=== PATIENT | female | born 1995 | race Caucasian/White ===

== ENCOUNTER 2024-07-09 09:20 | Outpatient (CLI) | payer OTHER, SELFPAY ==
[2024-07-09 09:52] LABS: Basophils Absolute Auto 0.04 K/mm3 (0.00-0.10); Basophils Percent Auto 0.5 % (0.0-1.0); Eosinophils Absolute Auto 0.23 K/mm3 (0.02-0.50); Eosinophils Percent Auto 3.1 % (1.0-6.0); Hemoglobin 12.8 g/dL (12.0-15.0); Immature Granulocyte Absolute 0.01 K/mm3 (0.00-0.00); Immature Granulocyte Percent A 0.1 % (0.0-0.0); Lymphocytes Absolute Auto 1.73 K/mm3 (1.10-4.50); Lymphocytes Percent Auto 23.7 % (18.0-42.0); Mean Corpuscular HGB Conc 31.2 g/dL (32-36); Mean Corpuscular Hemoglobin 25.1 pg (27.0-31.0); Mean Corpuscular Volume 80.4 fL (78.0-102.0); Mean Platelet Volume 9.6 fl (9.2-11.8); Monocytes Absolute Auto 0.38 K/mm3 (0.10-0.90); Monocytes Percent Auto 5.2 % (2.0-11.0); Neutrophils Absolute Auto 4.92 K/mm3 (1.70-7.20); Neutrophils Percent Auto 67.4 % (50.0-70.0); Platelet Count Result 322 K/mm3 (150-420); Red Cell Distribution Width 15.4 % (11.6-14.4); White Blood Count 7.3 K/mm3 (4.8-10.8)
[2024-07-09] MEDS: ONDANSETRON INJ 4 MG/2 ML VIAL IV PUSH (10:11)
[2024-07-09] MEDS: SODIUM CHLORIDE 0.9% IV 1,000 ML 999 ML IVPB (10:12)
[2024-07-09 10:40] LABS: Alanine Aminotransferase 25 U/L (14-59); Albumin Level 3.6 g/dL (3.4-5.0); Alkaline Phosphatase 52 U/L (46-116); Anion Gap 6 mmol/L (4-12); Aspartate Amino Transferase 13 U/L (15-37); Bilirubin,Total 0.2 mg/dL (0.00-1.00); Blood Urea Nitrogen 8 mg/dL (7-18); Calcium 8.6 mg/dL (8.5-10.1); Carbon Dioxide 28 mmol/L (21-32); Chloride 106 mmol/L (98-108); Estimated Glomerular Filt Rate > 60; Glucose 87 mg/dL (70-99); Lipase 56 U/L (16-77); Osmolality Calculated 287 mOsm/kg (285-295); Potassium 4.2 mmol/L (3.5-5.1); Sodium 140 mmol/L (136-145); Total Protein 7.4 g/dL (6.4-8.2)
[2024-07-09 10:41] VITALS: BP 120/76; PULSE 61; RESP 18; TEMP 36.4; O2SAT 100
[2024-07-09 10:49] VITALS: BMI 33.6
[2024-07-09 10:55] LABS: CRP < 0.5 mg/dL (0.0-0.9)
== END 2024-07-09 10:57 | disposition home or self-care (01) ==
PROVIDERS: PCP Family Medicine; Visit Provider Family Medicine
DX: E86.0 Dehydration (principal)
CPT/HCPCS: 36415; 80053; 83690; 85025; 86140; 96360; 96365; 96374; J2405; J7030

== ENCOUNTER 2024-07-31 08:59 | Emergency (ER) | payer OTHER, SELFPAY ==
--- NOTE | ~2024-07-31 | CT_ITS ---
EXAMINATION: CT abdomen pelvis w con DATE: 07/31/2024 10:40 INDICATION: Right abdominal pain. Right flank pain. Nausea and vomiting. TECHNIQUE: Computed tomography (CT) of the abdomen and pelvis was performed with 100 mL Omnipaque 350 intravenous contrast. Automated exposure control and iterative reconstruction technique were employe d. The dose-length product was 1109.44 mGy-cm. COMPARISON: None. FINDINGS: The visualized portions of the lung bases demonstrate mild atelectasis. No pleural effusion . The heart size is normal. No pericardial effusion. The liver, gallbladder, spleen, pancreas, adrena l glands, and kidneys are normal. There are no dilated loops of bowel. The appendix is normal. There are no pathologically enlarged lymph nodes. There is no free intraperitoneal fluid. There is mild tho racic spondylosis. IMPRESSION: 1. No etiology for the patient's symptoms. Reviewed, dictated and finalized at location A.
--- NOTE | ~2024-07-31 | US_ITS ---
EXAMINATION: US abdomen limited DATE: 07/31/2024 11:17 INDICATION: Right upper quadrant abdominal pain. TECHNIQUE: Multiple grayscale and Doppler ultrasound images of the abdomen were obtained. COMPARISON: CT abdomen and pelvis 07/31/2024 FINDINGS: The visualized portions of the head, body, and tail of the pancreas are normal. The liver i s normal without focal lesion. There is normal flow in main portal vein. The gallbladder is normal in size. No gallstones or gallbladder wall thickening. There was no sonographic Ladd's sign. The comm on duct is normal and measures 3 mm. IMPRESSION: 1. Normal right upper quadrant ultrasound. Reviewed, dictated and finalized at location A.
--- NOTE | ~2024-07-31 | XR_ITS ---
EXAMINATION: XR chest 1V portable 07/31/2024 10:38 INDICATION: Right upper abdomen pain with inspiration PROCEDURE: AP portable chest COMPARISON: No prior studies for comparison. FINDINGS: The lungs are clear. The cardiomediastinal silhouette is within normal limits. There are no pleural effusions. There is no pneumothorax suspected. IMPRESSION: 1: NO ACUTE CARDIOPULMONARY DISEASE. Reviewed, dictated and finalized at location B.
[2024-07-31 09:01] VITALS: BP 139/92; PULSE 89; RESP 18; TEMP 36.9; O2SAT 100
[2024-07-31] MEDS: ONDANSETRON INJ 4 MG/2 ML VIAL IV PUSH (09:21)
[2024-07-31] MEDS: SODIUM CHLORIDE 0.9% IV 1,000 ML 999 ML IV CONT (09:21)
[2024-07-31 09:23] LABS: Bilirubin Urine Negative (Negative); Blood Urine Negative (Negative); Color Urine Light Yellow (Yellow); Glucose Urine UA Negative (Negative); Ketones Urine Negative (Negative); Leukocyte Esterase Ur Negative LEU/UL (Negative); Nitrate Urine Negative (Negative); Protein Urine Negative (Negative); Specific Grav Ur 1.025 (1.010-1.020); Urobilinogen Urine 0.2 mg/dL (0.2-1.0)
[2024-07-31 09:26] LABS: Add Urine Microscopic? NO; Appearance Urine Clear (Clear); Pregnancy On Board Control Positive; Urine Pregnancy Test Negative
[2024-07-31] MEDS: diphenhydrAMINE HCl INJ 50 MG/ML VIAL 25 MG IV PUSH (09:33)
[2024-07-31 09:41] LABS: Basophils Absolute Auto 0.04 K/mm3 (0.00-0.10); Basophils Percent Auto 0.6 % (0.0-1.0); Eosinophils Absolute Auto 0.24 K/mm3 (0.02-0.50); Eosinophils Percent Auto 3.4 % (1.0-6.0); Hematocrit 38.1 % (35.0-49.0); Hemoglobin 12.1 g/dL (12.0-15.0); Immature Granulocyte Absolute 0.04 K/mm3 (0.00-0.00); Immature Granulocyte Percent A 0.6 % (0.0-0.0); Lymphocytes Absolute Auto 1.82 K/mm3 (1.10-4.50); Lymphocytes Percent Auto 26.1 % (18.0-42.0); Mean Corpuscular HGB Conc 31.8 g/dL (32-36); Mean Corpuscular Hemoglobin 25.4 pg (27.0-31.0); Mean Corpuscular Volume 79.9 fL (78.0-102.0); Monocytes Absolute Auto 0.43 K/mm3 (0.10-0.90); Monocytes Percent Auto 6.2 % (2.0-11.0); Neutrophils Absolute Auto 4.39 K/mm3 (1.70-7.20); Neutrophils Percent Auto 63.1 % (50.0-70.0); Platelet Count Result 323 K/mm3 (150-420); Red Blood Count 4.77 M/mm3 (4.20-5.40)
[2024-07-31 10:01] LABS: Lactic Acid Reflex 0.7 mmol/L (0.4-2.0)
[2024-07-31 10:08] LABS: Alanine Aminotransferase 27 U/L (14-59); Albumin Level 3.2 g/dL (3.4-5.0); Alkaline Phosphatase 64 U/L (46-116); Anion Gap 10 mmol/L (4-12); Aspartate Amino Transferase 18 U/L (15-37); Bilirubin,Total 0.2 mg/dL (0.00-1.00); Blood Urea Nitrogen 10 mg/dL (7-18); Calcium 8.3 mg/dL (8.5-10.1); Carbon Dioxide 26 mmol/L (21-32); Chloride 106 mmol/L (98-108); Estimated CRCL calculation 123 ml/min; Estimated Glomerular Filt Rate > 60; Glucose 82 mg/dL (70-99); Lipase 59 U/L (16-77); Osmolality Calculated 292 mOsm/kg (285-295); Potassium 4.1 mmol/L (3.5-5.1); Sodium 142 mmol/L (136-145)
[2024-07-31] MEDS: MORPHINE SULFATE (*CRX) 4 MG/ML INJ IV PUSH (10:46)
--- NOTE | 2024-07-31 11:29 | ED.ABDPAIN ---
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 Patient does have a history of IBS. MD elicited complaint: abdominal pain and flank pain Onset (ago): hour(s) Pain Consistency: constant Location: RUQ Severity: moderate Pain scale (0-10): 6 Quality: aching Radiation: RUQ, LLQ and R flank Exacerbating factors: nothing Relieving factors: nothing Related Data Home Medications Medication Instructions Recorded Confirmed citalopram 40 mg tablet 40 mg PO DAILY 05/28/24 07/31/24 ondansetron HCl 4 mg tablet 4 mg PO Q8H 05/28/24 07/31/24 Allergies Allergy/AdvReac Type Severity Reaction Status Date / Time NSAIDS (Non-Steroidal Allergy Mild hives Verified 07/31/24 09:03 Anti-Inflamma Review of Systems Review of Systems: All systems reviewed & are unremarkable except as noted in HPI and below PMFSH Past Medical History Medical History IBS (irritable bowel syndrome) Family History Family History Grandparent Diabetes mellitus Other Cerebrovascular accident Coronary artery disease Social History Social History Smoking status: Never smoker Tobacco type: e-cigarettes/vaping Alcohol intake: current Substance use: never Living arrangements: with family Exam Const: General: healthy appearing and no acute distress Nutritional Appearance: well nourished Orientation/consciousness: patient oriented x3 Limitations: no limitations Chest: Chest palpation & inspection: normal inspection of the chest Resp: Effort & Inspection: normal respiratory effort Auscultation: clear to auscultation bilaterally Cardio: Rate: regular rate Rhythm: regular rhythm GI: GI Palp: Yes Soft to palpation and Yes Tenderness to palpation present (GI) Auscultation: normal bowel sounds : General: Yes bladder normal to palpation Urinary Catheter: Urinary Catheter: patent and draining Back/Spine/Pelvis: Back: CVA tenderness Skin: General skin exam: normal color Rashes: no rashes Wounds: no wounds Neuro: General: patient oriented x3, moves all extremities and no meningeal signs Extrem: General: normal to inspection, no clubbing, cyanosis or edema and no pedal edema Course Course Emergency Course: patient had a blood work that were within normal limits had a UA which shows no evidence of urinary tract infection, CT scan of the abdomen and pelvis with no acute abnormalities, ultrasound performed shows no evidence of gallbladder disease. Patient did receive a dose of morphine 4mg IV was given IV fluids and a dose of 4mg Zofran pain level and nausea have improved. Vital Signs Vital signs: Vital Signs Temperature 36.9 C 07/31/24 09:01 Pulse Rate 89 07/31/24 09:01 Respiratory Rate 18 07/31/24 09:01 Blood Pressure 139/92 H 07/31/24 09:01 Pulse Oximetry 100 07/31/24 09:01 Oxygen Delivery Room Air 07/31/24 09:01 Temperature 36.9 C 07/31/24 09:01 Pulse Rate 89 07/31/24 09:01 Respiratory Rate 18 07/31/24 09:01 Blood Pressure 139/92 H 07/31/24 09:01 Pulse Oximetry 100 07/31/24 09:01 Oxygen Delivery Room Air 07/31/24 09:01 MDM - Abdominal Pain Lab Data 07/31/24 09:32 07/31/24 09:32 Labs: Lab Results 07/31/2407/31
[2024-07-31 11:52] VITALS: BP 123/79; PULSE 73; RESP 16; TEMP 36.4; O2SAT 99
--- NOTE | 2024-08-02 13:19 | PC.NURSE ---
PRELIMINARY BLOOD CULTURE REPORT: NO GROWTH TO DATE.
== END 2024-07-31 11:52 | disposition home or self-care (01) ==
PROVIDERS: Emergency Provider Emergency Medicine; PCP Family Medicine
DX: K52.9 Noninfective gastroenteritis and colitis, unspecified (principal); Z79.899 Other long term (current) drug therapy
CPT/HCPCS: 36415; 71045; 74177; 76705; 80053; 81003; 81025; 83605; 83690; 85025; 87040; 96361; 96374; 96375; 99284; J1200; J2270; J2405; J7030; Q9967

== ENCOUNTER 2024-08-15 13:13 | Outpatient (CLI) | payer OTHER, SELFPAY ==
--- NOTE | ~2024-08-15 | US_ITS ---
EXAMINATION: US pelvic complete w TV DATE: 08/15/2024 14:08 INDICATION: Excessive and frequent menstruation with irregular cycle. TECHNIQUE: Multiple transabdominal and transvaginal sonographic images of the pelvis were obtained. COMPARISON: CT abdomen and pelvis 07/31/2024 FINDINGS: TRANSABDOMINAL ULTRASOUND: The uterus measures 8.0 x 3.2 x 4.3 cm. There is no free fluid in the pelvis. TRANSVAGINAL ULTRASOUND: The endometrial complex measures 8 mm in thickness. The right ovary measures 3.7 x 3.3 x 1.4 cm. The left ovary measures 3.1 x 2.3 x 1.6 cm. There is normal vascular flow in the ovaries. IMPRESSION: 1. Normal pelvis. Reviewed, dictated and finalized at location A. NG MACHINE OPERATOR HELPER IMPRESSION: 1. Normal pelvis.
== END 2024-08-15 13:14 | disposition home or self-care (01) ==
LOC: ANHIMG 13:13
PROVIDERS: PCP Family Medicine; Visit Provider Family Medicine
DX: N92.1 Excessive and frequent menstruation with irregular cycle (principal)
CPT/HCPCS: 76830; 76856

== ENCOUNTER 2024-09-01 08:39 | Outpatient (CLI) | payer OTHER, SELFPAY ==
--- NOTE | ~2024-09-01 | XR_ITS ---
EXAMINATION: XR chest 2V DATE: 09/01/2024 08:58 INDICATION: Influenza due to other identified influenza virus. TECHNIQUE: Frontal and lateral views of the chest were obtained. COMPARISON: Chest single view 07/31/2024 FINDINGS: There is no pneumonia, pleural effusion, or pneumothorax. The heart size is normal. IMPRESSION: 1. No acute cardiopulmonary disease. Reviewed, dictated and finalized at location A. TRICIAN FRONT
[2024-09-01 08:55] LABS: Basophils Absolute Auto 0.04 K/mm3 (0.00-0.10); Basophils Percent Auto 0.6 % (0.0-1.0); Eosinophils Absolute Auto 0.29 K/mm3 (0.02-0.50); Eosinophils Percent Auto 4.4 % (1.0-6.0); Hemoglobin 12.5 g/dL (12.0-15.0); Immature Granulocyte Absolute 0.02 K/mm3 (0.00-0.00); Immature Granulocyte Percent A 0.3 % (0.0-0.0); Lymphocytes Absolute Auto 1.69 K/mm3 (1.10-4.50); Lymphocytes Percent Auto 25.6 % (18.0-42.0); Mean Corpuscular HGB Conc 32.1 g/dL (32-36); Mean Corpuscular Hemoglobin 25.5 pg (27.0-31.0); Mean Corpuscular Volume 79.4 fL (78.0-102.0); Mean Platelet Volume 9.1 fl (9.2-11.8); Monocytes Absolute Auto 0.45 K/mm3 (0.10-0.90); Monocytes Percent Auto 6.8 % (2.0-11.0); Neutrophils Absolute Auto 4.12 K/mm3 (1.70-7.20); Neutrophils Percent Auto 62.3 % (50.0-70.0); Platelet Count Result 313 K/mm3 (150-420); Red Blood Count 4.91 M/mm3 (4.20-5.40); Red Cell Distribution Width 14.4 % (11.6-14.4); White Blood Count 6.6 K/mm3 (4.8-10.8)
[2024-09-01 10:07] LABS: Alanine Aminotransferase 28 U/L (14-59); Albumin Level 3.5 g/dL (3.4-5.0); Alkaline Phosphatase 60 U/L (46-116); Anion Gap 7 mmol/L (4-12); Aspartate Amino Transferase 16 U/L (15-37); Bilirubin,Total 0.3 mg/dL (0.00-1.00); Blood Urea Nitrogen 11 mg/dL (7-18); Calcium 8.7 mg/dL (8.5-10.1); Carbon Dioxide 26 mmol/L (21-32); Chloride 105 mmol/L (98-108); Estimated Glomerular Filt Rate > 60; Glucose 88 mg/dL (70-99); Osmolality Calculated 284 mOsm/kg (285-295); Potassium 4.2 mmol/L (3.5-5.1); Sodium 138 mmol/L (136-145); Total Protein 6.8 g/dL (6.4-8.2)
== END 2024-09-01 08:40 | disposition home or self-care (01) ==
LOC: CHSLAB 08:41
PROVIDERS: PCP Family Medicine; Visit Provider Family Medicine
DX: J10.1 Influenza due to other identified influenza virus with other respiratory manifestations (principal)
CPT/HCPCS: 36415; 71046; 80053; 85025

== ENCOUNTER 2024-10-02 12:00 | Outpatient (CLI) | payer OTHER, SELFPAY ==
[2024-10-04 20:43] LABS: Almond (F20) IgE <0.10 kU/L; Brazil Nut (f18) <0.10 kU/L; Brazil Nut (f18) Class 0; Cashew Nut (F202) IgE <0.10 kU/L; Cashew Nut (F202) IgE Class 0; Codfish (F3) IgE <0.10 kU/L; Codfish (F3) IgE Class 0; Cow's Milk (F2) IgE 0.14 kU/L; Cow's Milk (F2) IgE Class 0/1; Egg White (F1) IgE <0.10 kU/L; Egg White (F1) IgE Class 0; Hazelnut (F17) IgE <0.10 kU/L; Hazelnut (F17) IgE Class 0; Macadamia Nut (rf345) <0.10 kU/L; Macadamia Nut (rf345) Class 0; Peanut (F13) IgE <0.10 kU/L; Peanut (F13) IgE Class 0; Salmon (F41) IgE <0.10 kU/L; Salmon (F41) IgE Class 0; Scallop (F338) IgE <0.10 kU/L; Scallop (F338) IgE Class 0; Sesame Seed 0.19 kU/L; Soybean (F14) IgE <0.10 kU/L; Soybean (F14) IgE Class 0; Tuna (F40) <0.10 kU/L; Tuna (F40) Class 0; Walnut (F256) IgE <0.10 kU/L; Walnut (F256) IgE Class 0; Wheat (F4) IgE <0.10 kU/L; Wheat (F4) IgE Class 0
[2024-10-06 15:58] LABS: Immunoglobulin A 313 mg/dL (47-310); TTG IGA AB <1.0 U/mL
== END 2024-10-02 12:01 | disposition home or self-care (01) ==
LOC: CHSLAB 12:02
PROVIDERS: PCP Family Medicine; Visit Provider Family Medicine
DX: R11.10 Vomiting, unspecified (principal)
CPT/HCPCS: 36415; 82784; 83516; 86003

== ENCOUNTER 2024-11-07 09:04 | Emergency (ER) | payer OTHER, SELFPAY ==
--- NOTE | ~2024-11-07 | CT_ITS ---
EXAMINATION: CT BRAIN W/O DATE: 11/07/2024 10:20 INDICATION: Syncope. Headache. History of positive. TECHNIQUE: Computed tomography (CT) of the head was performed without intravenous contrast. The dose- length product was 605.33 mGy-cm. Automated exposure control and iterative reconstruction technique w ere employed. COMPARISON: No prior studies for comparison. FINDINGS: Normal brain parenchymal volume for age. Normal curtis-white differentiation. No acute intrac ranial hemorrhage, infarction, mass or mass effect. No ventriculomegaly or midline shift. Midline sagittal images demonstrate a normal corpus callosum, c raniovertebral junction and sella turcica. Basilar cisterns are patent. Paranasal sinuses and mastoids are pneumatized. No depressed skull fractures. IMPRESSION: 1. No acute intracranial abnormality. Reviewed, dictated and finalized at location A. ERN FELT HAT BLOCKER
--- NOTE | 2024-11-07 09:05 | ED_ITS ---
HPI - Syncope General Chief Complaint: Syncope Stated Complaint: URI Time Seen by Provider: 11/07/24 09:04 Source: patient Mode of arrival: ambulatory Limitations: no limitations History of Present Illness HPI narrative: Patient is a 29-year-old female with a syncopal episode this morning. She took a warm shower and then came out got slightly dizzy sat in a chair and stood up and proceeded to have syncope for a few seconds. No seizure activity. This was unwitnessed however. MD complaint: loss of consciousness and collapsed Onset (ago): hour(s) (2) Duration of episode: 30 -: second(s) Description of event: other ( Patient collapse with syncope) Prodromal symptoms: other ( dizziness) Witnessed: No Context: standing up Injuries sustained associated with event: none Current symptoms: none History: other ( none) Treatments prior to arrival: none Related Data Home Medications ?Medication ?Instructions ?Recorded ?Confirmed ?Last Taken ?Type ondansetron HCl 4 mg tablet 4 mg PO Q8H 05/28/24 09/18/24 Unknown History Allergies Allergy/AdvReac Type Severity Reaction Status Date / Time NSAIDS (Non-Steroidal Allergy Mild hives Verified 09/18/24 14:12 Anti-Inflamma Review of Systems 2 Review of Systems: All systems reviewed & are unremarkable except as noted in HPI and below Constitutional: Constitutional: Reports no additional constitutional complaints Eyes: Eyes: Reports no additional eye complaints ENT: Reports system reviewed and no additional complaints, except as documented Cardiovascular: Cardiovascular: Reports no additional cardiovascular complaints Respiratory: Respiratory: Reports no additional respiratory complaints Gastrointestinal: Gastrointestinal: Reports no additional gastrointestinal complaints Genitourinary: Genitourinary: Reports no additional female genitourinary complaints Musculoskeletal: Musculoskeletal: Reports no additional musculoskeletal complaints Integumentary/Breasts: Skin/Breast: Reports system reviewed and no additional complaints, except as docu Neurologic: Reports system reviewed and no additional complaints, except as documented Psychiatric: Psychiatric: Reports no additional psychiatric complaints Endocrine: Endocrine: Reports no additional endocrine complaints Hematologic/Lymphatic: Hematologic/Lymphatic: Reports no additional hematologic/lymphatic complaints Allergic/Immunologic: Allergic/Immunologic: Reports no additional allergic/immunologic complaints PMFSH Past Medical History Medical History BRBPR (bright red blood per rectum) Rectal pain Nausea & vomiting Alternating constipation and diarrhea IBS (irritable bowel syndrome) Family History Family History Grandparent Diabetes mellitus Other Cerebrovascular accident Coronary artery disease Social History Social History Smoking status: Never smoker Tobacco type: e-cigarettes/vaping Alcohol intake: current Substance use: never Living arrangements: with family Exam 2 Const: General: healthy appearing Nutritional Appearance: well nourished Orientation/consciousness: patient oriented x3 HENMT: Head: normal to inspection Ears: external ears normal F bree/Nose/Sinus: Normal external nose present Eyes: Conjunctivae: conjunctivae normal Pupils: Equal, round and reactive pupils present EOM: EOMs intact bilaterally Neck: Neck: normal visual inspection Chest: Chest palpation & inspection: normal inspection of the chest Resp: Effort & Inspection: normal respiratory effort and not labored A uscultation: clear to auscultation bilaterally and no crackles Cardio: Rate: regular rate Rhythm: regular rhythm Heart sounds: no murmurs GI: Inspection: non-distended GI Palp: Yes Soft to palpation and No Tenderness to palpation present (GI) Auscultation: normal bowel sounds : General: Yes bladder normal to palpation Back/Spine/Pelvis: Back: no CVA tenderness Skin: General skin exam: normal color Rashes: no rashes Wounds: no wounds Neuro: General: patient oriented x3, moves all extremities, no meningeal signs, no focal motor deficits and CN's II-XI intact bilaterally Cranial nerves: Yes Nystagmus not present Speech: normal speech Gait exam (Neuro): Normal gait present Extrem: General: normal to inspection Psych: Mental Status: mental status grossly normal Affect: normal affect Attitude: cooperative Course Vital Signs Vital signs: Vital Signs Temperature 36.7 C 11/07/24 09:08 Pulse Rate 80 11/07/24 09:08 Respiratory Rate 18 11/07/24 09:08 Blood Pressure 117/71 11/07/24 09:08 Pulse Oximetry 100 11/07/24 09:08 Oxygen Delivery Room Air 11/07/24 09:08 Temperature 36.4 C L 11/07/24 10:11 Pulse Rate 73 11/07/24 10:11 Respiratory Rate 18 11/07/24 10:11 Blood Pressure 117/75 11/07/24 10:11 Pulse Oximetry 100 11/07/24 10:11 Oxygen Delivery Room Air 11/07/24 10:11 MDM - Syncope MDM Narrative Medical decision making narrative: patient is a 29-year-old female with a syncopal episode this morning. No prior syncope. We will do workup at this time. Lab Data Attestation: I reviewed the patient's lab results. 11/07/24 09:59 11/07/24 09:59 Labs: Lab Results 11/07/24 11/07/24 Range/Units 09:12 09:59 WBC 9.7 (4.8-10.8) K/mm3 RBC 4.79 (4.20-5.40) M/mm3 Hgb 12.1 (12.0-15.0) g/dL Hct 39.4 (35.0-49.0) % MCV 82.3 (78.0-102.0) fL MCH 25.3 L (27.0-31.0) pg MCHC 30.7 L (32-36) g/dL RDW 13.2 (11.6-14.4) % Plt Count 325 (150-420) K/mm3 MPV 9.3 (9.2-11.8) fl Immature Gran % (Auto) 0.4 H (0.0-0.0) % Neut % (Auto) 76.1 H (50.0-70.0) % Lymph % (Auto) 15.8 L (18.0-42.0) % [place] % (Auto) 5.3 (2.0-11.0) % Eos % (Auto) 1.9 (1.0-6.0) % Baso % (Auto) 0.5 (0.0-1.0) % Lymph # (Auto) 1.52 (1.10-4.50) K/mm3 [place] # (Auto) 0.51 (0.10-0.90) K/mm3 Eos # (Auto) 0.18 (0.02-0.50) K/mm3 Baso # (Auto) 0.05 (0.00-0.10) K/mm3 Abs Immat Gran (auto) 0.04 H (0.00-0.00) K/mm3 Absolute Neuts (auto) 7.35 H (1.70-7.20) K/mm3 Absolute Nucleated RBC 0.00 (0.00-0.00) K/mm3 Nucleated RBC % 0.0 (0-0.0) % Sodium 137 (136-145) mmol/L Potassium 4.3 (3.5-5.1) mmol/L Chloride 104 (98-108) mmol/L Carbon Dioxide 27 (21-32) mmol/L Anion Gap 6 (4-12) mmol/L BUN 11 (7-18) mg/dL Creatinine 0.68 (0.55-1.02) mg/dL Estim Creat Clear Calc 118 ml/min Estimated GFR > 60 (59 - ) Glucose 85 (70-99) mg/dL Calculated Osmolality 282 L (285-295) mOsm/kg Calcium 8.4 L (8.5-10.1) mg/dL Total Bilirubin 0.4 (0.00-1.00) mg/dL AST 11 L (15-37) U/L ALT 19 (14-59) U/L Alkaline Phosphatase 57 (46-116) U/L Total Protein 7.2 (6.4-8.2) g/dL Albumin 3.6 (3.4-5.0) g/dL Urine Color Light yellow (Yellow) Urine Appearance Clear (Clear) Urine pH 8.0 (5.0-8.0) Ur Specific [place] 1.020 (1.010-1.020) Urine Protein Negative (Negative) Urine Glucose (UA) Negative (Negative) Urine Ketones Negative (Negative) Ur Blood (Man) Negative (Negative) Urine Nitrate Negative (Negative) Urine Bilirubin Negative (Negative) Urine Urobilinogen 0.2 (0.2-1.0) mg/dL Leukocyte Esterase Rfl Negative (Negative) BRYAN/UL Urine Test Negative Influenza A (RT-PCR) Negative (Negative) Influenza B (RT-PCR) Negative (Negative) RSV (RT-PCR) Negative (Negative) SARS-CoV-2 RNA (RT-PCR) Negative (Negative) Group A Strep (PCR) Detected A (Negative) Imaging Data Attestation: I personally reviewed and interpreted this imaging study as follows: Radiologist's impression: CT scan of the head was negative for acute process ECG Data EKG #1: Attestation: I personally reviewed and interpreted this ECG as follows: ECG completion date: 11/07/24 ECG completion time: 10:06 EKG Interpretation: normal rate, sinus rhythm, no ectopy, non-specific ST changes, normal QRS, normal QT, NL axis and no acute changes Discharge Plan Discharge Clinical Impression: Strep pharyngitis Syncope Qualifiers: Syncope type: vasovagal syncope Qualified Code(s): R55 - Syncope and collapse Patient Disposition: Home, Self-Care Condition: Stable Instructions: Antibiotic Form, Strep Throat (ED), Syncope (DC) Additional Instructions: Please follow-up with the primary doctor in the next week. I suggest further syncope workup with her primary doctor. You may also want to see a neurologist. Patient Language: Wolof Prescriptions: New amoxicillin 500 mg capsule 500 mg PO BID 10 Days Qty: 20 0RF No Action dicyclomine 10 mg capsule 10 mg PO TID PRN (Reason: abdominal pain) Qty: 90 5RF ondansetron HCl 4 mg tablet 4 mg PO Q8H etonogestrel-ethinyl estradiol [NuvaRing] 0.12-0.015 mg/24 hr ring 1 vag ring vaginal ONCE Qty: 3 3RF ipratropium bromide 42 mcg (0.06 %) spray,non-aerosol 2 spray intranasal TID Qty: 15 5RF Rx Instructions: administer into each nostril tirzepatide 5 mg/0.5 mL pen injector 5 mg subcut WEEKLY Qty: 2 0RF fluconazole 150 mg tablet 150 mg PO DAILY Qty: 1 0RF alprazolam 0.5 mg tablet 0.5 mg PO BID PRN (Reason: anxiety) Qty: 20 0RF amoxicillin 500 mg tablet 500 mg PO Q12H Qty: 20 0RF pantoprazole 40 mg tablet,delayed release (DR/EC) See Rx Instructions .ROUTE .COMPLEX Qty: 42 0RF Dose Instruction: TAKE 1 TABLET BY MOUTH EVERY MORNING Rx Instructions: TAKE 1 TABLET BY MOUTH EVERY MORNING citalopram 40 mg tablet 40 mg PO DAILY Qty: 30 2RF Follow-up/Referrals: Lavelle Chávez DO [Primary Care Provider] - Time of Disposition: 10:31
[2024-11-07 09:08] VITALS: BP 117/71; PULSE 80; RESP 18; TEMP 36.7; O2SAT 100
--- NOTE | 2024-11-07 09:15 | ECG_ITS ---
Test Date: 2024-11-07 09:22:07 Measurements Intervals [place] Rate: 68 P: 49 NC: 148 QRS: 76 QRSD: 96 T: 59 QT: 403 QTc: 429 Interpretive Statements SINUS RHYTHM No previous ECG available for comparison Electronically Signed On 11-07-2024 14:12:35 ORCHESTRATOR by Ramya Spence M.D.
--- NOTE | 2024-11-07 09:16 | PC.NURSE ---
covid culture sent to lab
[2024-11-07 09:20] LABS: Add Urine Microscopic? NO; Appearance Urine Clear (Clear); Bilirubin Urine Negative (Negative); Blood Urine Negative (Negative); Color Urine Light Yellow (Yellow); Glucose Urine UA Negative (Negative); Ketones Urine Negative (Negative); Leukocyte Esterase Ur Negative LEU/UL (Negative); Nitrate Urine Negative (Negative); Protein Urine Negative (Negative); Urobilinogen Urine 0.2 mg/dL (0.2-1.0)
[2024-11-07 09:21] LABS: Pregnancy On Board Control Positive; Urine Pregnancy Test Negative
--- OUTSIDE RECORDS SUMMARY | 2024-11-07 09:24 | XMS_ITS | Clinical Summary ---
Author Organization [facility] Address [address] [place] [address] Phone Care Team Providers Care Bacteriology Research Assistant Name Role Phone Syed Santos Primary Care Provider [phone] Meredith Meng APRN, PILE DRIVER OPERATOR [employer] Unavailable Allergies Active Allergy Reactions Criticality Noted Date Comments Nsaids Anaphylaxis,Runny Nose,Other (see Comments) High 11/07/2016 Other reaction(s): Cough Prochlorperazine Unknown 02/03/2021 Sulfa Antibiotics Hallucinations Medium 09/24/2020 Medications Cyanocobalamin (VITAMIN B-12) 100 MCG Tablet Take 50 mcg by mouth. Active ferrous sulfate 325 (65 Fe) MG Tablet Take 325 mg by mouth. Active Ascorbic Acid (Vitamin C) 100 MG Chewable Tablet Take 1 Tablet by mouth daily. Active citalopram (CeleXA) 40 MG TabletIndication s:Anxiety Take 1 Tablet by mouth daily. 90 Tablet 3 11/15/2023 Active hydrOXYzine (ATARAX) 25 MG TabletIndication s:Anxiety,Panic disorder Take 1 Tablet by mouth every 6 hours as needed for Anxiety or Sleep. 90 Tablet 01/24/2024 Active Acetaminophen (TYLENOL PO) Take by mouth. Active dicyclomine (BENTYL) 10 MG CapsuleIndicatio ns:Irritable bowel syndrome, unspecified type Take 1 Capsule by mouth 3 times daily (before meals). 90 Capsule 3 02/04/2024 Active ondansetron (ZOFRAN) 4 MG Tablet Take 1 Tablet by mouth every 8 hours as needed for Nausea - 1st line. 30 Tablet 04/03/2024 Active Active Problems Problem Noted Date Diagnosed Date Palpitations 11/15/2023 11/15/2023 Adrenal insufficiency 01/22/2023 11/15/2023 Persistent mood disorder 08/08/2019 024 Overview (11/15/2023): Last Assessment & Plan: She was having trouble with anxiety and depression. Her fiance is deployed to the [employer]. We increase the dose of Celexa from 20 mg daily to 40 mg daily and her mood has definitely improved, but she still experiences quite a bit of irritability. Friends and her fiance have mentioned it during their interactions. She wonders about a mood stabilizer. She has seen friends who are on Seroquel which seems to help. She is not in counseling and does not seem interested in pursuing this. We discussed that proper sleep and regular activity could help stabilize her mood. Weight loss would also probably help. She does sleep well. She denies excess use of caffeine, or any significant use of alcohol. She denies street drug use. We will lower the dose of Celexa slightly to 30 mg daily and add a low-dose of Seroquel. Follow-up early as needed for this problem. Alternating constipation and diarrhea 04/07/2015 11/15/2023 Overview (11/15/2023): Tends to be constipated for a week (moves her bowels every 2-3 days), than has a day or two of frequent watery stools and perianal irritation with wipe type hematochezia. This is them again followed by a week or more of constipation. Last Assessment & Plan: She has a fairly long history of constipation alternating with diarrhea or loose stools. The exact duration is unclear but it is a pattern she is familiar with. She will have two or three days without a bowel movement, then have a very difficult and hard stool. This goes on for a week or so, followed by one or two days of watery stools and perianal irritation with wipe type hematochezia. There is never any blood mixed in with the stool. The pattern then repeats itself. Her diet sounds pretty average. She does not eat a lot of fast food. She tends to barbecue. She tries to eat plenty of fruit and vegetables. I recommended that she gradually increase the amount of fiber in her diet to about 35 g per day. She might want to take a supplement. If symptoms persist, we can pursue additional evaluation. Encounters Date Type Department Care Team Description 09/18/2024 Telephone [facility] - Primary Care - [address] [place] [address] Syed Santos, OLINDA Cancer Screening from Last 3 Months Immunizations Immunization Administration Dates Next Due DTP Vaccine 1997 DTP-Hib 1997,1997 Hepatitis B Vaccine, Pediatric/adolescent 1997,1997,1997 Hib Vaccine,unspecified Formulation 1997 Human Papillomavirus Vaccine (HPV), quadrivalent 09/11/2014,05/15/2014 Inactivated Polio Vaccine 1997,1997, 1997 Influenza Vaccine, Quadrivalent, PF 08/07/2023,1 Influenza, Seasonal, Injectable, Undefined 10/17,07/06/2014 Meningococcal MCV4O 05/15/2014 TDAP Vaccine 05/06/2021 Family History Medical History Relation Name Comments Heart Attack Maternal Aunt Congestive Heart Failure Maternal Grandmother Diabetes Maternal Grandmother Relation Name Status Comments Maternal Aunt Maternal Grandmother Social History Tobacco Use Types Packs/Day Years Used Date Smoking Tobacco: Never Smokeless Tobacco: Never Tobacco Cessation:Counseling Given: Not Answered Alcohol Use Standard Drinks/Week Comments Yes 0 (1 standard drink = 0.6 oz pur e alcohol) social PHQ-2 Answer Date Recorded Total Score - Questions 1-9 0 05/2024 Sexually Active Control Partners Comments Yes Oral Contraceptive Comments Unknown Sex and Gender Information Value Date Recorded Sex Assigned at Not on file Legal Sex Female 8:17 PM CDT Gender Identity Not on file Sexual Orientation Not on file Last Filed Vital Signs Vital Sign Reading Time Taken Comments Blood Pressure 106/62 02/04/2024 8:12 AM CDT Pulse 94 02/04/2024 8:12 AM CDT Temperature 36.9 ??C (98.4 ??F) 02/04/2024 8:12 AM CD T Respiratory Rate 14 02/04/2024 8:12 AM CDT Oxygen Saturation 99% 02/04/2024 8:12 AM CDT Inhaled Oxygen Concentration - - Weight 86 kg (189 lb 11.2 oz) 02/04/2024 8:12 AM CDT Height 160 cm (5' 3 ) 02/04/2024 8:12 AM CDT Body Mass Index 33.6 02/04/2024 8:12 AM CDT Plan of Treatment Upcoming Encounters Date Type Department Care Team (Late st Contact Info) Description 11/17/2024 9:15 AM CHILDREN LIBRARIAN Office Visit [facility] - Primary Care - [address] [place] [address] Syed Santos PAC [address] [place] [address] Health Maintenance Due Date Last Done Comments Hepatitis C Virus (HCV) Screening 1997 Pap Smear 2018 Influenza Immunization (#1) 2024 08/07/2023, 1 SARS-COV-2 Immunization ( season) 2024 03/24/2021, 02/24/2021 DTaP/Tdap/Td Immunization (5 - Td or Tdap) 05/06/2031 05/06/2021, 1997, 1997, Additional history exists Respiratory Syncytial Virus (RSV) Immunization (Adult) (1 - 1-dose 75+ series) 02/20/2072 Hepatitis B Immunization Completed 998, 1997, 1997 Meningococcal Immunization (ACWY) Completed 05/15/2014 Human Papillomavirus (HPV) Immunization Discontinued 09/11/2014, 05/15/2014 Pneumococcal Immunization Combined Aged Out No longer eligible based on patient's age to complete this topic Rotavirus Immunization Aged Out No lo nger eligible based on patient's age to complete this topic Care Teams Bacteriology Research Assistant Relationship Specialty Start Date End Date Syed Santos, OLINDA [address] [place] [address] PCP - General Physician Floor Inspector 11/20/23 Meredith Meng, GLOBAL PROGRAM DIRECTOR, PILE DRIVER OPERATOR [employer] [address] [place] [address] Nurse Practitioner Advanced Practice Nurse 02/04/24
[2024-11-07 09:44] LABS: Strep Group A RT-PCR DETECTED (Negative)
--- OUTSIDE RECORDS SUMMARY | 2024-11-07 09:50 | XMS_ITS | Clinical Summary ---
Author Organization [facility] [place] [address] [facility] Address [address] [place] [address] Care Team Providers Care Lime Plant Operator Name Role Phone Miscellaneous, Not In File Primary Care Provider Unavailable Allergies Active Allergy Reactions Criticality Noted Date Comments Nsaids (Non-Steroidal Anti-Inflammatory Drug) Cough,Rhinitis,Anaphylaxi s,Other (See comments) High 11/07/2016 Prochlorperazine Unknown 02/03/2021 Sulfa (Sulfonamide Antibiotics) Hallucinations Medium 09/24/2020 Medications acetaminophen (TYLENOL) 500 mg tablet Take 500 mg by mouth every 6 (six) hours as needed for pain Active citalopram (CeleXA) 20 mg tabletIndicatio ns:Anxiety with Depression Take 1.5 tablets (30 mg total) by mouth daily 45 tablet 5 1 Active QUEtiapine (SEROquel) 25 mg tabletIndicatio ns:Depression Treatment Adjunct Take 1 tablet (25 mg total) by mouth nightly 30 tablet 1 Active Additional Information Patient not taking.Reported on 10/27/2021 omeprazole OTC (PriLOSEC OTC) 20 mg EC tabletIndicatio ns:Heartburn Take 1 tablet (20 mg total) by mouth daily 30 tablet 1 Active Additional Information Patient taking differently:20 mg oralAs needed, Indications: Heartburn, Reported on 10/27/2021 cyanocobalamin (Vitamin B-12) 100 mcg tablet Take 0.5 tablets (50 mcg total) by mouth Active ferrous sulfate 325 mg (65 mg of elemental iron) tablet Take 1 tablet (325 mg total) by mouth Active midodrine (PROAMATINE) 5 mg tablet Take 1 tablet (5 mg total) by mouth 3 Active ondansetron (ZOFRAN) 4 mg tabletIndicatio ns:Menstrual nausea. Take 1 tablet (4 mg total) by mouth every 8 (eight) hours as needed for nausea or vomiting 20 tablet 2 3 Active etonogestreL-et hinyl estradioL (NUVARING, ELURYNG) 0.12-0.015 mg/24 hr vaginal ring Insert vaginally and leave in place for 3 consecutive weeks, then remove for 1 week. 3 each 1 4 01/31/20 25 Active fluconazole (DIFLUCAN) 150 mg tablet Take one tablet and repeat in 3 days. 2 tablet 4 Active Active Problems Problem Noted Date Diagnosed Date Nausea 05/06/2021 Overview (05/06/2021): Associated with menses. Assessment & Plan (05/06/2021 4:36 PM CDT): She gets nauseated around her menses. Zofran helps. We sent in a refill. Metrorrhagia 01/12/2021 Overview (02/03/2021): Had a normal period October 09, bled for 9 days, missed November, started again in middle of December and very heavy middle of January (had clots). Went to ER. Assessment & Plan (02/20/2021 2:21 PM CDT): Normally her menstrual cycle is regular. She had a normal cycle an October, bled for nine days, then missed November altogether. She had a cycle towards the middle of December. She then had a very heavy menstrual cycle this month. She was passing clots the size of golf balls. She bled for longer than usual. She went to the ER and they told her she had a ? swollen cervix? . Hemoglobin was normal as were platelets. WBC was mildly elevated. test was negative. She is not bleeding now. She does have some mild pelvic discomfort. She is not due for a follow-up with end user support specialist until May. We will check pelvic and transvaginal ultrasound for fibroids, ovarian cysts, other abnormalities. Obesity (BMI 35.0-39.9 without comorbidity) 10/2019 Assessment & Plan (05/06/2021 4:34 PM CDT): We discussed her weight she has put on a few lb. We recommended attention to her diet and significant weight loss. Assessment & Plan (02/03/2021 4:17 PM CDT): She is moderately obese. She says it started about six months ago. She is trying to get it under control and get her weight down. I encouraged her efforts. Persistent mood disorder 08/08/2019 Assessment & Plan (05/06/2021 4:34 PM CDT): She was having trouble with anxiety and depression. Her fiance is deployed to [place]. We increase the dose of Celexa [...] Follow-up early as needed for this problem. Assessment & Plan (02/03/2021 4:17 PM CDT): She has had a fair amount of anxiety and dysphoria since her fiance was deployed to [facility] for a year. He is in the [employer]. She got started on Celexa and during a recent emergency room visit, the dose was increased to 40 mg a day. She says her mood is doing a little better. She denies feeling suicidal. She is not seeing a psychiatrist. We will continue current therapy and have her follow-up in three months. Heartburn 04/07/2019 Overview (05/06/2021): Intermittent symptoms, certain foods make it worse. Assessment & Plan (05/06/2021 4:38 PM CDT): She has been having some intermittent but fairly frequent heartburn. Certain foods predictably make it worse such as red sauce, garlic, and chocolate. She does not drink a lot of coffee but occasionally has an iced coffee. She denies alcohol use or exposure to tobacco. She denies trouble swallowing. She has tried OTC meds like Pepcid without any benefit. We recommended avoidance of foods that bring on the heartburn. We recommended significant weight loss. We will put her on some omeprazole/Prilosec to help her deal with the symptoms. Alternating constipation and diarrhea 04/07/2015 Overview (02/03/2021): Tends to be constipated for a week (moves her bowels every 2-3 days), than has a day or two of frequent watery stools and perianal irritation with wipe type hematochezia. This is them again followed by a week or more of constipation. Assessment & Plan (02/20/2021 2:23 PM CDT): She has a fairly long history of [...] symptoms persist, we can pursue additional evaluation. Resolved Problems Problem Noted Date Diagnosed Date Resolved Date Rash 10/01/2020 11/10/2021 Overview (11/10/2021): Lateral armpits and left side of neck. Resolved with topical steroids, probably a mild eczema. Assessment & Plan (05/06/2021 4:31 PM CDT): Her rash in the anterior axillae has resolved with use of low potency hydrocortisone cream. It was probably a mild eczema. We will monitor clinically. Assessment & Plan (02/03/2021 4:21 PM CDT): She has noticed a itchy rash on the lateral wall of each axilla and on the left side of her neck for the past several months. She applies hydrocortisone cream and it seems to subside. Exam shows some mildly hyper pigmented skin in these areas. The borders are ill-defined but each area measures approximately 4 x 5 cm. There is a slight suggestion of urticaria. It could be a mild eczema. Since the OTC hydrocortisone is helping, she can continue applying it. Immunizations Name Administration Dates Next Due DTP 1997 DTP / HiB 1997,1997 HPV, Quadrivalent 09/11/2014,05/15/2014 Hep B, Adolescent or Pediatric 1997,1996,1997 HiB 1997 IPV 1997,1997,1997 Influenza, Quadrivalent, Spl it, Preservative Free, Intramuscular 07/14/2019 Influenza, Trivalent, IM (MDV) 10/17/2015,2013 Meningococcal Conjugate (Menveo) 05/15/2014 Moderna SARS-CoV-2 Monovalen t Vaccination (12+ YRS) 03/24/2021,02/24/2021 Tdap 05/06/2021 Surgical History Surgery Date Site/Laterality Comments HM PAP SMEAR WITH HPV 07/28/2021 Normal, Amanda Hamlin, BR[facility]. Medical History Medical History Date Comments Covid-19 01/03/2021 Lost taste and s azael, had fatigue, got better. Rash 10/01/2020 Lateral armpits and left side of neck. Resolved with topical steroids, probably a mild eczema. Family History Medical History Relation Name Comments Diabetes type II Maternal Grandfather Diabetes type II Maternal Grandmother Hyperlipidemia Maternal Grandmother Hypertension Maternal Grandmother Hypertension Mother Relation Name Status Comments Maternal Grandfather Maternal Grandmother Mother Social History Tobacco Use Types Packs/Day Years Used Date Smoking Tobacco: Never Smokeless Tobacco: Never Tobacco Cessation:Counseling Given: Not Answered AUDIT-C Answer Date Recorded Q1: How often do you have a drink containing alc ohol? 2-4 times a month 02/03/2021 Average Number of Drinks Not on file 021 Frequency of Binge Drinking Not on file 01/07 PHQ-2 Answer Date Recorded PHQ-2 Total Score (If total score is 3 or more points, staff should administer the PHQ-9) 1 07/28/2021 Personal Safety Answer Date Recorded Getting School Help Needed Not on file 07/05 Comments No Sex and Gender Information Value Date Recorded Sex Assigned at Not on file Legal Sex Female 11:14 PM SLAG WORKER Gender Identity Not on file Sexual Orientation Not on file Occupation Industry Job Start Date Job End Date [employer] Not on file Not on file Not on file Obstetrics History Para Term AB IAB SAB Ectopic Multiple Livin g Live Births 1 0 0 0 0 0 0 0 0 0 0 Date Outcome GA Total Labor Labor/2nd/3rd Weight Sex Type Anes PTL Neyda A1 A5 Name Clin Last Filed Vital Signs Vital Sign Reading Time Taken Comments Blood Pressure 124/78 08/15/2023 10:20 AM SLAG WORKER Pulse 71 06/25/2023 12:48 PM CDT Temperature 36.6 ??C (97.9 ??F) 06/25/2023 12:48 PM C DT Respiratory Rate 16 06/25/2023 12:48 PM CDT Oxygen Saturation 100% 06/25/2023 12:48 PM CDT Inhaled Oxygen Concentration - - Weight 89.4 kg (197 lb) 08/15/2023 10:20 AM SLAG WORKER Height 162.6 cm (5' 4 ) 08/15/2023 10:20 AM SLAG WORKER Body Mass Index 33.81 08/15/2023 10:20 AM SLAG WORKER Plan of Treatment Health Maintenance Due Date Last Done Comments Hepatitis C Screening 1997 Varicella Vaccines (1 of 2 - 13+ 2-dose series) 2010 HPV Vaccines (3 - 3-dose series) 12/04/2014 09/11/2014, 05/15/2014 Cervical Cancer Screening 07/28/2022 07/28/2021 Depression Screening 07/28/2022 07/28/2021, 02/04/20 Regular Well Visit/Exam 18-64 07/28/2022 07/28/2021, 02/03/2021 Covid-19 Vaccine ( season) 2024 03/24/2021, 02/24/2021 Influenza Vaccine (#1) 2024 9, 10/17/2015, 07/06/2014 DTaP/Tdap/Td Vaccine (5 - Td or Tdap) 05/06/2031 05/06/2021, 1997, 1997, Additional history exists Pneumococcal vaccine <65 Aged Out No longer eligible based on patient's age to complete this topic Procedures Procedure Name Priority Date/Time Associated Diagnosis Comments PAP WITH REFLEX TO HIGH RISK HPV Routine 07/28/2021 10:41 AM CDT from Last 3 Months or Most Recently Relevant to Health Maintenance Results * Pap with reflex to High Risk HPV (07/28/2021 10:41 AM CDT) CLINICAL INFORMATION: Naomi Mccabe Comment:CERVICAL CANCER SCRE ENING LMP Naomi Mccabe Comment:07/15/2021 Previous Pap Naomi Mccabe Comment:INFORMATION NOT PROV IDED Prev. Bx Naomi Mccabe Comment:INFORMATION NOT PROV IDED SOURCE: Naomi Mccabe Comment:Cervix, Endocervix Pap, specimen adequacy Naomi Mccabe Comment: Satisfactory for evaluation. Endocervical/transformation zone component present. HPV interp Naomi Mccabe Comment:Negative for intraep ithelial lesion or malignancy. COMMENTS Naomi Mccabe Comment: This Pap test has been evaluated with computer assisted technology. Hand Icer [facility] st Nikos Mccabe Comment: ABC, CT(ASCP) [facility] [place] [address] [place] [address] Comment Naomi Mccabe Comment: EXPLANATORY NOTE: The Pap is a screening test for cervical cancer. It is not a diagnostic test and is subject to false negative and false positive results. It is most reliable when a satisfactory sample, regularly obtained, is submitted with relevant clinical findings and history, and when the Pap result is evaluated along with historic and current clinical information. 07/28/2021 10:4 1 AM CDT 07/29/2021 4:27 AM CDT us Amanda Hamlin NP LAB CYTOLOGY ORDERABLES [facility] [address] [address] [phone] from Last 3 Months or Most Recently Relevant to Health Maintenance Insurance [employer] ACCESS [employer] OPEN ACCESS [facility] Care Teams Lime Plant Operator Relationship Specialty Start Date End Date Miscellaneous, Not In File PCP - General 06/25/23
--- OUTSIDE RECORDS SUMMARY | 2024-11-07 09:50 | XMS_ITS | Referral Summary ---
Author Organization [facility] [place] [address] [facility] Address [address] [place] [address] Care Team Providers Care Ambulette Driver Name Role Phone Miscellaneous, Not In File [...] is not due for a follow-up with director hospice operations until May. We will check pelvic and [...] dysphoria since her fiance was deployed to [facility] for a year. He is in the [...] t Vaccination (12+ YRS) 03/24/2021,02/24/2021 Tdap 05/06/2021 Social History Tobacco Use Types Packs/Day Years [...] on file Legal Sex Female 11:14 PM MANAGER EQUITY Gender Identity Not on file Sexual Orientation Not on file Occupation Industry Job Start Date Job End Date [employer] Not on file Not on file Not on file Last Filed Vital Signs Vital Sign Reading Time Taken Comments Blood Pressure 124/78 08/15/2023 10:20 AM MANAGER EQUITY Pulse 71 06/25/2023 12:48 PM CDT Temperature 36.6 ??C (97.9 ??F) 06/25/2023 12:48 PM C DT Respiratory Rate 16 06/25/2023 12:48 PM CDT Oxygen Saturation 100% 06/25/2023 12:48 PM CDT Inhaled Oxygen Concentration - - Weight 89.4 kg (197 lb) 08/15/2023 10:20 AM MANAGER EQUITY Height 162.6 cm (5' 4 ) 08/15/2023 10:20 AM MANAGER EQUITY Body Mass Index 33.81 08/15/2023 10:20 AM MANAGER EQUITY Plan of Treatment Not on file Procedures Procedure Name Priority Date/Time Associated Diagnosis Comments PAP WITH REFLEX TO HIGH RISK HPV Routine 07/28/2021 10:41 AM CDT from Last 3 Months or Most Recently Relevant to Health Maintenance Results * Pap with reflex to High Risk HPV (07/28/2021 10:41 AM CDT) CLINICAL INFORMATION: Naomi Mccabe Comment:CERVICAL CANCER SCRE ENING LMP Naomi Mccabe Comment:07/15/2021 Previous Pap Naomi DiagnosticsJai Mccabe Comment:INFORMATION NOT PROV IDED Prev. Bx Naomi Mccabe Comment:INFORMATION NOT PROV IDED SOURCE: Naomi Mccabe Comment:Cervix, Endocervix Pap, specimen adequacy Naomi Mccabe Comment: Satisfactory for evaluation. Endocervical/transformation zone component present. HPV interp Naomi Mccabe Comment:Negative for intraep ithelial lesion or malignancy. COMMENTS Naomi Mccabe Comment: This Pap test has been evaluated with computer assisted technology. Development Technical Lead Juan Miguel Mcneill Comment: ABC, CT(ASCP) CT screening location: [place] [address] [address] [address] Comment Naomi Mccabe Comment: EXPLANATORY NOTE: The [...] 07/29/2021 4:27 AM CDT us Amanda Hamlin SUPERINTENDENT OPERATIONS DIVISION LAB CYTOLOGY ORDERABLES Final Re sult [place] [address] [address] [place] [phone] from Last 3 Months or Most Recently Relevant to Health Maintenance Insurance [employer] OPEN ACCESS [employer] OPEN ACCESS [facility] Care Teams Ambulette Driver Relationship Specialty Start Date End Date Miscellaneous, Not In File PCP - General 06/25/23
--- OUTSIDE RECORDS SUMMARY | 2024-11-07 09:50 | XMS_ITS | Clinical Summary ---
Author Organization [facility] Address [address] [place] [address] Phone Care Team Providers Care Virtualization Engineer Name Role Phone Syed Santos Primary Care Provider Meredith Meng APRN, EDITOR DICTIONARY Unavailable Allergies Active Allergy Reactions Criticality Noted [...] depression. Her fiance is deployed to the [place]. We increase the dose of Celexa [...] Department Care Team Description 09/18/2024 [address] [facility] - Primary Care - [address] [place] [address] Syed Santos, OLINDA Cancer Screening from [...] st Contact Info) Description 11/17/2024 9:15 AM CLEANING MACHINE OPERATOR Office Visit [facility] - Primary Care - [address] [place] [address] Syed Santos PAC [address] [place] [address] Health Maintenance Due Date Last [...] age to complete this topic Care Teams Virtualization Engineer Relationship Specialty Start Date End Date Syed Santos, OLINDA [address] [place] [address] PCP - General Physician Design Technician 11/20/23 Meredith Meng, FRONT END DEVELOPER DESIGNER, EDITOR DICTIONARY [address] [place] [address] Nurse Practitioner Advanced Practice Nurse 02/04/24
[2024-11-07 09:54] LABS: SARS-CoV-2 RNA PCR Negative (Negative)
[2024-11-07 09:57] LABS: Influenza A QL RT-PCR Negative (Negative); Influenza B QL RT-PCR Negative (Negative); RSV RNA, RT-PCR Negative (Negative)
[2024-11-07 10:05] LABS: Basophils Absolute Auto 0.05 K/mm3 (0.00-0.10); Basophils Percent Auto 0.5 % (0.0-1.0); Eosinophils Absolute Auto 0.18 K/mm3 (0.02-0.50); Eosinophils Percent Auto 1.9 % (1.0-6.0); Hematocrit 39.4 % (35.0-49.0); Hemoglobin 12.1 g/dL (12.0-15.0); Immature Granulocyte Absolute 0.04 K/mm3 (0.00-0.00); Immature Granulocyte Percent A 0.4 % (0.0-0.0); Lymphocytes Absolute Auto 1.52 K/mm3 (1.10-4.50); Lymphocytes Percent Auto 15.8 % (18.0-42.0); Mean Corpuscular HGB Conc 30.7 g/dL (32-36); Mean Corpuscular Hemoglobin 25.3 pg (27.0-31.0); Mean Corpuscular Volume 82.3 fL (78.0-102.0); Mean Platelet Volume 9.3 fl (9.2-11.8); Monocytes Absolute Auto 0.51 K/mm3 (0.10-0.90); Monocytes Percent Auto 5.3 % (2.0-11.0); Neutrophils Absolute Auto 7.35 K/mm3 (1.70-7.20); Neutrophils Percent Auto 76.1 % (50.0-70.0); Platelet Count Result 325 K/mm3 (150-420); Red Blood Count 4.79 M/mm3 (4.20-5.40); Red Cell Distribution Width 13.2 % (11.6-14.4); White Blood Count 9.7 K/mm3 (4.8-10.8)
[2024-11-07 10:11] VITALS: BP 117/75; PULSE 73; RESP 18; TEMP 36.4; O2SAT 100
[2024-11-07 10:20] LABS: Alanine Aminotransferase 19 U/L (14-59); Albumin Level 3.6 g/dL (3.4-5.0); Alkaline Phosphatase 57 U/L (46-116); Anion Gap 6 mmol/L (4-12); Aspartate Amino Transferase 11 U/L (15-37); Bilirubin,Total 0.4 mg/dL (0.00-1.00); Blood Urea Nitrogen 11 mg/dL (7-18); Calcium 8.4 mg/dL (8.5-10.1); Carbon Dioxide 27 mmol/L (21-32); Chloride 104 mmol/L (98-108); Estimated CRCL calculation 118 ml/min; Estimated Glomerular Filt Rate > 60; Glucose 85 mg/dL (70-99); Osmolality Calculated 282 mOsm/kg (285-295); Potassium 4.3 mmol/L (3.5-5.1); Sodium 137 mmol/L (136-145); Total Protein 7.2 g/dL (6.4-8.2)
== END 2024-11-07 10:40 | disposition home or self-care (01) ==
PROVIDERS: Emergency Provider Emergency Medicine; PCP Family Medicine
DX: J02.0 Streptococcal pharyngitis (principal); R55 Syncope and collapse; Z20.822 Contact with and (suspected) exposure to COVID-19
CPT/HCPCS: 36415; 70450; 80053; 81003; 81025; 85025; 87637; 87651; 93005; 99284

== ENCOUNTER 2024-12-19 15:15 | Outpatient (NON) | payer OTHER, SELFPAY ==
--- OUTSIDE RECORDS SUMMARY | 2024-12-19 15:19 | XMS_ITS | Clinical Summary ---
Author Organization [facility] [place] [address] [facility] Address [address] [place] [address] Care Team Providers Care Microwave Remote Sensing Scientist Name Role Phone Miscellaneous, Not In File [...] and they told her she had a s wollen cervix . Hemoglobin was normal as were platelets. WBC was mildly elevated. test was negative. She is not bleeding now. She does have some mild pelvic discomfort. She is not due for a follow-up with sped teacher until May. We will check pelvic and [...] dysphoria since her fiance was deployed to [facility] for a year. He is [...] helping, she can continue applying it. Immunizations Immunization Administration Dates Next Due DTP 1997 DTP [...] on file Legal Sex Female 11:14 PM SAP SD ANALYST Gender Identity Not on file Sexual Orientation Not on file Occupation Industry Job Start Date Job End Date [employer] Not on file Not on file [...] Comments Blood Pressure 124/78 08/15/2023 10:20 AM SAP SD ANALYST Pulse 71 06/25/2023 12:48 PM CDT Temperature 36.6 C (97.9 F) 06/25/2023 12:48 PM CDT Respiratory Rate 16 06/25/2023 12:48 PM CDT Oxygen Saturation 100% 06/25/2023 12:48 PM CDT Inhaled Oxygen Concentration - - Weight 89.4 kg (197 lb) 08/15/2023 10:20 AM SAP SD ANALYST Height 162.6 cm (5' 4 ) 08/15/2023 10:20 AM SAP SD ANALYST Body Mass Index 33.81 08/15/2023 10:20 AM SAP SD ANALYST Plan of Treatment Health Maintenance Due Date [...] 05/06/2031 05/06/2021, 1997, 1997, Additional history exists Hepatitis B Screening Completed 1997 , 1997, 1997 Pneumococcal vaccine <65 Aged Out No longer [...] has been evaluated with computer assisted technology. Shipping Manager [facility] st Nikos Mccabe Comment: ABC, CT(ASCP) CT screening location: [place] [address] [address] [id number] Comment Applied CavitationOlga Lidia Mccabe Comment: EXPLANATORY NOTE: The Pap is [...] NP LAB CYTOLOGY ORDERABLES Final Re sult [facility] [address] [address] [phone] from Last 3 Months or Most Recently Relevant to Health Maintenance Insurance [employer] OPEN ACCESS [facility] Care Teams Microwave Remote Sensing Scientist Relationship Specialty Start Date End Date Miscellaneous, Not In File PCP - General 06/25/23
--- OUTSIDE RECORDS SUMMARY | 2024-12-19 15:19 | XMS_ITS | Referral Summary ---
Author Organization [facility] [place] 163 [facility] Address [address] [address] Care Team Providers Care Tool Procurement Coordinator Name Role Phone Miscellaneous, Not In File [...] is not due for a follow-up with batch unit treater until May. We will check pelvic and [...] dysphoria since her fiance was deployed to [facility] for a year. He is in [...] on file Legal Sex Female 11:14 PM DATA SECURITY ANALYST Gender Identity Not on file Sexual Orientation Not on file Occupation Industry Job Start Date Job End Date [employer] Not on file Not on file Not on file Last Filed Vital Signs Vital Sign Reading Time Taken Comments Blood Pressure 124/78 08/15/2023 10:20 AM DATA SECURITY ANALYST Pulse 71 06/25/2023 12:48 PM CDT Temperature 36.6 C (97.9 F) 06/25/2023 12:48 PM CDT Respiratory Rate 16 06/25/2023 12:48 PM CDT Oxygen Saturation 100% 06/25/2023 12:48 PM CDT Inhaled Oxygen Concentration - - Weight 89.4 kg (197 lb) 08/15/2023 10:20 AM DATA SECURITY ANALYST Height 162.6 cm (5' 4 ) 08/15/2023 10:20 AM DATA SECURITY ANALYST Body Mass Index 33.81 08/15/2023 10:20 AM DATA SECURITY ANALYST Plan of Treatment Not on file Procedures [...] has been evaluated with computer assisted technology. Creative Specialist Juan Miguel Mcneill Comment: ABC, CT(ASCP) CT screening location: [place] [address] [address] [id number] Comment Naomi Mccabe Comment: EXPLANATORY NOTE: The [...] NP LAB CYTOLOGY ORDERABLES Final Re sult [facility] [address] [address] [place] [phone] from Last 3 Months or Most Recently Relevant to Health Maintenance Insurance [employer] OPEN ACCESS [employer] OPEN ACCESS [facility] Care Teams Tool Procurement Coordinator Relationship Specialty Start Date End Date Miscellaneous, Not In File PCP - General 06/25/23
--- OUTSIDE RECORDS SUMMARY | 2024-12-19 15:19 | XMS_ITS | Clinical Summary ---
Author Organization [facility] Address [address] [place] [address] Phone Care Team Providers Care Desktop Specialist Name Role Phone Syed Santos Primary Care Provider Meredith Meng APRN, PATTERN SETTER Unavailable Allergies Active Allergy Reactions Criticality Noted [...] depression. Her fiance is deployed to the [place]. We increase the dose of Celexa [...] symptoms persist, we can pursue additional evaluation. Immunizations Immunization Administration Dates Next Due DTP [...] 94 02/04/2024 8:12 AM CDT Temperature 36.9 C (98.4 F) 02/04/2024 8:12 AM CDT Respiratory Rate 14 02/04/2024 8:12 AM CDT Oxygen Saturation 99% 02/04/2024 8:12 AM CDT Inhaled Oxygen Concentration - - Weight 86 kg (189 lb 11.2 oz) 02/04/2024 8:12 AM CDT Height 160 cm (5' 3 ) 02/04/2024 8:12 AM CDT Body Mass Index 33.6 02/04/2024 8:12 AM CDT Plan of Treatment Health Maintenance Due Date Last Done Comments Hepatitis C Virus (HCV) Screening 1997 Pap Smear 2018 Influenza Immunization (#1) 06/08/202407/10, 07/14/2019, 10/17/2015, Additional history exists SARS-COV-2 Immunization ( season) 2024 03/24/2021, 02/24/2021 [...] age to complete this topic Care Teams Desktop Specialist Relationship Specialty Start Date End Date Syed Santos, PAC [address] [place] [address] PCP - General Physician Engine Oiler 11/20/23 Meredith Meng APRN, PATTERN SETTER [address] [place] [address] Nurse Practitioner Advanced Practice Nurse 02/04/24
== END 2024-12-19 15:16 | disposition home or self-care (01) ==
PROVIDERS: Visit Provider Nurse Practitioner Family
DX: R19.8 Other specified symptoms and signs involving the digestive system and abdomen (principal); R11.2 Nausea with vomiting, unspecified; R11.10 Vomiting, unspecified
CPT/HCPCS: 83993

== ENCOUNTER 2025-02-03 12:45 | Outpatient (CLI) | payer OTHER, SELFPAY ==
[2025-02-03 13:06] LABS: Basophils Absolute Auto 0.07 K/mm3 (0.00-0.10); Basophils Percent Auto 0.8 % (0.0-1.0); Eosinophils Absolute Auto 0.24 K/mm3 (0.02-0.50); Eosinophils Percent Auto 2.7 % (1.0-6.0); Hematocrit 36.1 % (35.0-49.0); Hemoglobin 11.3 g/dL (12.0-15.0); Immature Granulocyte Absolute 0.04 K/mm3 (0.00-0.00); Immature Granulocyte Percent A 0.4 % (0.0-0.0); Lymphocytes Absolute Auto 1.94 K/mm3 (1.10-4.50); Lymphocytes Percent Auto 21.5 % (18.0-42.0); Mean Corpuscular HGB Conc 31.3 g/dL (32-36); Mean Corpuscular Hemoglobin 25.2 pg (27.0-31.0); Mean Corpuscular Volume 80.6 fL (78.0-102.0); Mean Platelet Volume 9.4 fl (9.2-11.8); Monocytes Absolute Auto 0.44 K/mm3 (0.10-0.90); Monocytes Percent Auto 4.9 % (2.0-11.0); Neutrophils Absolute Auto 6.28 K/mm3 (1.70-7.20); Neutrophils Percent Auto 69.7 % (50.0-70.0); Platelet Count Result 333 K/mm3 (150-420); Red Blood Count 4.48 M/mm3 (4.20-5.40); Red Cell Distribution Width 13.7 % (11.6-14.4)
[2025-02-03 13:22] LABS: INR 0.9; Prothrombin Time 10.2 Seconds (9.50-12.1)
--- OUTSIDE RECORDS SUMMARY | 2025-02-03 13:48 | XMS_ITS | Clinical Summary ---
Author Organization [facility] Address [address] [place] [address] Phone Care Team Providers Care Community Health Agent Name Role Phone Syed Santos Primary Care Provider Meredith Meng APRN, RESOURCE MANAGEMENT SPECIALIST Unavailable Allergies Active Allergy Reactions Criticality Noted [...] depression. Her fiance is deployed to the [place]. We increase the dose of Celexa [...] Comments Hepatitis C Virus (HCV) Screening 1997 SARS-COV-2 Immunization ( season) 2024 03/24/2021, 02/24/2021 Pap Smear 07/28/2024 07/28/2021 Influenza Immunization (Season Ended) 2025 08/07/2023, 07/14/2019, 10/17/2015, Additional history exists DTaP/Tdap/Td Immunization (5 - Td or Tdap) [...] Procedure Name Priority Date/Time Associated Diagnosis Comments PATHOLOGY CYTOLOGY ARC CUTTER 07/28/2021 12:00 AM CDT from Last 3 Months or Most Recently Relevant to Health Maintenance Results * PATHOLOGY CYTOLOGY ARC CUTTER (07/28/2021 12:00 AM CDT) 07/28/2021 us Provider Scan PATHOLOGY/CYTOLOGY ORDERABLES Fi nal Result SCAN from Last 3 Months or Most Recently Relevant to Health Maintenance Care Teams Community Health Agent Relationship Specialty Start Date End Date Syed Santos, PAC [address] [place] [id number] PCP - General Physician Resource Management Specialist 11/20/23 Meredith Meng, EDUCATION MANAGERS, RESOURCE MANAGEMENT SPECIALIST [address] [place] [address] Nurse Practitioner Advanced Practice Nurse 02/04/24
--- OUTSIDE RECORDS SUMMARY | 2025-02-03 13:48 | XMS_ITS | Referral Summary ---
Author Organization [facility] 163 [facility] Address [address] [place] [address] Care Team Providers Care Rim Turning Finisher Name Role Phone Miscellaneous, Not In File [...] for 1 week. 3 each 1 4 Active fluconazole (DIFLUCAN) 150 mg tablet Take [...] is not due for a follow-up with pier worker until May. We will check pelvic and [...] depression. Her fiance is deployed to the [facility]. We increase the dose of Celexa from [...] on file Legal Sex Female 11:14 PM PORT PURSER Gender Identity Not on file Sexual Orientation Not on file Occupation Industry Job Start Date Job End Date [employer] Not on file Not on file Not on file Last Filed Vital Signs Vital Sign Reading Time Taken Comments Blood Pressure 124/78 08/15/2023 10:20 AM PORT PURSER Pulse 71 06/25/2023 12:48 PM CDT Temperature 36.6 C (97.9 F) 06/25/2023 12:48 PM CDT Respiratory Rate 16 06/25/2023 12:48 PM CDT Oxygen Saturation 100% 06/25/2023 12:48 PM CDT Inhaled Oxygen Concentration - - Weight 89.4 kg (197 lb) 08/15/2023 10:20 AM PORT PURSER Height 162.6 cm (5' 4 ) 08/15/2023 10:20 AM PORT PURSER Body Mass Index 33.81 08/15/2023 10:20 AM PORT PURSER Plan of Treatment Not on file Procedures Procedure Name Priority Date/Time Associated Diagnosis Comments PAP WITH REFLEX TO HIGH RISK HPV Routine 07/28/2021 10:41 AM CDT from Last 3 Months or Most Recently Relevant to Health Maintenance Results * Pap with reflex to High Risk HPV (07/28/2021 10:41 AM CDT) CLINICAL INFORMATION: Naomi Mccabe Comment:CERVICAL CANCER SCRE ENING LMP Naomi DiagnosticsJai Mccabe Comment:07/15/2021 Previous Pap Naomi DiagnosticsJai Mccabe Comment:INFORMATION NOT PROV IDED Prev. Bx Naomi Mccabe Comment:INFORMATION NOT PROV IDED SOURCE: Naomi Mccabe Comment:Cervix, Endocervix Pap, specimen adequacy Naomi Mccabe Comment: Satisfactory for evaluation. Endocervical/transformation zone component present. HPV interp Naomi Mccabe Comment:Negative for intraep ithelial lesion or malignancy. COMMENTS Naomi Nikos Mccabe Comment: This Pap test has been evaluated with computer assisted technology. Box Spring Maker Juan Miguel Nikos Mccabe Comment: ABC, CT(ASCP) CT screening location: [place] [address] [address] [id number] Comment Rust Nikos Mccabe Comment: EXPLANATORY NOTE: The Pap is [...] NP LAB CYTOLOGY ORDERABLES Final Re sult [facility] [address] [place] [address] from Last 3 Months or Most Recently Relevant to Health Maintenance Insurance [employer] OPEN ACCESS [employer] OPEN ACCESS [facility] [address] [place] [address] Care Teams Rim Turning Finisher Relationship Specialty Start Date End Date Miscellaneous, Not In File PCP - General 06/25/23
--- OUTSIDE RECORDS SUMMARY | 2025-02-03 13:48 | XMS_ITS | Clinical Summary ---
Author Organization [facility] 163 [facility] Address [address] [place] [address] Care Team Providers Care Sinker Winder Name Role Phone Miscellaneous, Not In File [...] is not due for a follow-up with allergist/immunologist until May. We will check pelvic and [...] depression. Her fiance is deployed to the [facility]. We increase the dose of Celexa from [...] fiance was deployed to [facility] for a year. He is in the [...] on file Legal Sex Female 11:14 PM FEATHER CURLING MACHINE OPERATOR Gender Identity Not on file Sexual Orientation Not on file Occupation Industry Job Start Date Job End Date [employer] Not on file Not on file [...] Comments Blood Pressure 124/78 08/15/2023 10:20 AM FEATHER CURLING MACHINE OPERATOR Pulse 71 06/25/2023 12:48 PM CDT Temperature 36.6 C (97.9 F) 06/25/2023 12:48 PM CDT Respiratory Rate 16 06/25/2023 12:48 PM CDT Oxygen Saturation 100% 06/25/2023 12:48 PM CDT Inhaled Oxygen Concentration - - Weight 89.4 kg (197 lb) 08/15/2023 10:20 AM FEATHER CURLING MACHINE OPERATOR Height 162.6 cm (5' 4 ) 08/15/2023 10:20 AM FEATHER CURLING MACHINE OPERATOR Body Mass Index 33.81 08/15/2023 10:20 AM FEATHER CURLING MACHINE OPERATOR Plan of Treatment Health Maintenance Due Date Last Done Comments Hepatitis C Screening 1997 Varicella Vaccines (1 of 2 - 13+ 2-dose series) 2010 HPV Vaccines (3 - 3-dose series) 12/04/2014 09/11/2014, 05/15/2014 Cervical Cancer Screening 07/28/2022 07/28/2021 Depression Screening 07/28/2022 07/28/2021, 02/04/20 Regular Well Visit/Exam 18-64 07/28/2022 07/28/2021, 02/03/2021 Covid-19 Vaccine ( season) 2024 03/24/2021, 02/24/2021 Influenza Vaccine (Season Ended) 2025 07/14/2019, 10/17/2015, 07/06/2014 DTaP/Tdap/Td Vaccine (5 - Td [...] has been evaluated with computer assisted technology. Labor Conciliator Juan Miguel Mcneill Comment: ABC, CT(ASCP) CT screening location: Naomi Carreon [facility] [address] [id number] Comment [employer]ath[employer]ga Lidia Mccabe Comment: EXPLANATORY NOTE: The Pap [...] NP LAB CYTOLOGY ORDERABLES Final Re sult [facility] Mccabe [address] [phone] from Last 3 Months or Most Recently Relevant to Health Maintenance Insurance [employer] OPEN ACCESS HEALTHLINK OPEN ACCESS [facility] Care Teams Sinker Winder Relationship Specialty Start Date End Date Miscellaneous, Not In File PCP - General 06/25/23
[2025-02-03 14:00] LABS: Alanine Aminotransferase 19 U/L (14-59); Albumin Level 3.6 g/dL (3.4-5.0); Alkaline Phosphatase 66 U/L (46-116); Anion Gap 4 mmol/L (4-12); Aspartate Amino Transferase 12 U/L (15-37); Bilirubin,Total 0.5 mg/dL (0.00-1.00); Blood Urea Nitrogen 9 mg/dL (7-18); Calcium 8.7 mg/dL (8.5-10.1); Carbon Dioxide 27 mmol/L (21-32); Chloride 102 mmol/L (98-108); Estimated Glomerular Filt Rate > 60; Folic Acid 9.9 ng/mL (8.6->20); Glucose 82 mg/dL (70-99); Osmolality Calculated 273 mOsm/kg (285-295); Potassium 3.9 mmol/L (3.5-5.1); Sodium 133 mmol/L (136-145); Total Protein 7.1 g/dL (6.4-8.2); Vitamin B12 428 pg/mL (193-986)
[2025-02-03 14:01] LABS: Thyroid Stimulating Hormone Reflex 2.03 u/IU/mL (0.36-3.74)
== END 2025-02-03 12:46 | disposition home or self-care (01) ==
PROVIDERS: PCP Family Medicine; Visit Provider Family Medicine
DX: N92.1 Excessive and frequent menstruation with irregular cycle (principal); E03.9 Hypothyroidism, unspecified; R10.9 Unspecified abdominal pain; E53.8 Deficiency of other specified B group vitamins
CPT/HCPCS: 36415; 80053; 82607; 82746; 84443; 85025; 85610

== ENCOUNTER 2025-02-18 09:45 | Outpatient (CLI) | payer OTHER, SELFPAY ==
--- NOTE | ~2025-02-18 | US_ITS ---
US abdomen limited INDICATION: Common duct stone. PROCEDURE: Realtime right upper abdominal ultrasound. COMPARISON: No prior studies for comparison. FINDINGS: The pancreas is normal without focal mass or pancreatic ductal dilation. Liver echotexture is normal without focal mass or intrahepatic biliary dilatation. There is normal directional flow i n the portal vein. The gallbladder is normal without stones, gallbladder wall thickening or pericholecystic fluid. Comm on bile duct measures 3 mm. No sonographic Ladd's sign. IMPRESSION: 1: Normal limited abdominal ultrasound. Reviewed, dictated and finalized at location A.
--- OUTSIDE RECORDS SUMMARY | 2025-02-18 10:03 | XMS_ITS | Clinical Summary ---
Author Organization [facility] Address [address] [place] [address] Phone Care Team Providers Care Blow Machine Tender Starch Spraying Name Role Phone Syed Santos Primary Care Provider Meredith Meng APRN, PLANT TENDER Unavailable Allergies Active Allergy Reactions Criticality Noted [...] depression. Her fiance is deployed to the [place]. We increase the dose of Celexa [...] Comments Hepatitis C Virus (HCV) Screening 1997 Human Papillomavirus (HPV) Immunization (3 - 3-dose series) 12/04/2014 09/11/2014, 05/15/2014 SARS-COV-2 Immunization ( season) 2024 03/24/2021, 02/24/2021 Pap Smear 07/28/2024 07/28/2021 Influenza Immunization (Season Ended) 2025 08/07/2023, 07/14/2019, 10/17/2015, Additional history exists DTaP/Tdap/Td Immunization (5 - Td or Tdap) 05/06/2031 05/06/2021, 1997, 1997, Additional history exists Respiratory Syncytial Virus (RSV) Immunization (Adult) (1 - 1-dose 75+ series) 02/20/2072 Hepatitis B Immunization Completed 998, 1997, 1997 Meningococcal Immunization (ACWY) Completed 05/15/2014 Pneumococcal Immunization Combined Aged Out No longer eligible based on patient's age to complete this topic Rotavirus Immunization Aged Out No lo nger eligible based on patient's age to complete this topic Procedures Procedure Name Priority Date/Time Associated Diagnosis Comments PATHOLOGY CYTOLOGY STATISTICAL METHODS PROFESSOR 07/28/2021 12:00 AM CDT from Last 3 Months or Most Recently Relevant to Health Maintenance Results * PATHOLOGY CYTOLOGY STATISTICAL METHODS PROFESSOR (07/28/2021 12:00 AM CDT) 07/28/2021 us Provider Scan PATHOLOGY/CYTOLOGY ORDERABLES Fi nal Result SCAN from Last 3 Months or Most Recently Relevant to Health Maintenance Care Teams Blow Machine Tender Starch Spraying Relationship Specialty Start Date End Date Syed Santos, PAC [address] [place] [address] PCP - General Physician Internet And E Business Project Manager 11/20/23 Meredith Meng, CASTING HOUSE WORKER, PLANT TENDER [address] [place] [address] Nurse Practitioner Advanced Practice Nurse 02/04/24
--- OUTSIDE RECORDS SUMMARY | 2025-02-18 10:03 | XMS_ITS | Clinical Summary ---
Author Organization [facility] 163 [facility] Address [address] [address] Care Team Providers Care Air Traffic Supervisor Name Role Phone Miscellaneous, Not In File [...] is not due for a follow-up with motor grader rough grade until May. We will check pelvic and [...] depression. Her fiance is deployed to the [facility]. We increase the dose of Celexa from [...] dysphoria since her fiance was deployed to [facility] for a year. He is [...] on file Legal Sex Female 11:14 PM DATABASE SUPPORT Gender Identity Not on file Sexual Orientation Not on file Occupation Industry Job Start Date Job End Date [employer] Not on file Not on file Not [...] Comments Blood Pressure 124/78 08/15/2023 10:20 AM DATABASE SUPPORT Pulse 71 06/25/2023 12:48 PM CDT Temperature 36.6 C (97.9 F) 06/25/2023 12:48 PM CDT Respiratory Rate 16 06/25/2023 12:48 PM CDT Oxygen Saturation 100% 06/25/2023 12:48 PM CDT Inhaled Oxygen Concentration - - Weight 89.4 kg (197 lb) 08/15/2023 10:20 AM DATABASE SUPPORT Height 162.6 cm (5' 4 ) 08/15/2023 10:20 AM DATABASE SUPPORT Body Mass Index 33.81 08/15/2023 10:20 AM DATABASE SUPPORT Plan of Treatment Health Maintenance Due Date [...] has been evaluated with computer assisted technology. Dietary Supervisor Juan Mgiuel Mcneill Comment: ABC, CT(ASCP) CT screening location: [place] [facility] [address] [phone] Comment Robosoft TechnologiesKathOlga Lidia Mccabe Comment: EXPLANATORY NOTE: The Pap [...] LAB CYTOLOGY ORDERABLES Final Re sult [facility]osoft TechnologiesSt Mccabe [address] [phone] from Last 3 Months or Most Recently Relevant to Health Maintenance Insurance [employer] OPEN ACCESS HEALTHLINK OPEN ACCESS [facility] Care Teams Air Traffic Supervisor Relationship Specialty Start Date End Date Miscellaneous, Not In File PCP - General 06/25/23
--- OUTSIDE RECORDS SUMMARY | 2025-02-18 10:04 | XMS_ITS | Referral Summary ---
Author Organization [facility] 163 [facility] Address [address] [place] [address] Care Team Providers Care Nailing Machine Operator Name Role Phone Miscellaneous, Not In [...] is not due for a follow-up with filter press supervisor until May. We will check pelvic and [...] depression. Her fiance is deployed to the [facility]. We increase the dose of Celexa [...] dysphoria since her fiance was deployed to [facility] for a year. He is [...] on file Legal Sex Female 11:14 PM FRONT OFFICE ADMINISTRATOR Gender Identity Not on file Sexual Orientation Not on file Occupation Industry Job Start Date Job End Date [employer] Not on file Not on file Not on file Last Filed Vital Signs Vital Sign Reading Time Taken Comments Blood Pressure 124/78 08/15/2023 10:20 AM FRONT OFFICE ADMINISTRATOR Pulse 71 06/25/2023 12:48 PM CDT Temperature 36.6 C (97.9 F) 06/25/2023 12:48 PM CDT Respiratory Rate 16 06/25/2023 12:48 PM CDT Oxygen Saturation 100% 06/25/2023 12:48 PM CDT Inhaled Oxygen Concentration - - Weight 89.4 kg (197 lb) 08/15/2023 10:20 AM FRONT OFFICE ADMINISTRATOR Height 162.6 cm (5' 4 ) 08/15/2023 10:20 AM FRONT OFFICE ADMINISTRATOR Body Mass Index 33.81 08/15/2023 10:20 AM FRONT OFFICE ADMINISTRATOR Plan of Treatment Not on file Procedures [...] has been evaluated with computer assisted technology. Electrical And Electronic Assembler Juan Miguel Nikos Mccabe Comment: ABC, CT(ASCP) CT screening location: [place] [address] [address] [phone] Comment [facility] Nikos Mccabe Comment: EXPLANATORY NOTE: The Pap [...] NP LAB CYTOLOGY ORDERABLES Final Re sult [facility] [address] [place] [address] from Last 3 Months or Most Recently Relevant to Health Maintenance Insurance [employer] OPEN ACCESS HEALTHLINK OPEN ACCESS [facility] Care Teams Nailing Machine Operator Relationship Specialty Start Date End Date Miscellaneous, Not In File PCP - General 06/25/23
[2025-02-18 10:43] LABS: Basophils Absolute Auto 0.06 K/mm3 (0.00-0.10); Basophils Percent Auto 0.9 % (0.0-1.0); Eosinophils Percent Auto 3.1 % (1.0-6.0); Hematocrit 37.6 % (35.0-49.0); Hemoglobin 11.4 g/dL (12.0-15.0); Immature Granulocyte Absolute 0.02 K/mm3 (0.00-0.00); Immature Granulocyte Percent A 0.3 % (0.0-0.0); Lymphocytes Absolute Auto 1.66 K/mm3 (1.10-4.50); Lymphocytes Percent Auto 25.9 % (18.0-42.0); Mean Corpuscular HGB Conc 30.3 g/dL (32-36); Mean Corpuscular Hemoglobin 24.5 pg (27.0-31.0); Mean Corpuscular Volume 80.9 fL (78.0-102.0); Mean Platelet Volume 9.9 fl (9.2-11.8); Monocytes Absolute Auto 0.36 K/mm3 (0.10-0.90); Monocytes Percent Auto 5.6 % (2.0-11.0); Neutrophils Absolute Auto 4.12 K/mm3 (1.70-7.20); Neutrophils Percent Auto 64.2 % (50.0-70.0); Platelet Count Result 353 K/mm3 (150-420); Red Blood Count 4.65 M/mm3 (4.20-5.40); Red Cell Distribution Width 13.7 % (11.6-14.4); White Blood Count 6.4 K/mm3 (4.8-10.8)
[2025-02-18 11:19] LABS: Alanine Aminotransferase 15 U/L (6-35); Alkaline Phosphatase 45 U/L (38-126); Anion Gap 6 mmol/L (4-12); Aspartate Amino Transferase 19 U/L (14-36); Bilirubin,Total 0.3 mg/dL (0.2-1.3); Blood Urea Nitrogen 8 mg/dL (7-17); CRP < 0.5 mg/dL (<1.0); Calcium 8.4 mg/dL (8.4-10.2); Carbon Dioxide 23 mmol/L (22-30); Chloride 109 mmol/L (98-107); Estimated Glomerular Filt Rate > 60; Glucose 90 mg/dL (65-110); Osmolality Calculated 284 mOsm/kg (285-295); Potassium 4.3 mmol/L (3.4-5.0); Sodium 138 mmol/L (137-145); Total Protein 6.8 g/dL (6.3-8.2)
== END 2025-02-18 09:46 | disposition home or self-care (01) ==
LOC: CHSLAB 09:46
PROVIDERS: PCP Family Medicine; Visit Provider Family Medicine
DX: K80.50 Calculus of bile duct without cholangitis or cholecystitis without obstruction (principal)
CPT/HCPCS: 36415; 76705; 80053; 85025; 86140

== ENCOUNTER 2025-03-26 10:48 | Outpatient (NON) | payer OTHER, SELFPAY ==
[2025-03-26 11:01] LABS: Add Urine Microscopic? YES; Bilirubin Urine 1+ (Negative); Blood Urine 1+ (Negative); Color Urine Yellow (Yellow); Glucose Urine UA Negative (Negative); Ketones Urine 1+ (Negative); Leukocyte Esterase Ur Negative LEU/UL (Negative); Nitrate Urine Negative (Negative); Protein Urine Negative (Negative); Specific Grav Ur 1.025 (1.010-1.020)
[2025-03-26 11:14] LABS: Appearance Urine Cloudy (Clear); Bacteria Urine Trace /hpf; Mucus Urine Moderate /lpf; RBC Urine None seen /hpf (0-2); Squamous Epithelial Cell Urine Many /hpf (Few); WBC Urine 0-3 /hpf (0-3)
--- OUTSIDE RECORDS SUMMARY | 2025-03-26 11:40 | XMS_ITS | Clinical Summary ---
Author Organization [facility] 163 [facility] Address [address] [facility] [address] Care Team Providers Care Requisition Approver Name Role Phone Miscellaneous, Not In File [...] mg total) by mouth daily 30 tablet 5 1 Active Additional Information Patient taking differently:20 mg oralAs needed, Indications: Heartburn, Reported on 10/27/2021 cyanocobalamin (Vitamin B-12) 100 mcg tablet Take 0.5 tablets (50 mcg total) by mouth Active ferrous sulfate 325 mg (65 mg of elemental iron) tablet Take 1 tablet (325 mg total) by mouth Active midodrine (PROAMATINE) 5 mg tablet Take 1 tablet (5 mg total) by mouth 05/16/202 3 Active ondansetron (ZOFRAN) 4 mg tabletIndicatio [...] is not due for a follow-up with project economist until May. We will check pelvic and [...] dysphoria since her fiance was deployed to [facility] for a year. He is in the [...] HM PAP SMEAR WITH HPV 07/28/2021 Normal, BRENNAN [place]. Medical History Medical History Date Comments Covid-19 [...] on file Legal Sex Female 11:14 PM DIRECTOR MEDICAL ECONOMICS Gender Identity Not on file Sexual Orientation Not on file Occupation Industry Job Start Date Job End Date [employer] Not on file Not [...] Comments Blood Pressure 124/78 08/15/2023 10:20 AM DIRECTOR MEDICAL ECONOMICS Pulse 71 06/25/2023 12:48 PM CDT Temperature 36.6 C (97.9 F) 06/25/2023 12:48 PM CDT Respiratory Rate 16 06/25/2023 12:48 PM CDT Oxygen Saturation 100% 06/25/2023 12:48 PM CDT Inhaled Oxygen Concentration - - Weight 89.4 kg (197 lb) 08/15/2023 10:20 AM DIRECTOR MEDICAL ECONOMICS Height 162.6 cm (5' 4) 08/15/2023 10:20 AM DIRECTOR MEDICAL ECONOMICS Body Mass Index 33.81 08/15/2023 10:20 AM DIRECTOR MEDICAL ECONOMICS Plan of Treatment Health Maintenance Due Date [...] has been evaluated with computer assisted technology. Credit Officer Juan Miguel Mcneill Comment: ABC, CT(ASCP) CT screening location: [place] [address] [place], [place] [address] Comment Naomi Mccabe Comment: EXPLANATORY NOTE: The [...] 1 AM CDT 07/29/2021 4:27 AM CDT Amanda Hamlin GLOVE PRESSER LAB CYTOLOGY ORDERABLES [facility] [address] [place] [address] from Last 3 Months or Most Recently Relevant to Health Maintenance Insurance [employer] OPEN ACCESS [facility] Care Teams Requisition Approver Relationship Specialty Start Date End Date Miscellaneous, Not In File PCP - General 06/25/23
--- OUTSIDE RECORDS SUMMARY | 2025-03-26 11:40 | XMS_ITS | Clinical Summary ---
Author Organization [facility] Address [address] [place] [address] Phone Care Team Providers Care Paver Operator Name Role Phone Syed Santos Primary Care Provider Meredith Meng APRN, COLLECTION SYSTEMS ADMINISTRATOR Unavailable Allergies Active Allergy Reactions Criticality Noted [...] depression. Her fiance is deployed to the [place]. We increase the dose of Celexa [...] 8:12 AM CDT Height 160 cm (5' 3) 02/04/2024 8:12 AM CDT Body Mass Index [...] Priority Date/Time Associated Diagnosis Comments PATHOLOGY CYTOLOGY EAP COUNSELOR 07/28/2021 12:00 AM CDT from Last 3 Months or Most Recently Relevant to Health Maintenance Results * PATHOLOGY CYTOLOGY EAP COUNSELOR (07/28/2021 12:00 AM CDT) 07/28/2021 us Provider Scan PATHOLOGY/CYTOLOGY ORDERABLES Fi nal Result SCAN from Last 3 Months or Most Recently Relevant to Health Maintenance Care Teams Paver Operator Relationship Specialty Start Date End Date Syed Santos, PAC [address] [place] [address] PCP - General Physician Piano Technician 11/20/23 Meredith Meng, ATTENDING PSYCHIATRIST, COLLECTION SYSTEMS ADMINISTRATOR [address] [place] [address] Nurse Practitioner Advanced Practice Nurse 02/04/24
--- OUTSIDE RECORDS SUMMARY | 2025-03-26 11:40 | XMS_ITS | Referral Summary ---
Author Organization [facility] 163 [facility] Address [address] [facility] [place] [address] Care Team Providers Care Operating Room Assistant Name Role Phone Miscellaneous, Not In File [...] is not due for a follow-up with lead oracle developer until May. We will check pelvic and [...] dysphoria since her fiance was deployed to [facility] for a year. He is in [...] on file Legal Sex Female 11:14 PM PARADI TENDER Gender Identity Not on file Sexual Orientation Not on file Occupation Industry Job Start Date Job End Date [employer] Not on file Not on file Not on file Last Filed Vital Signs Vital Sign Reading Time Taken Comments Blood Pressure 124/78 08/15/2023 10:20 AM PARADI TENDER Pulse 71 06/25/2023 12:48 PM CDT Temperature 36.6 C (97.9 F) 06/25/2023 12:48 PM CDT Respiratory Rate 16 06/25/2023 12:48 PM CDT Oxygen Saturation 100% 06/25/2023 12:48 PM CDT Inhaled Oxygen Concentration - - Weight 89.4 kg (197 lb) 08/15/2023 10:20 AM PARADI TENDER Height 162.6 cm (5' 4) 08/15/2023 10:20 AM PARADI TENDER Body Mass Index 33.81 08/15/2023 10:20 AM PARADI TENDER Plan of Treatment Not on file Procedures [...] has been evaluated with computer assisted technology. Precast Concrete Ironworker Juan Miguel Mcneill Comment: ABC, CT(ASCP) CT screening location: [place] [address] [address] [id number] Comment Naomi Mccabe Comment: EXPLANATORY NOTE: The [...] CDT 07/29/2021 4:27 AM CDT Amanda Hamlin NP LAB CYTOLOGY ORDERABLES Final Re sult [place] [address] [address] [place] [phone] from Last 3 Months or Most Recently Relevant to Health Maintenance Insurance [employer] OPEN ACCESS [employer] OPEN ACCESS [facility] Care Teams Operating Room Assistant Relationship Specialty Start Date End Date Miscellaneous, Not In File PCP - General 06/25/23
== END 2025-03-26 10:49 | disposition home or self-care (01) ==
LOC: CHSLAB 10:51
PROVIDERS: PCP Family Medicine; Visit Provider Nurse Practitioner Family
DX: R30.0 Dysuria (principal)
CPT/HCPCS: 81001

== ENCOUNTER 2025-05-11 00:23 | Day surgery (SDC) | payer OTHER, SELFPAY ==
[2025-05-04 08:35] VITALS: BMI 35.1
--- NOTE | 2025-05-04 08:43 | PC.NURSE ---
Report to the Outpatient Waiting Room, entrance under the green pavilion located off [address], at time __1030_ on date _05/11/25__. Planned Procedure Time: __1230_.? Time changes happen often and if your time is changed the preop area will call you the afternoon before. - You and your visitor will be asked to self-screen and do not enter if you have any COVID symptoms. Please call surgeon if you need to reschedule. - A mask is optional within the hospital at this time. Patients may have clear liquids (water, carbonated beverages, clear teas, apple juice) until 3 hours prior to surgery with a maximum of 20 ounces. - No food from midnight until time of surgery and no smoking, or chewing tobacco (or any form of nicotine). No chewing gum, candy or mints. - Infants may have breast milk until 4 hours before surgery, infant formula 6 hours prior to surgery. - Children will be allowed to drink immediately following surgery.? If applicable, please bring a bottle or sippy cup to assist with drinking. Juice, water, soda, and popsicles are readily available.? For infants on formula, please bring formula the day of surgery.? Pacifiers are allowed. Take only the following medications with a SIP of water on the morning of surgery: ____CITALOPRAM, XANAX IF NEEDED DO NOT STOP ANY OF YOUR OTHER PRESCRIPTION MEDICATIONS PRIOR TO SURGERY EXCEPT THE FOLLOWING Hold all vitamins and supplements for 3 days per anesthesiologist. Medications to discontinue per physician NONE Date to take last dose Please no make-up, nail russian, hairspray, perfume, deodorant, or body powder the day of surgery.? No jewelry (including any body piercings) or valuables the day of surgery, leave them at home.? Please take a shower or bath the night before, or the morning of, surgery with an antibacterial soap.? Wear comfortable, loose fitting clothing.? Children are encouraged to wear pajamas. - Jewelry must be removed prior to entering the operating room.? Rings and piercings that are not removed may be cut off. - The hospital will not accept responsibility for valuables.? - Please leave all valuables, including medications, at home the day of surgery. If you are going home after surgery, a licensed dump truck driver must drive you home.? - NO public transportation without another adult if you receive anesthesia. - We recommend that an adult stay with you for 24 hours following discharge. - We also recommend that you do not drive, make important decision, drink alcoholic beverages, or take any drugs that were not prescribed by your health care provider for at least 24 hours after your discharge time. For Pediatric surgeries, we recommend two adults accompany the child home. Follow any additional instructions given to you from your surgeon. Telephone instructions given to ___PATIENT___and asked if any additional questions and then verbalized understanding. Patient advised to call surgeon office or pre surgery nurse liaison [phone] if any additional questions.
[2025-05-11] VITALS (7 sets, daily range): BP systolic 104–149; BP diastolic 63–95; PULSE 60–85; RESP 10–16; TEMP 36.4; O2SAT 99–100; BMI 36.1
--- OUTSIDE RECORDS SUMMARY | 2025-05-11 00:25 | XMS_ITS | Clinical Summary ---
Author Organization [facility] [place] [address] [facility] Address [address] [place] [address] Care Team Providers Care Surgical Aide Name Role Phone Miscellaneous, Not In File [...] is not due for a follow-up with bowl topper until May. We will check pelvic and [...] dysphoria since her fiance was deployed to [facility] for a year. He [...] on file Legal Sex Female 11:14 PM IMMIGRATION COORDINATOR Gender Identity Not on file Sexual Orientation Not on file Occupation Industry Job Start Date Job End Date [employer] Not on file Not on [...] Comments Blood Pressure 124/78 08/15/2023 10:20 AM IMMIGRATION COORDINATOR Pulse 71 06/25/2023 12:48 PM CDT Temperature 36.6 C (97.9 F) 06/25/2023 12:48 PM CDT Respiratory Rate 16 06/25/2023 12:48 PM CDT Oxygen Saturation 100% 06/25/2023 12:48 PM CDT Inhaled Oxygen Concentration - - Weight 89.4 kg (197 lb) 08/15/2023 10:20 AM IMMIGRATION COORDINATOR Height 162.6 cm (5' 4) 08/15/2023 10:20 AM IMMIGRATION COORDINATOR Body Mass Index 33.81 08/15/2023 10:20 AM IMMIGRATION COORDINATOR Plan of Treatment Health Maintenance Due Date Last Done Comments Hepatitis C Screening 1995 Varicella Vaccines (1 of 2 - 13+ 2-dose series) 2010 HPV Vaccines (3 - 3-dose series) 12/04/2014 09/11/2014, 05/15/2014 Cervical Cancer Screening 07/28/2022 07/28/2021 Depression Screening 07/28/2022 07/28/2021, 02/04/20 Regular Well Visit/Exam 18-64 07/28/2022 07/28/2021, 02/03/2021 Covid-19 Vaccine ( season) 2024 03/24/2021, 02/24/2021 Influenza Vaccine (#1) 2025 9, 10/17/2015, 07/06/2014 DTaP/Tdap/Td Vaccine (5 - [...] has been evaluated with computer assisted technology. Customer Service Cashier Juan Miguel Mcneill Comment: ABC, CT(ASCP) CT screening location: [place] [facility] [address] [place] [id number] Comment ZALORAKathOlga Lidia Mccabe Comment: EXPLANATORY NOTE: The Pap [...] NP LAB CYTOLOGY ORDERABLES Final Re sult [facility]ino[facility] Mccabe [address] [place] [address] from Last 3 Months or Most Recently Relevant to Health Maintenance Insurance [employer] OPEN ACCESS [employer] OPEN ACCESS [facility] Care Teams Surgical Aide Relationship Specialty Start Date End Date Miscellaneous, Not In File PCP - General 06/25/23
--- OUTSIDE RECORDS SUMMARY | 2025-05-11 00:26 | XMS_ITS | Clinical Summary ---
Author Organization [facility] Address [address] [place] [address] Phone Care Team Providers Care Tenoner Operator Name Role Phone Syed Santos Primary Care Provider Meredith Meng APRN, BRUSHER OPERATOR Unavailable Allergies Active Allergy Reactions Criticality Noted [...] depression. Her fiance is deployed to the [place]. We increase the dose of Celexa [...] 02/24/2021 Pap Smear 07/28/2024 07/28/2021 Influenza Immunization (#1) 06/08/202507/10, 07/14/2019, 10/17/2015, Additional history exists DTaP/Tdap/Td Immunization [...] Priority Date/Time Associated Diagnosis Comments PATHOLOGY CYTOLOGY CAN LABELER 07/28/2021 12:00 AM CDT from Last 3 Months or Most Recently Relevant to Health Maintenance Results * PATHOLOGY CYTOLOGY CAN LABELER (07/28/2021 12:00 AM CDT) 07/28/2021 us Provider Scan PATHOLOGY/CYTOLOGY ORDERABLES Fi nal Result SCAN from Last 3 Months or Most Recently Relevant to Health Maintenance Care Teams Tenoner Operator Relationship Specialty Start Date End Date Syed Santos, PAC [address] [place] [address] PCP - General Physician Project Builder 11/20/23 Meredith Meng, APPLICATION INTEGRATION ENGINEER, BRUSHER OPERATOR [address] [place] [address] Nurse Practitioner Advanced Practice Nurse 02/04/24
--- OUTSIDE RECORDS SUMMARY | 2025-05-11 00:26 | XMS_ITS | Referral Summary ---
Author Organization [facility] [place] 163 [facility] Address [address] [place] [address] Care Team Providers Care Riveter Name Role Phone Miscellaneous, Not In File [...] is not due for a follow-up with commercial field inspector until May. We will check pelvic and [...] depression. Her fiance is deployed to the [facility]. We increase the dose of Celexa [...] dysphoria since her fiance was deployed to [facility] for a year. 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 Gender Identity Not on file Sexual Orientation Not on file Occupation Industry Job Start Date Job End Date [employer] Not on file Not on file Not on file Last Filed Vital Signs Vital Sign Reading Time Taken Comments Blood Pressure 124/78 08/15/2023 10:20 AM TRACK DRESSER Pulse 71 06/25/2023 12:48 PM CDT Temperature 36.6 C (97.9 F) 06/25/2023 12:48 PM CDT Respiratory Rate 16 06/25/2023 12:48 PM CDT Oxygen Saturation 100% 06/25/2023 12:48 PM CDT Inhaled Oxygen Concentration - - Weight 89.4 kg (197 lb) 08/15/2023 10:20 AM TRACK DRESSER Height 162.6 cm (5' 4) 08/15/2023 10:20 AM TRACK DRESSER Body Mass Index 33.81 08/15/2023 10:20 AM TRACK DRESSER Plan of Treatment Not on file Procedures [...] has been evaluated with computer assisted technology. Training Program Developer Juan Miguel Nikos Mccabe Comment: ABC, CT(ASCP) CT screening location: [place] [address] [address] [id number] Comment Naomi Mccabe Comment: EXPLANATORY NOTE: The [...] NP LAB CYTOLOGY ORDERABLES Final Re sult [facility] [address] [place] [address] from Last 3 Months or Most Recently Relevant to Health Maintenance Insurance [employer] OPEN ACCESS [employer] OPEN ACCESS [facility] Care Teams Riveter Relationship Specialty Start Date End Date Miscellaneous, Not In File PCP - General 06/25/23
--- NOTE | 2025-05-11 07:24 | WPDHPUPDATE1 ---
History and Physical Update Update Date/Time: 05/11/25 07:24 History and Physical has been reviewed, including an updated exam of the patient. There are NO changes in the patient's condition. Risks, benefits, and alternatives have been discussed and questions answered. Patient agrees to proceed with procedure.
[2025-05-11] MEDS: ACETAMINOPHEN 500 MG TABLET 1000 MG PO (11:05)
[2025-05-11 11:24] LABS: BEDSIDEPREGUCG Negative (Negative)
--- NOTE | 2025-05-11 11:56 | WPDANESEPPF ---
Anes - Initial Pre Proc Eval Procedure: Operation Date: 05/11/25 12:30 Proposed Procedures p Tonsillectomy And Adenoidectomy - Kenny Verdin MD Date/Time: 05/11/25 11:56 Surgeon: Kenny Verdin MD Pre Op Diagnosis: acute pharyngitis, reccurrent tonsillitis, Patient Data Age: 30 Gender: F Height: 1.6 m Weight: 92.45 kg Last Vital Signs Temp 36.4 C L 05/11/25 10:22 Pulse 60 05/11/25 10:22 Resp 16 05/11/25 10:22 BP 112/63 05/11/25 10:22 Pulse Ox 100 05/11/25 10:22 O2 Del Method Room Air 05/11/25 10:22 Allergies Allergy/AdvReac Type Severity Reaction Status Date / Time NSAIDS (Non-Steroidal Allergy Mild hives Verified 05/11/25 10:40 Anti-Inflamma Home Medications ?Medication ?Instructions ?Recorded ?Confirmed ?Type metoclopramide HCl 10 mg tablet 10 mg PO Q6H PRN nausea and 12/19/24 05/04/25 Rx vomiting #30 tabs alprazolam 0.5 mg tablet 0.5 mg PO BID PRN anxiety #20 tabs 12/30/24 05/11/25 Rx etonogestrel 68 mg subdermal 1 implant subdermal ONCE #1 ea 02/10/25 05/04/25 Rx implant (Nexplanon) phentermine 37.5 mg tablet 18.75 mg (1/2 x 37.5 mg) PO DAILY 02/10/25 05/04/25 Rx #30 tabs citalopram 40 mg tablet See Rx Instructions .Route 02/11/25 05/11/25 Rx .COMPLEX #90 tabs bupropion HCl 300 mg 24 hr tablet, 300 mg PO QAM #90 tabs 03/13/25 05/04/25 Rx extended release dicyclomine 10 mg capsule 10 mg PO TID PRN abdominal pain 04/06/25 05/04/25 Rx #90 caps pantoprazole 40 mg tablet,delayed See Rx Instructions .Route 04/06/25 05/04/25 Rx release .COMPLEX #42 tabs rifaximin 550 mg tablet (Xifaxan) 550 mg PO DAILY #30 tabs 04/06/25 05/04/25 Rx acetaminophen 500 mg capsule 1,000 mg PO Q6H PRN pain 05/04/25 05/04/25 History ondansetron HCl 4 mg tablet 4 mg PO Q8H PRN nausea and vomiting 05/04/25 05/04/25 History Laboratory Tests 05/11/25 10:30 POC Urine HCG, Qual Negative (Negative) Patient hx anesthesia problems: none Family hx anesthesia problems: none Results Review: All pre-operative results and documents have been reviewed as part of the pre-operative evaluation. [facility] Past Medical History Medical History BRBPR (bright red blood per rectum) Rectal pain Nausea & vomiting Alternating constipation and diarrhea IBS (irritable bowel syndrome) Surgical History Surgical History [place] teeth extracted Family History Family History Grandparent Diabetes mellitus Other Cerebrovascular accident Coronary artery disease Social History Social History Smoking status: Never smoker Tobacco type: e-cigarettes/vaping Additional smoking assessment comments: VAPING DAILY FOR 2 YRS Alcohol intake: current Alcohol use details: 3 PER MONTH Substance use: never Living arrangements: with family Alvin - [place] Final PreProcedure Day of Procedure 05/11/25 11:56 Patient weight: obese Heart: regular rate and rhythm Lungs: clear to auscultation Airway: Mallampati scale class II Neurological: alert and oriented Last oral intake: >/= 8 hours ASA classification: III Emergent: no Anesthetic plan: proceed Anesthesia type and monitoring: general ETT and standard monitoring Results Review: All pre-operative results and documents have been reviewed as part of the pre-operative evaluation. Informed Consent: The patient's anesthetic plan and its attendant risks and benefits were discussed with the patient/family/POA. Questions were solicited and answers provided to the satisfaction of the patient/family/POA.
--- NOTE | 2025-05-11 12:17 | S_PTH ---
PATIENT: Kathy Mallory LOC: [facility] [place] U#:[id number] AGE/SX: 30/F ROOM: RE05/11/[address]: Kenny Verdin MD : 1995 BED: DIS: 05/11/2025 SPEC #: [id number] RECD: 05/11/25 13:14 STATUS: KWABENA REGreer #: [id number] FITO: 05/11/25 12:[address]: Kenny Verdin DEPT: [facility] Surgical RECD BY: Lauren Lantigua ENTERED: 05/11/25 13:15 SP TYPE: Surgical OTHR DR: Lavelle Chávez DO Tissues: A - Tonsils Procedures: Gross and Microscopic Level 2
[2025-05-11] MEDS: LACTATED RINGERS 1,000 ML 30 ML IV CONT ×2 (12:47→13:00)
--- NOTE | 2025-05-11 13:11 | P.OP_ITS ---
Procedure Note - Detailed Date of Procedure 05/11/25 Pre-op Diagnosis acute pharyngitis, reccurrent tonsillitis, Post-op Diagnosis Same Procedure Performed Tonsillectomy Surgeon Kenny Verdin MD Anesthesia General Indications See above Findings Really endophytic tonsils there was so scarred I was unable to remove about 5% excuse me of each side but I did go blade that down says that tissue likely slough off. Minimal bleeding 3 cc. No adenoids. No complications. Description of Procedure Patient identified consent verified the peripheral ear. Patient might the operating. Time-out performed. General anesthesia induced endotracheal tube secured airway. Patient prepped draped position procedure confirmed 2nd time- out performed. Patient McIvor mouth gag inserted to reveal tonsils described above. Tonsils removed bilaterally in the extracapsular plane using Coblator media medium settings. Between tonsils McIvor mouth gag was lowered reopened allow blood flow to return to the tongue. After the tonsils were out Anesthesia Valsalva to ensure no further bleeding. Red rubber catheters were then inserted transnasally suspending the soft palate anteriorly. Adenoids viewed no adenoids. Rubber catheters removed. McIvor mouth gag removed cured. Care the patient was given Anesthesiology I performed all dictated portions procedure no complications patient taken to PACU. Estimated Blood Loss 3 Drains No Packing No Pathology Yes Complications No immediate complications Condition Stable Disposition PACU [facility] Billing Surgery - Charge Forward: Surgery Billing
[2025-05-11] MEDS: oxyCODONE (*CRX) 5 MG/5 ML ORAL SOLN IR PO (13:47)
== END 2025-05-11 14:11 | disposition home or self-care (01) ==
PROVIDERS: PCP Family Medicine; Visit Provider Otolaryngology
PROC: (CPT 42826; principal; 2025-05-11 12:30)
DX: J35.01 Chronic tonsillitis (principal); R06.83 Snoring; G89.18 Other acute postprocedural pain; K58.9 Irritable bowel syndrome, unspecified; F17.290 Nicotine dependence, other tobacco product, uncomplicated; E66.9 Obesity, unspecified; Z68.36 Body mass index [BMI] 36.0-36.9, adult; Z98.890 Other specified postprocedural states; Z82.49 Family history of ischemic heart disease and other diseases of the circulatory system
CPT/HCPCS: 42826; 88302; A9270; J0330; J1100; J2250; J2405; J2704; J3010; J7040; J7120

== ENCOUNTER 2025-05-15 16:50 | Emergency (ER) | payer OTHER, SELFPAY ==
[2025-05-15 16:50] VITALS: BP 140/78; PULSE 75; RESP 16; TEMP 36.8; O2SAT 100
--- OUTSIDE RECORDS SUMMARY | 2025-05-15 16:51 | XMS_ITS | Clinical Summary ---
Author Organization [facility] Address [address] [place] [address] Phone Care Team Providers Care Dobby Looms Pegger Name Role Phone Syed Santos Primary Care Provider Meredith Meng APRN, MOTOR ASSEMBLY SUPERVISOR Unavailable Allergies Active Allergy Reactions Criticality Noted [...] depression. Her fiance is deployed to the [place]. We increase the dose of Celexa [...] Priority Date/Time Associated Diagnosis Comments PATHOLOGY CYTOLOGY TOP CARRIER 07/28/2021 12:00 AM CDT from Last 3 Months or Most Recently Relevant to Health Maintenance Results * PATHOLOGY CYTOLOGY TOP CARRIER (07/28/2021 12:00 AM CDT) 07/28/2021 us Provider Scan PATHOLOGY/CYTOLOGY ORDERABLES Fi nal Result SCAN from Last 3 Months or Most Recently Relevant to Health Maintenance Care Teams Dobby Looms Pegger Relationship Specialty Start Date End Date Syed Santos, PAC [address] [place] [address] PCP - General Physician Registry Np 11/20/23 Meredith Meng, COMMUNITY OUTREACH MANAGER, MOTOR ASSEMBLY SUPERVISOR [address] [place] [address] Nurse Practitioner Advanced Practice Nurse 02/04/24
--- OUTSIDE RECORDS SUMMARY | 2025-05-15 16:51 | XMS_ITS | Clinical Summary ---
Author Organization [facility] [place] 163 [facility] Address [address] [place] [address] Care Team Providers Care Air Sampler Name Role Phone Miscellaneous, Not In File [...] is not due for a follow-up with hospice aide until May. We will check pelvic and [...] depression. Her fiance is deployed to the [facility]. We increase the dose of Celexa [...] since her fiance was deployed to [facility] for a year. 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 Gender Identity Not on file Sexual Orientation Not on file Occupation Industry Job Start Date Job End Date [employer] Not on file Not [...] Comments Blood Pressure 124/78 08/15/2023 10:20 AM ARCHITECTURAL ENGINEER Pulse 71 06/25/2023 12:48 PM CDT Temperature 36.6 C (97.9 F) 06/25/2023 12:48 PM CDT Respiratory Rate 16 06/25/2023 12:48 PM CDT Oxygen Saturation 100% 06/25/2023 12:48 PM CDT Inhaled Oxygen Concentration - - Weight 89.4 kg (197 lb) 08/15/2023 10:20 AM ARCHITECTURAL ENGINEER Height 162.6 cm (5' 4) 08/15/2023 10:20 AM ARCHITECTURAL ENGINEER Body Mass Index 33.81 08/15/2023 10:20 AM ARCHITECTURAL ENGINEER Plan of Treatment Health Maintenance Due Date [...] has been evaluated with computer assisted technology. Tech Brazer Tester Juan Miguel Mcneill Comment: ABC, CT(ASCP) CT screening [place]: [place] [facility] [facility] [address] [place] [phone] Comment Sava[employer] TechnologiesKathOlga Lidia Mccabe Comment: EXPLANATORY NOTE: The [...] ORDERABLES Final Re sult NAOMI [address]ino[address] Mccabe [address] [place] [address] from Last 3 Months or Most Recently Relevant to Health Maintenance Insurance [employer] OPEN ACCESS [employer] OPEN ACCESS [facility] Care Teams Air Sampler Relationship Specialty Start Date End Date Miscellaneous, Not In File PCP - General 06/25/23
--- NOTE | 2025-05-15 16:54 | ED_ITS ---
HPI - Nausea/Vomiting/Diarrhea General Chief complaint: Nausea/Vomiting/Diarrhea Stated complaint: vomiting Time Seen by Provider: 05/15/25 16:54 Source: patient Mode of arrival: ambulatory Limitations: no limitations History of Present Illness HPI Narrative: patient is a 30-year-old female that had a tonsillectomy in the past 4 days here with some dehydration and feeling weak. She has not been able to tolerate soft diet that she was post to be taking after the surgery. Fluids have been minimal. She has decreased urine output. associated nausea and vomiting. MD elicited complaint: nausea and vomiting Pertinent past history: other ( Negative) Onset (ago): day(s) (4) Description of vomiting: watery Description of diarrhea: other ( None) Associated nausea: Yes Associated abdominal pain: No Location of pain: none Radiation: does not radiate Pain consistency: other ( sore throat only post tonsillectomy which is minimal; no bleeding) Severity: mild Pain scale (0-10): 1 Quality: dull Exacerbating factors: eating Relieving factors: none Context: recent surgery/procedure ( tonsillectomy) Associated symptoms: loss of appetite, nausea/vomiting, weakness and fatigue Treatment prior to arrival: analgesics ( oxycodone from primary doctor) Related Data Home Medications ?Medication ?Instructions ?Recorded ?Confirmed ?Last Taken ?Type acetaminophen 500 mg capsule 1,000 mg PO Q6H PRN pain 05/04/25 05/04/25 Unknown History ondansetron HCl 4 mg tablet 4 mg PO Q8H PRN nausea and vomiting 05/04/25 05/04/25 Unknown History Allergies Allergy/AdvReac Type Severity Reaction Status Date / Time NSAIDS (Non-Steroidal Allergy Mild hives Verified 05/15/25 16:52 Anti-Inflamma Review of Systems 2 Review of Systems: All systems reviewed & are unremarkable except as noted in HPI and below Constitutional: Constitutional: Reports no additional constitutional complaints Eyes: Eyes: Reports no additional eye complaints ENT: Reports system reviewed and no additional complaints, except as documented Cardiovascular: Cardiovascular: Reports no additional cardiovascular complaints Respiratory: Respiratory: Reports no additional respiratory complaints Gastrointestinal: Gastrointestinal: Reports no additional gastrointestinal complaints Genitourinary: Genitourinary: Reports no additional female genitourinary complaints Musculoskeletal: Musculoskeletal: Reports no additional musculoskeletal complaints Integumentary/Breasts: Skin/Breast: Reports system reviewed and no additional complaints, except as docu Neurologic: Reports system reviewed and no additional complaints, except as documented Psychiatric: Psychiatric: Reports no additional psychiatric complaints Endocrine: Endocrine: Reports no additional endocrine complaints Hematologic/Lymphatic: Hematologic/Lymphatic: Reports no additional hematologic/lymphatic complaints Allergic/Immunologic: Allergic/Immunologic: Reports no additional allergic/immunologic complaints PMFSH Past Medical History Medical History BRBPR (bright red blood per rectum) Rectal pain Nausea & vomiting Alternating constipation and diarrhea IBS (irritable bowel syndrome) Surgical History Surgical History [place] teeth extracted Family History Family History Grandparent Diabetes mellitus Other Cerebrovascular accident Coronary artery disease Social History Social History Smoking status: Never smoker Tobacco type: e-cigarettes/vaping Additional smoking assessment comments: VAPING DAILY FOR 2 YRS Alcohol intake: current Alcohol use details: 3 PER MONTH Substance use: never Living arrangements: with family Exam 2 Const: General: healthy appearing Nutritional Appearance: well nourished Orientation/consciousness: patient oriented x3 Limitations: no limitations Other: patient looks tired and slightly pale HENMT: Head: normal to inspection Ears: external ears normal F bree/Nose/Sinus: Normal external nose present Throat: posterior oropharynx abnormal Other: posterior oropharynx has scarring at the tonsils and appearance of typical post tonsillectomy without signs of infection or abnormality Eyes: Conjunctivae: conjunctivae normal Cornea: corneas normal Pupils: E qual, round and reactive pupils present Neck: Neck: normal visual inspection Chest: Chest palpation & inspection: normal inspection of the chest Resp: Effort & Inspection: normal respiratory effort and not labored A uscultation: clear to auscultation bilaterally and no crackles Cardio: Rate: regular rate Rhythm: regular rhythm Heart sounds: no murmurs GI: Inspection: non-distended GI Palp: Yes Soft to palpation and No Tenderness to palpation present (GI) Auscultation: normal bowel sounds : General: Yes bladder normal to palpation Back/Spine/Pelvis: Back: no CVA tenderness Skin: General skin exam: normal color Rashes: no rashes Wounds: no wounds Neuro: General: patient oriented x3 Cranial nerves: Yes Nystagmus not present Speech: normal speech Extrem: General: normal to inspection Psych: Mental Status: mental status grossly normal Affect: normal affect Attitude: cooperative Course Vital Signs Vital signs: Vital Signs Temperature 36.8 C 05/15/25 16:50 Pulse Rate 75 05/15/25 16:50 Respiratory Rate 16 05/15/25 16:50 Blood Pressure 140/78 05/15/25 16:50 Pulse Oximetry 100 05/15/25 16:50 Oxygen Delivery Room Air 05/15/25 16:50 Temperature 36.8 C 05/15/25 16:50 Pulse Rate 75 05/15/25 16:50 Respiratory Rate 16 05/15/25 16:50 Blood Pressure 140/78 05/15/25 16:50 Pulse Oximetry 100 05/15/25 16:50 Oxygen Delivery Room Air 05/15/25 16:50 MDM - Nausea/Vomiting/Diarrhea MDM Narrative Medical decision making narrative: patient is a 30-year-old female with post tonsillectomy weakness and dehydration. We will do IV fluids and check some basic labs and urine. James. Lab Data Attestation: I reviewed the patient's lab results. 05/15/25 17:05 05/15/25 17:05 Labs: Lab Results 05/15/25 Range/Units 17:05 WBC 10.8 (4.8-10.8) K/mm3 RBC 5.35 (4.20-5.40) M/mm3 Hgb 13.2 (12.0-15.0) g/dL Hct 41.7 (35.0-49.0) % MCV 77.9 L (78.0-102.0) fL MCH 24.7 L (27.0-31.0) pg MCHC 31.7 L (32-36) g/dL RDW 13.5 (11.6-14.4) % Plt Count 394 (150-420) K/mm3 MPV 9.6 (9.2-11.8) fl Immature Gran % (Auto) 0.4 H (0.0-0.0) % Neut % (Auto) 74.9 H (50.0-70.0) % Lymph % (Auto) 17.2 L (18.0-42.0) % Dundy % (Auto) 5.8 (2.0-11.0) % Eos % (Auto) 1.3 (1.0-6.0) % Baso % (Auto) 0.4 (0.0-1.0) % Lymph # (Auto) 1.85 (1.10-4.50) K/mm3 Dundy # (Auto) 0.62 (0.10-0.90) K/mm3 Eos # (Auto) 0.14 (0.02-0.50) K/mm3 Baso # (Auto) 0.04 (0.00-0.10) K/mm3 Abs Immat Gran (auto) 0.04 H (0.00-0.00) K/mm3 Absolute Neuts (auto) 8.07 H (1.70-7.20) K/mm3 Absolute Nucleated RBC 0.00 (0.00-0.00) K/mm3 Nucleated RBC % 0.0 (0-0.0) % Sodium 140 (137-145) mmol/L Potassium 4.1 (3.4-5.0) mmol/L Chloride 106 (98-107) mmol/L Carbon Dioxide 23 (22-30) mmol/L Anion Gap 11 (4-12) mmol/L BUN 9 (7-17) mg/dL Creatinine 0.81 (0.7-1.0) mg/dL Estim Creat Clear Calc 95 ml/min Estimated GFR > 60 (59 - ) Glucose 100 (65-110) mg/dL Calculated Osmolality 288 (285-295) mOsm/kg Calcium 9.6 (8.4-10.2) mg/dL Total Bilirubin 0.9 (0.2-1.3) mg/dL AST 25 (14-36) U/L ALT 24 (6-35) U/L Alkaline Phosphatase 71 (38-126) U/L Total Protein 8.1 (6.3-8.2) g/dL Albumin 4.6 (3.5-5.1) g/dL Urine Color Yellow (Yellow) Urine Appearance Clear (Clear) Urine pH 5.5 (5.0-8.0) Ur Specific [place] >= 1.030 H (1.010-1.020) Urine Protein Trace H (Negative) Urine Glucose (UA) Negative (Negative) Urine Ketones 3+ H (Negative) Ur Blood (Man) Negative (Negative) Urine Nitrate Negative (Negative) Urine Bilirubin 2+ H (Negative) Urine Urobilinogen 1.0 (0.2-1.0) mg/dL Leukocyte Esterase Rfl Negative (Negative) BRYAN/UL Urine RBC 0-2 (0-2) /hpf Urine WBC 0-3 (0-3) /hpf Ur Squamous Epith Cells Few (Few) /hpf Urine Bacteria 1+ H (None) /hpf Urine Test Negative Discharge Plan Discharge Clinical Impression: Dehydration, Weakness Patient Disposition: Home Condition: Improved Instructions: Dehydration (ED) Patient Language: Khmer Prescriptions: New ondansetron 4 mg tablet,disintegrating 4 mg PO Q6H PRN (Reason: nausea and vomiting) Qty: 20 0RF No Action phentermine 37.5 mg tablet 18.75 mg PO DAILY Qty: 30 2RF Rx Instructions: must administer 30 minutes before or 1-2 hours after breakfast Nexplanon 68 mg implant 1 implant subdermal ONCE Qty: 1 0RF Rx Instructions: as a single dose Lot- [id number] 2027-03 [facility] [place]- 07641-010-55 STEPH/AW acetaminophen 500 mg capsule 1,000 mg PO Q6H PRN (Reason: pain) ondansetron HCl 4 mg tablet 4 mg PO Q8H PRN (Reason: nausea and vomiting) oxycodone 5 mg tablet 5 mg PO Q8H PRN (Reason: pain) Qty: 21 0RF metoclopramide HCl 10 mg tablet 10 mg PO Q6H PRN (Reason: nausea and vomiting) Qty: 30 0RF alprazolam 0.5 mg tablet 0.5 mg PO BID PRN (Reason: anxiety) Qty: 20 0RF citalopram 40 mg tablet See Rx Instructions .ROUTE .COMPLEX Qty: 90 2RF Dose Instruction: TAKE 1 TABLET BY MOUTH EVERY DAY Rx Instructions: TAKE 1 TABLET BY MOUTH EVERY DAY bupropion HCl 300 mg tablet extended release 24 hr 300 mg PO QAM Qty: 90 0RF Xifaxan 550 mg tablet 550 mg PO DAILY Qty: 30 0RF pantoprazole 40 mg tablet,delayed release (DR/EC) See Rx Instructions .ROUTE .COMPLEX Qty: 42 0RF Dose Instruction: TAKE 1 TABLET BY MOUTH EVERY MORNING Rx Instructions: TAKE 1 TABLET BY MOUTH EVERY MORNING dicyclomine 10 mg capsule 10 mg PO TID PRN (Reason: abdominal pain) Qty: 90 5RF Follow-up/Referrals: Lavelle Chávez DO [Primary Care Provider] - Time of Disposition: 18:20
[2025-05-15] MEDS: SODIUM CHLORIDE 0.9% IV 1,000 ML 999 ML IV CONT (17:05)
[2025-05-15] MEDS: ONDANSETRON INJ 4 MG/2 ML VIAL IV PUSH (17:06)
[2025-05-15 17:11] LABS: Hematocrit 41.7 % (35.0-49.0); Hemoglobin 13.2 g/dL (12.0-15.0); Immature Granulocyte Percent A 0.4 % (0.0-0.0); Lymphocytes Absolute Auto 1.85 K/mm3 (1.10-4.50); Mean Corpuscular HGB Conc 31.7 g/dL (32-36); Mean Corpuscular Hemoglobin 24.7 pg (27.0-31.0); Mean Corpuscular Volume 77.9 fL (78.0-102.0); Nucleated Red Blood Cells Absolute Auto 0.00 K/mm3 (0.00-0.00); Nucleated Red Blood Cells Perc 0.0 % (0-0.0); Platelet Count Result 394 K/mm3 (150-420); Red Blood Count 5.35 M/mm3 (4.20-5.40); White Blood Count 10.8 K/mm3 (4.8-10.8)
[2025-05-15 17:14] LABS: Add Urine Microscopic? YES; Appearance Urine Clear (Clear); Glucose Urine UA Negative (Negative); Leukocyte Esterase Ur Negative LEU/UL (Negative); Nitrate Urine Negative (Negative); Specific Grav Ur >= 1.030 (1.010-1.020)
[2025-05-15 17:21] LABS: Pregnancy On Board Control Positive
[2025-05-15 17:24] LABS: Alanine Aminotransferase 24 U/L (6-35); Albumin Level 4.6 g/dL (3.5-5.1); Alkaline Phosphatase 71 U/L (38-126); Anion Gap 11 mmol/L (4-12); Aspartate Amino Transferase 25 U/L (14-36); Bilirubin,Total 0.9 mg/dL (0.2-1.3); Blood Urea Nitrogen 9 mg/dL (7-17); Calcium 9.6 mg/dL (8.4-10.2); Carbon Dioxide 23 mmol/L (22-30); Chloride 106 mmol/L (98-107); Estimated CRCL calculation 95 ml/min; Estimated Glomerular Filt Rate > 60; Glucose 100 mg/dL (65-110); Osmolality Calculated 288 mOsm/kg (285-295); Potassium 4.1 mmol/L (3.4-5.0); Sodium 140 mmol/L (137-145); Total Protein 8.1 g/dL (6.3-8.2)
[2025-05-15 17:30] VITALS: BP 140/78; PULSE 62; RESP 17; O2SAT 98
--- OUTSIDE RECORDS SUMMARY | 2025-05-15 17:30 | XMS_ITS | Clinical Summary ---
Author Organization [facility] [place] [address] [facility] Address [address] [place] [address] Care Team Providers Care Photographer Scientific Name Role Phone Miscellaneous, Not In File [...] is not due for a follow-up with daycare director until May. We will check pelvic and [...] depression. Her fiance is deployed to the [facility]. We increase the dose of Celexa from [...] dysphoria since her fiance was deployed to [facility] for a year. He is in the [...] on file Legal Sex Female 11:14 PM STUDENT LIAISON OFFICER Gender Identity Not on file Sexual Orientation Not on file Occupation Industry Job Start Date Job End Date [employer] Not on file Not on [...] Comments Blood Pressure 124/78 08/15/2023 10:20 AM STUDENT LIAISON OFFICER Pulse 71 06/25/2023 12:48 PM CDT Temperature 36.6 C (97.9 F) 06/25/2023 12:48 PM CDT Respiratory Rate 16 06/25/2023 12:48 PM CDT Oxygen Saturation 100% 06/25/2023 12:48 PM CDT Inhaled Oxygen Concentration - - Weight 89.4 kg (197 lb) 08/15/2023 10:20 AM STUDENT LIAISON OFFICER Height 162.6 cm (5' 4) 08/15/2023 10:20 AM STUDENT LIAISON OFFICER Body Mass Index 33.81 08/15/2023 10:20 AM STUDENT LIAISON OFFICER Plan of Treatment Health Maintenance Due Date [...] has been evaluated with computer assisted technology. Battery Assembler Plastic Juan Miguel Mcneill Comment: ABC, CT(ASCP) CT screening location: [facility] [facility] Administration [address] [address] [id number] Comment CarCareKioskKathOlga Lidia Mccabe Comment: EXPLANATORY NOTE: The Pap [...] ORDERABLES Final Re sult NAOMI PinoSt Mccabe [id number] [place] [address] from Last 3 Months or Most Recently Relevant to Health Maintenance Insurance [employer] OPEN ACCESS [facility] OPEN ACCESS [facility] Care Teams Photographer Scientific Relationship Specialty Start Date End Date Miscellaneous, Not In File PCP - General 06/25/23
--- OUTSIDE RECORDS SUMMARY | 2025-05-15 17:30 | XMS_ITS | Clinical Summary ---
Author Organization [facility] Address [address] [place] [address] Phone Care Team Providers Care Needle Punch Machine Operator Helper Name Role Phone Syed Santos Primary Care Provider Meredith Meng APRN, FLEET SERVICE CLERK Unavailable Allergies Active Allergy Reactions Criticality Noted [...] depression. Her fiance is deployed to the [employer] [place]. We increase the dose of Celexa [...] Priority Date/Time Associated Diagnosis Comments PATHOLOGY CYTOLOGY TATTOO ARTIST 07/28/2021 12:00 AM CDT from Last 3 Months or Most Recently Relevant to Health Maintenance Results * PATHOLOGY CYTOLOGY TATTOO ARTIST (07/28/2021 12:00 AM CDT) 07/28/2021 us Provider Scan PATHOLOGY/CYTOLOGY ORDERABLES Fi nal Result SCAN from Last 3 Months or Most Recently Relevant to Health Maintenance Care Teams Needle Punch Machine Operator Helper Relationship Specialty Start Date End Date Syed Santos, PAC [address] [place] [address] PCP - General Physician Software Product Manager 11/20/23 Meredith Meng, AUTOMATIC CLIPPER AND STRIPPER, FLEET SERVICE CLERK [address] [place] [address] Nurse Practitioner Advanced Practice Nurse 02/04/24
[2025-05-15 18:25] VITALS: BP 128/71; PULSE 60; RESP 17; TEMP 36.8; O2SAT 98
== END 2025-05-15 18:25 | disposition home or self-care (01) ==
PROVIDERS: Emergency Provider Emergency Medicine; PCP Family Medicine
DX: E86.0 Dehydration (principal); R53.1 Weakness; Z79.891 Long term (current) use of opiate analgesic
CPT/HCPCS: 36415; 80053; 81001; 81025; 85025; 96361; 96374; 99284; J2405; J7030

== ENCOUNTER 2025-06-24 12:16 | Outpatient (CLI) | payer OTHER, SELFPAY ==
--- OUTSIDE RECORDS SUMMARY | 2025-06-24 12:25 | XMS_ITS | Clinical Summary ---
Author Organization [facility] [place] 163 [facility] Address [address] [place] [address] Care Team Providers Care Multi Needle Machine Operator Name Role Phone Miscellaneous, Not [...] is not due for a follow-up with machine quilt stuffer until May. We will check pelvic and [...] dysphoria since her fiance was deployed to [facility] for a year. He is [...] on file Legal Sex Female 11:14 PM PHOTOGRAPHIC PLATE MAKER Gender Identity Not on file Sexual Orientation Not on file Occupation Industry Job Start Date Job End Date [employer] Not on file Not on file [...] Comments Blood Pressure 124/78 08/15/2023 10:20 AM PHOTOGRAPHIC PLATE MAKER Pulse 71 06/25/2023 12:48 PM CDT Temperature 36.6 C (97.9 F) 06/25/2023 12:48 PM CDT Respiratory Rate 16 06/25/2023 12:48 PM CDT Oxygen Saturation 100% 06/25/2023 12:48 PM CDT Inhaled Oxygen Concentration - - Weight 89.4 kg (197 lb) 08/15/2023 10:20 AM PHOTOGRAPHIC PLATE MAKER Height 162.6 cm (5' 4) 08/15/2023 10:20 AM PHOTOGRAPHIC PLATE MAKER Body Mass Index 33.81 08/15/2023 10:20 AM PHOTOGRAPHIC PLATE MAKER Plan of Treatment Health Maintenance Due Date Last Done Comments Hepatitis C Screening 1997 Varicella Vaccines (1 of 2 - 13+ 2-dose series) 2010 HPV Vaccines (3 - 3-dose series) 12/04/2014 09/11/2014, 05/15/2014 Cervical Cancer Screening 07/28/2022 07/28/2021 Depression Screening 07/28/2022 07/28/2021, 02/04/20 Regular Well Visit/Exam 18-64 07/28/2022 07/28/2021, 02/03/2021 Covid-19 Vaccine (3 - season) 2025 03/24/2021, 02/24/2021 Influenza Vaccine (#1) 2025 9, [...] has been evaluated with computer assisted technology. Poiser Balance Juan Miguel Mcneill Comment: ABC, CT(ASCP) CT screening location: [facility] Administration [address] [address] [id number] Comment Wutsat SystemsKathOlga Lidia Mccabe Comment: EXPLANATORY NOTE: The Pap [...] ORDERABLES Final Re sult NAOMI PinoSt Mccabe [address] [place] [address] from Last 3 Months or Most Recently Relevant to Health Maintenance Insurance [employer] OPEN ACCESS HEALTHLINK OPEN ACCESS [facility] Care Teams Multi Needle Machine Operator Relationship Specialty Start Date End Date Miscellaneous, Not In File PCP - General 06/25/23
--- OUTSIDE RECORDS SUMMARY | 2025-06-24 12:25 | XMS_ITS | Clinical Summary ---
Author Organization [facility] Address [address] [place] [address] Phone Care Team Providers Care Truss Puller Helper Name Role Phone Syed Santos Primary Care Provider Meredith Meng APRN, CHEMICAL APPLICATOR Unavailable Allergies Active Allergy Reactions Criticality Noted [...] depression. Her fiance is deployed to the [employer] [place]. We increase the dose of Celexa [...] (3 - 3-dose series) 12/04/2014 09/11/2014, 05/15/2014 Pap Smear 07/28/2024 07/28/2021 Influenza Immunization (#1) 06/08/202507/10, 07/14/2019, 10/17/2015, Additional history exists SARS-COV-2 Immunization ( - 2024- season) 2025 03/24/2021, 02/24/2021 DTaP/Tdap/Td Immunization (5 - Td [...] Priority Date/Time Associated Diagnosis Comments PATHOLOGY CYTOLOGY TRANSPORT PILOT 07/28/2021 12:00 AM CDT from Last 3 Months or Most Recently Relevant to Health Maintenance Results * PATHOLOGY CYTOLOGY TRANSPORT PILOT (07/28/2021 12:00 AM CDT) 07/28/2021 us Provider Scan PATHOLOGY/CYTOLOGY ORDERABLES Fi nal Result SCAN from Last 3 Months or Most Recently Relevant to Health Maintenance Care Teams Truss Puller Helper Relationship Specialty Start Date End Date Syed Santos, PAC [address] [place] [address] PCP - General Physician Hydrometer Finisher 11/20/23 Meredith Meng, HARVESTING MANAGER, CHEMICAL APPLICATOR [address] [place] [address] Nurse Practitioner Advanced Practice Nurse 02/04/24
[2025-06-24 12:41] LABS: Hematocrit 38.2 % (35.0-49.0); Hemoglobin 12.0 g/dL (12.0-15.0); Immature Granulocyte Percent A 0.2 % (0.0-0.0); Lymphocytes Absolute Auto 2.14 K/mm3 (1.10-4.50); Mean Corpuscular HGB Conc 31.4 g/dL (32-36); Mean Corpuscular Hemoglobin 25.2 pg (27.0-31.0); Mean Corpuscular Volume 80.1 fL (78.0-102.0); Nucleated Red Blood Cells Absolute Auto 0.00 K/mm3 (0.00-0.00); Nucleated Red Blood Cells Perc 0.0 % (0-0.0); Platelet Count Result 337 K/mm3 (150-420); Red Blood Count 4.77 M/mm3 (4.20-5.40); White Blood Count 9.1 K/mm3 (4.8-10.8)
[2025-06-24 13:16] LABS: Add Urine Microscopic? YES; Appearance Urine Clear (Clear); Glucose Urine UA Negative (Negative); Leukocyte Esterase Ur Negative LEU/UL (Negative); Nitrate Urine Negative (Negative); Specific Grav Ur 1.010 (1.010-1.020)
[2025-06-24 13:25] LABS: Iron 45 ug/dL (37-170)
[2025-06-24 13:31] LABS: Alanine Aminotransferase 15 U/L (6-35); Albumin Level 4.4 g/dL (3.5-5.1); Alkaline Phosphatase 52 U/L (38-126); Amylase 182 U/L (30-110); Anion Gap 10 mmol/L (4-12); Aspartate Amino Transferase 22 U/L (14-36); Bilirubin,Total 0.7 mg/dL (0.2-1.3); Blood Urea Nitrogen 9 mg/dL (7-17); CRP 0.7 mg/dL (<1.0); Calcium 9.6 mg/dL (8.4-10.2); Carbon Dioxide 24 mmol/L (22-30); Chloride 106 mmol/L (98-107); Estimated Glomerular Filt Rate > 60; Glucose 87 mg/dL (65-110); Lipase 1303 U/L (23-300); Magnesium 2.1 mg/dL (1.6-2.3); Osmolality Calculated 287 mOsm/kg (285-295); Potassium 4.3 mmol/L (3.4-5.0); Sodium 140 mmol/L (137-145); Total Protein 8.1 g/dL (6.3-8.2)
[2025-06-24 13:35] LABS: Percent Iron Saturation 11 % (20-50)
[2025-06-24 13:35] LABS: Toxigenic C. Diff POSITIVE (NEGATIVE)
[2025-06-24 13:46] LABS: Free T4 Free Thyroxine 0.93 ng/dL (0.78-2.19)
[2025-06-24 13:59] LABS: Thyroid Stimulating Hormone 1.270 uIU/mL (0.465-4.680)
[2025-06-24 14:19] LABS: Vitamin B12 359.0 pg/mL (239-931)
[2025-06-25 11:24] LABS: Total Triiodothyronine (T3) 1.01
[2025-06-26 14:08] LABS: Pancreatic Elastase, Fecal >800 (>200)
== END 2025-06-24 12:17 | disposition home or self-care (01) ==
LOC: CHSLAB 12:17
PROVIDERS: PCP Nurse Practitioner Family; Visit Provider Nurse Practitioner Family
DX: R19.7 Diarrhea, unspecified (principal); M79.672 Pain in left foot; R11.2 Nausea with vomiting, unspecified; Z79.899 Other long term (current) drug therapy; I10 Essential (primary) hypertension; E53.8 Deficiency of other specified B group vitamins
CPT/HCPCS: 36415; 80053; 81001; 82150; 82306; 82607; 82653; 83540; 83550; 83690; 83735; 84439; 84443; 84480; 85025; 86140; 87493

== ENCOUNTER 2025-06-25 09:03 | Emergency (ER) | payer OTHER, SELFPAY ==
--- NOTE | ~2025-06-25 | US_ITS ---
ULTRASOUND ABDOMEN LIMITED (RIGHT UPPER QUADRANT) Clinical History: right upper quadrant abdominal pain Comparison: Ultrasound 02/18/2025 Technique: Right upper quadrant sonography Findings: Liver: Normal size. Normal echotexture. No intrahepatic biliary ductal dilatation. Normal hepatopedal flow main portal vein. Common Duct: Normal caliber. 3 mm. Gallbladder: No stones. No wall thickening. No pericholecystic fluid. Pancreas: Largely obscured by bowel gas. 6 Retrohepatic IVC: Unremarkable. IMPRESSION: 1. No acute findings. Reviewed, dictated and finalized at location R. IMPRESSION: 1. No acute findings.
--- NOTE | ~2025-06-25 | CT_ITS ---
EXAMINATION: CT abdomen pelvis w con DATE: 06/25/2025 10:08 INDICATION: Abdominal pain. TECHNIQUE: Computed tomography (CT) of the abdomen and pelvis was performed with 100 mL Omnipaque 350 intravenous contrast. Automated exposure control and iterative reconstruction technique were employed. The dose-length product was 1065.68 mGy-cm. COMPARISON: CT abdomen and pelvis 07/31/2024 FINDINGS: The visualized portions of the lung bases demonstrate mild atelectasis. No pleural effusion. The heart size is normal. No pericardial effusion. The liver demonstrates focal steatosis adjacent to the falciform ligament. The gallbladder, spleen, pancreas, adrenal glands, and kidneys are normal. There are no dilated loops of bowel. The appendix is normal. There is a small sliding hiatal hernia. There are no pathologically enlarged lymph nodes. There is no free intraperitoneal fluid. There is mild thoracic and lumbar spondylosis. IMPRESSION: 1. Small sliding hiatal hernia. Reviewed, dictated and finalized at location E.
[2025-06-25 09:11] VITALS: BP 105/66; PULSE 75; RESP 16; TEMP 36.6; O2SAT 99
--- NOTE | 2025-06-25 09:11 | ECG_ITS ---
Test Date: 2025-06-25 09:23:00 Measurements Intervals Mcclure Rate: 65 P: 35 CT: 139 QRS: 69 QRSD: 98 T: 50 QT: 409 QTc: 426 Interpretive Statements SINUS RHYTHM Compared to ECG 11/07/2024 09:22:07 No significant changes Electronically Signed On 06-25-2025 12:38:01 CDT by Jacob Horta M.D.
--- OUTSIDE RECORDS SUMMARY | 2025-06-25 09:28 | XMS_ITS | Clinical Summary ---
Author Organization [facility] [place] 163 [facility] Address [address] [place] [address] Care Team Providers Care Systems Analysis Manager Name Role Phone Miscellaneous, Not In File [...] is not due for a follow-up with independent crop consultant until May. We will check pelvic and [...] depression. Her fiance is deployed to the [facility]. We increase the dose of Celexa [...] on file Legal Sex Female 11:14 PM STRATEGY DIRECTOR Gender Identity Not on file Sexual Orientation Not on file Occupation Industry Job Start Date Job End Date [employer] Not on file Not on file [...] Comments Blood Pressure 124/78 08/15/2023 10:20 AM STRATEGY DIRECTOR Pulse 71 06/25/2023 12:48 PM CDT Temperature 36.6 C (97.9 F) 06/25/2023 12:48 PM CDT Respiratory Rate 16 06/25/2023 12:48 PM CDT Oxygen Saturation 100% 06/25/2023 12:48 PM CDT Inhaled Oxygen Concentration - - Weight 89.4 kg (197 lb) 08/15/2023 10:20 AM STRATEGY DIRECTOR Height 162.6 cm (5' 4) 08/15/2023 10:20 AM STRATEGY DIRECTOR Body Mass Index 33.81 08/15/2023 10:20 AM STRATEGY DIRECTOR Plan of Treatment Health Maintenance Due Date [...] has been evaluated with computer assisted technology. Iron And Steel Work Supervisor Juan Miguel Mcneill Comment: ABC, CT(ASCP) CT screening [facility]: [facility] Administration [place] [phone] Comment BioTeSysKathOlga Lidia Mccabe Comment: EXPLANATORY NOTE: The Pap [...] ORDERABLES Final Re sult NAOMI PinoSt Mccabe [address] [place] [address] from Last 3 Months or Most Recently Relevant to Health Maintenance Insurance [employer] OPEN ACCESS HEALTHLINK OPEN ACCESS [facility] Care Teams Systems Analysis Manager Relationship Specialty Start Date End Date Miscellaneous, Not In File PCP - General 06/25/23
--- OUTSIDE RECORDS SUMMARY | 2025-06-25 09:28 | XMS_ITS | Clinical Summary ---
Author Organization [facility] Address [address] [place] [address] Phone Care Team Providers Care Drug Enforcement Administration Agent Name Role Phone Syed Santos Primary Care Provider Meredith Meng APRN, HUMAN RESOURCES ADVISOR Unavailable Allergies Active Allergy Reactions Criticality Noted [...] depression. Her fiance is deployed to the [employer] [place]. We increase the dose of Celexa [...] Priority Date/Time Associated Diagnosis Comments PATHOLOGY CYTOLOGY ZONING ASSISTANT 07/28/2021 12:00 AM CDT from Last 3 Months or Most Recently Relevant to Health Maintenance Results * PATHOLOGY CYTOLOGY ZONING ASSISTANT (07/28/2021 12:00 AM CDT) 07/28/2021 us Provider Scan PATHOLOGY/CYTOLOGY ORDERABLES Fi nal Result SCAN from Last 3 Months or Most Recently Relevant to Health Maintenance Care Teams Drug Enforcement Administration Agent Relationship Specialty Start Date End Date Syed Santos, PAC [address] [place] [address] PCP - General Physician Passenger Interline Clerk 11/20/23 Meredith Meng, APARTMENT MAINTENANCE TECHNICIAN, HUMAN RESOURCES ADVISOR [address] [place] [address] Nurse Practitioner Advanced Practice Nurse 02/04/24
[2025-06-25 09:30] VITALS: BP 116/70; PULSE 70; RESP 18; O2SAT 98
[2025-06-25 09:36] LABS: Hematocrit 40.2 % (35.0-49.0); Hemoglobin 12.5 g/dL (12.0-15.0); Immature Granulocyte Percent A 0.1 % (0.0-0.0); Lymphocytes Absolute Auto 2.02 K/mm3 (1.10-4.50); Mean Corpuscular HGB Conc 31.1 g/dL (32-36); Mean Corpuscular Hemoglobin 24.9 pg (27.0-31.0); Mean Corpuscular Volume 79.9 fL (78.0-102.0); Nucleated Red Blood Cells Absolute Auto 0.00 K/mm3 (0.00-0.00); Nucleated Red Blood Cells Perc 0.0 % (0-0.0); Platelet Count Result 330 K/mm3 (150-420); Red Blood Count 5.03 M/mm3 (4.20-5.40); White Blood Count 7.5 K/mm3 (4.8-10.8)
[2025-06-25] MEDS: SODIUM CHLORIDE 0.9% IV 1,000 ML 999 ML IV CONT (09:36)
--- NOTE | 2025-06-25 09:39 | PC.NURSE ---
Patient going down to ultrasound, patient requesting to wait on medications until she is back
[2025-06-25 09:48] LABS: Alanine Aminotransferase 15 U/L (6-35); Albumin Level 4.4 g/dL (3.5-5.1); Alkaline Phosphatase 53 U/L (38-126); Anion Gap 10 mmol/L (4-12); Aspartate Amino Transferase 21 U/L (14-36); Bilirubin,Total 0.7 mg/dL (0.2-1.3); Blood Urea Nitrogen 9 mg/dL (7-17); Calcium 9.1 mg/dL (8.4-10.2); Carbon Dioxide 21 mmol/L (22-30); Chloride 109 mmol/L (98-107); Estimated CRCL calculation 107 ml/min; Estimated Glomerular Filt Rate > 60; Glucose 94 mg/dL (65-110); Lipase 131 U/L (23-300); Osmolality Calculated 288 mOsm/kg (285-295); Potassium 4.2 mmol/L (3.4-5.0); Sodium 140 mmol/L (137-145); Total Protein 8.5 g/dL (6.3-8.2)
[2025-06-25 09:50] LABS: INR 0.9; Partial Thromboplastin Time 27.2 Sec (23.9-30.70); Prothrombin Time 10.1 Seconds (9.50-12.1)
[2025-06-25 10:00] VITALS: BP 99/84; PULSE 63; RESP 18; O2SAT 99
--- NOTE | 2025-06-25 10:02 | PC.NURSE ---
patient back in room from CT>
[2025-06-25] MEDS: PANTOPRAZOLE SODIUM IV 40 MG VIAL IV PUSH (10:03)
[2025-06-25] MEDS: ONDANSETRON INJ 4 MG/2 ML VIAL IV PUSH (10:04)
[2025-06-25] MEDS: MORPHINE SULFATE (*CRX) 4 MG/ML INJ IV PUSH (10:06)
--- OUTSIDE RECORDS SUMMARY | 2025-06-25 10:20 | XMS_ITS | Clinical Summary ---
Author Organization [facility] Address [address] [place] [address] Phone Care Team Providers Care Grey Goods Marker Name Role Phone Syed Santos Primary Care Provider Meredith Meng APRN, GUIDANCE SECRETARY Unavailable Allergies Active Allergy Reactions Criticality Noted [...] depression. Her fiance is deployed to the [employer] [place]. We increase the dose of Celexa [...] Priority Date/Time Associated Diagnosis Comments PATHOLOGY CYTOLOGY PEER COUNSELOR 07/28/2021 12:00 AM CDT from Last 3 Months or Most Recently Relevant to Health Maintenance Results * PATHOLOGY CYTOLOGY PEER COUNSELOR (07/28/2021 12:00 AM CDT) 07/28/2021 us Provider Scan PATHOLOGY/CYTOLOGY ORDERABLES Fi nal Result SCAN from Last 3 Months or Most Recently Relevant to Health Maintenance Care Teams Grey Goods Marker Relationship Specialty Start Date End Date Syed Santos, PAC [address] [place] [address] PCP - General Physician Precision Honer 11/20/23 Meredith Meng, BULK DRIVER, GUIDANCE SECRETARY [address] [place] [address] Nurse Practitioner Advanced Practice Nurse 02/04/24
--- OUTSIDE RECORDS SUMMARY | 2025-06-25 10:20 | XMS_ITS | Clinical Summary ---
Author Organization [facility] [place] 163 [facility] Address [address] [address] Care Team Providers Care Alumni Secretary Name Role Phone Miscellaneous, Not In File [...] is not due for a follow-up with luggage liner until May. We will check pelvic and [...] depression. Her fiance is deployed to the [facility]. We increase the dose of Celexa [...] fiance was deployed to [facility] for a year. He is in the [...] on file Legal Sex Female 11:14 PM PIPE BENDING MACHINE OPERATOR Gender Identity Not on file Sexual Orientation Not on file Occupation Industry Job Start Date Job End Date [employer] Not on file Not on file Not [...] Comments Blood Pressure 124/78 08/15/2023 10:20 AM PIPE BENDING MACHINE OPERATOR Pulse 71 06/25/2023 12:48 PM CDT Temperature 36.6 C (97.9 F) 06/25/2023 12:48 PM CDT Respiratory Rate 16 06/25/2023 12:48 PM CDT Oxygen Saturation 100% 06/25/2023 12:48 PM CDT Inhaled Oxygen Concentration - - Weight 89.4 kg (197 lb) 08/15/2023 10:20 AM PIPE BENDING MACHINE OPERATOR Height 162.6 cm (5' 4) 08/15/2023 10:20 AM PIPE BENDING MACHINE OPERATOR Body Mass Index 33.81 08/15/2023 10:20 AM PIPE BENDING MACHINE OPERATOR Plan of Treatment Health Maintenance [...] has been evaluated with computer assisted technology. Hoop Bending Machine Operator Juan Miguel Mcneill Comment: ABC, CT(ASCP) CT screening location: [facility] Administration [place] [id number] Comment Next JumpKathOlga Lidia Mccabe Comment: EXPLANATORY NOTE: The Pap [...] ORDERABLES Final Re sult NAOMI PinoSt Mccabe [address] [place] [address] from Last 3 Months or Most Recently Relevant to Health Maintenance Insurance [email or web address] OPEN ACCESS HEALTHLINK OPEN ACCESS [facility] Care Teams Alumni Secretary Relationship Specialty Start Date End Date Miscellaneous, Not In File PCP - General 06/25/23
[2025-06-25 10:30] VITALS: BP 114/70; PULSE 60; RESP 18; O2SAT 100
--- NOTE | 2025-06-25 10:40 | ED_ITS ---
HPI - Abdominal Pain General Chief Complaint: Abdominal Pain Stated Complaint: left flank pain, confirmed cdiff Time Seen by Provider: 06/25/25 09:06 Source: patient and family Mode of arrival: ambulatory Limitations: no limitations History of Present Illness HPI narrative: this is a 30-year-old female with complaints of abdominal pain that started today saw her primary yesterday and had blood work performed and was told she had C diff currently on medication. Patient is afebrile with no nausea vomiting no diarrhea or constipation no flank pain no dysuria no hematuria currently feels nauseous with no vomiting no chest pain. MD elicited complaint: abdominal pain Pertinent past history: none Onset (ago): day(s) Pain Consistency: intermittent Related Data Home Medications ?Medication ?Instructions ?Recorded ?Confirmed ?Last Taken ?Type acetaminophen 500 mg capsule 1,000 mg PO Q6H PRN pain 05/04/25 05/04/25 Unknown History ondansetron HCl 4 mg tablet 4 mg PO Q8H PRN nausea and vomiting 05/04/25 05/04/25 Unknown History Allergies Allergy/AdvReac Type Severity Reaction Status Date / Time NSAIDS (Non-Steroidal Allergy Mild hives Verified 06/25/25 09:18 Anti-Inflamma Review of Systems 2 Review of Systems: All systems reviewed & are unremarkable except as noted in HPI and below PMFSH Past Medical History Medical History BRBPR (bright red blood per rectum) Rectal pain Nausea & vomiting Alternating constipation and diarrhea IBS (irritable bowel syndrome) Surgical History Surgical History [place] teeth extracted Family History Family History Grandparent Diabetes mellitus Other Cerebrovascular accident Coronary artery disease Social History Social History Smoking status: Never smoker Tobacco type: e-cigarettes/vaping Additional smoking assessment comments: VAPING DAILY FOR 2 YRS Alcohol intake: current Alcohol use details: 3 PER MONTH Substance use: never Living arrangements: with family Exam 2 Const: General: healthy appearing and no acute distress Nutritional Appearance: well nourished Orientation/consciousness: patient oriented x3 Limitations: no limitations HENMT: Head: normal to inspection Eyes: Conjunctivae: conjunctivae normal Pupils: Equal, round and reactive pupils present Neck: Neck: normal visual inspection Chest: Chest palpation & inspection: normal inspection of the chest Resp: Effort & Inspection: normal respiratory effort Auscultation: clear to auscultation bilaterally Cardio: Rate: regular rate Rhythm: regular rhythm GI: GI Palp: Yes Soft to palpation Auscultation: normal bowel sounds : General: Yes bladder normal to palpation Neuro: General: patient oriented x3 and moves all extremities Extrem: General: normal to inspection, no clubbing, cyanosis or edema and no pedal edema Course Course Emergency Course: Patient with abdominal pain received IV fluids morphine for pain control and Zofran for nausea, white count is within normal limits patient had ultrasound of right upper quadrant which showed no acute abnormality CT scan of abdomen pelvis with no acute abnormalities blood work reviewed with patient. After reassessment after pain medicine and nausea medicine patient has improved. Vital Signs Vital signs: Vital Signs Temperature 36.6 C 06/25/25 09:11 Pulse Rate 75 06/25/25 09:11 Respiratory Rate 16 06/25/25 09:11 Blood Pressure 105/66 06/25/25 09:11 Pulse Oximetry 99 06/25/25 09:11 Oxygen Delivery Room Air 06/25/25 09:11 Temperature 36.6 C 06/25/25 09:11 Pulse Rate 75 06/25/25 09:11 Respiratory Rate 16 06/25/25 09:11 Blood Pressure 105/66 06/25/25 09:11 Pulse Oximetry 99 06/25/25 09:11 Oxygen Delivery Room Air 06/25/25 09:11 MDM - Abdominal Pain Lab Data 06/25/25 09:24 06/25/25 09:24 Labs: Lab Results 06/25/25 Range/Units 09:24 WBC 7.5 (4.8-10.8) K/mm3 RBC 5.03 (4.20-5.40) M/mm3 Hgb 12.5 (12.0-15.0) g/dL Hct 40.2 (35.0-49.0) % MCV 79.9 (78.0-102.0) fL MCH 24.9 L (27.0-31.0) pg MCHC 31.1 L (32-36) g/dL RDW 15.1 H (11.6-14.4) % Plt Count 330 (150-420) K/mm3 MPV 9.9 (9.2-11.8) fl Immature Gran % (Auto) 0.1 H (0.0-0.0) % Neut % (Auto) 62.3 (50.0-70.0) % Lymph % (Auto) 27.0 (18.0-42.0) % Gregory % (Auto) 5.4 (2.0-11.0) % Eos % (Auto) 4.3 (1.0-6.0) % Baso % (Auto) 0.9 (0.0-1.0) % Lymph # (Auto) 2.02 (1.10-4.50) K/mm3 Gregory # (Auto) 0.40 (0.10-0.90) K/mm3 Eos # (Auto) 0.32 (0.02-0.50) K/mm3 Baso # (Auto) 0.07 (0.00-0.10) K/mm3 Abs Immat Gran (auto) 0.01 H (0.00-0.00) K/mm3 Absolute Neuts (auto) 4.65 (1.70-7.20) K/mm3 Absolute Nucleated RBC 0.00 (0.00-0.00) K/mm3 Nucleated RBC % 0.0 (0-0.0) % PT 10.1 (9.50-12.1) Seconds INR 0.9 APTT 27.2 (23.9-30.70) Sec Sodium 140 (137-145) mmol/L Potassium 4.2 (3.4-5.0) mmol/L Chloride 109 H (98-107) mmol/L Carbon Dioxide 21 L (22-30) mmol/L Anion Gap 10 (4-12) mmol/L BUN 9 (7-17) mg/dL Creatinine 0.72 (0.7-1.0) mg/dL Estim Creat Clear Calc 107 ml/min Estimated GFR > 60 (59 - ) Glucose 94 (65-110) mg/dL Calculated Osmolality 288 (285-295) mOsm/kg Lactic Acid 0.8 (0.4-2.0) mmol/L Calcium 9.1 (8.4-10.2) mg/dL Total Bilirubin 0.7 (0.2-1.3) mg/dL AST 21 (14-36) U/L ALT 15 (6-35) U/L Alkaline Phosphatase 53 (38-126) U/L Total Protein 8.5 H (6.3-8.2) g/dL Albumin 4.4 (3.5-5.1) g/dL Lipase 131 (23-300) U/L Imaging Data Radiologist's impression: ITS Impressions Upper Quadrant Ultrasound 06/25/25 10:07 IMPRESSION: 1. No acute findings. Abdomen/Pelvis CT 06/25/25 10:10 IMPRESSION: 1. Small sliding hiatal hernia. Critical Care Time Critical Care Time Critical Care Time: No Discharge Plan Discharge Clinical Impression: Abdominal pain Qualifiers: Abdominal location: generalized Qualified Code(s): R10.84 - Generalized abdominal pain Patient Disposition: Home Condition: Stable Instructions: Antibiotic Form, Acute Nausea and Vomiting (ED), Abdominal Pain (ED) Additional Instructions: advised to take medication as prescribed and follow with primary care physician within next 3 to 5 days for further evaluation and treatment. Patient Language: Cape Verdean Prescriptions: New tramadol 50 mg tablet 50 mg PO Q6H PRN (Reason: pain) Qty: 20 0RF ondansetron 4 mg tablet,disintegrating 4 mg PO Q6H PRN (Reason: nausea and vomiting) Qty: 14 0RF No Action ondansetron 4 mg tablet,disintegrating 4 mg PO Q6H PRN (Reason: nausea and vomiting) Qty: 20 0RF phentermine 37.5 mg tablet 18.75 mg PO DAILY Qty: 30 2RF Rx Instructions: must administer 30 minutes before or 1-2 hours after breakfast Nexplanon 68 mg implant 1 implant subdermal ONCE Qty: 1 0RF Rx Instructions: as a single dose Lot- [id number] 2027-03 [facility]- [id number] STEPH/AW acetaminophen 500 mg capsule 1,000 mg PO Q6H PRN (Reason: pain) ondansetron HCl 4 mg tablet 4 mg PO Q8H PRN (Reason: nausea and vomiting) oxycodone 5 mg tablet 5 mg PO Q8H PRN (Reason: pain) Qty: 21 0RF metoclopramide HCl 10 mg tablet 10 mg PO Q6H PRN (Reason: nausea and vomiting) Qty: 30 0RF alprazolam 0.5 mg tablet 0.5 mg PO BID PRN (Reason: anxiety) Qty: 20 0RF citalopram 40 mg tablet See Rx Instructions .ROUTE .COMPLEX Qty: 90 2RF Dose Instruction: TAKE 1 TABLET BY MOUTH EVERY DAY Rx Instructions: TAKE 1 TABLET BY MOUTH EVERY DAY pantoprazole 40 mg tablet,delayed release (DR/EC) See Rx Instructions .ROUTE .COMPLEX Qty: 42 0RF Dose Instruction: TAKE 1 TABLET BY MOUTH EVERY MORNING Rx Instructions: TAKE 1 TABLET BY MOUTH EVERY MORNING dicyclomine 10 mg capsule 10 mg PO TID PRN (Reason: abdominal pain) Qty: 90 5RF Xifaxan 550 mg tablet See Rx Instructions .ROUTE .COMPLEX Qty: 30 3RF Dose Instruction: TAKE 1 TABLET BY MOUTH EVERY DAY Rx Instructions: TAKE 1 TABLET BY MOUTH EVERY DAY bupropion HCl 300 mg tablet extended release 24 hr See Rx Instructions .ROUTE .COMPLEX Qty: 90 2RF Dose Instruction: TAKE 1 TABLET BY MOUTH EVERY MORNING Rx Instructions: TAKE 1 TABLET BY MOUTH EVERY MORNING vancomycin 125 mg capsule 125 mg PO Q6H 10 Days Qty: 40 0RF Follow-up/Referrals: Lavelle Chávez DO [Primary Care Provider, Family Practice] Time of Disposition: 10:46
[2025-06-25 11:00] VITALS: BP 98/64; PULSE 62; RESP 18; TEMP 36.8; O2SAT 100
--- NOTE | 2025-06-28 17:16 | PC.NURSE ---
BLOOD CULTURE, PRELIMINARY, NO GROWTH
--- NOTE | 2025-07-02 13:45 | PC.NURSE ---
final blood cultures x2 reviewed. no growth in 5 days. no change in plan of care
== END 2025-06-25 11:00 | disposition home or self-care (01) ==
PROVIDERS: Emergency Provider Emergency Medicine; PCP Family Medicine
DX: R10.84 Generalized abdominal pain (principal)
CPT/HCPCS: 36415; 74177; 76705; 80053; 83605; 83690; 85025; 85610; 85730; 87040; 93005; 96361; 96374; 96375; 99284; J2270; J2405; J2470; J7030; Q9967

== ENCOUNTER 2025-07-07 08:58 | Outpatient (CLI) | payer OTHER, SELFPAY ==
[2025-07-07 09:17] LABS: Hematocrit 41.0 % (35.0-49.0); Hemoglobin 12.7 g/dL (12.0-15.0); Immature Granulocyte Percent A 0.4 % (0.0-0.0); Lymphocytes Absolute Auto 1.55 K/mm3 (1.10-4.50); Mean Corpuscular HGB Conc 31.0 g/dL (32-36); Mean Corpuscular Hemoglobin 25.0 pg (27.0-31.0); Mean Corpuscular Volume 80.7 fL (78.0-102.0); Nucleated Red Blood Cells Absolute Auto 0.00 K/mm3 (0.00-0.00); Nucleated Red Blood Cells Perc 0.0 % (0-0.0); Platelet Count Result 370 K/mm3 (150-420); Red Blood Count 5.08 M/mm3 (4.20-5.40); White Blood Count 12.2 K/mm3 (4.8-10.8)
--- OUTSIDE RECORDS SUMMARY | 2025-07-07 09:25 | XMS_ITS | Clinical Summary ---
Author Organization [facility] Address [address] [place] [address] Phone Care Team Providers Care Foreign Language Interpreter Name Role Phone Syed Santos Primary Care Provider [phone] Meredith Meng APRN, PARA MACHINE OPERATOR Unavailable Allergies Active Allergy Reactions Criticality [...] depression. Her fiance is deployed to the [employer] [place]. We increase the dose of Celexa [...] Priority Date/Time Associated Diagnosis Comments PATHOLOGY CYTOLOGY DIGITAL COMMUNICATIONS MANAGER 07/28/2021 12:00 AM CDT from Last 3 Months or Most Recently Relevant to Health Maintenance Results * PATHOLOGY CYTOLOGY DIGITAL COMMUNICATIONS MANAGER (07/28/2021 12:00 AM CDT) 07/28/2021 us Provider Scan PATHOLOGY/CYTOLOGY ORDERABLES Fi nal Result SCAN from Last 3 Months or Most Recently Relevant to Health Maintenance Care Teams Foreign Language Interpreter Relationship Specialty Start Date End Date Syed Santos, PAC [address] [place] [address] PCP - General Physician Pickling Tank Operator 11/20/23 Meredith Meng, BENEFITS DIRECTOR, PARA MACHINE OPERATOR [address] [place] [address] Nurse Practitioner Advanced Practice Nurse 02/04/24
--- OUTSIDE RECORDS SUMMARY | 2025-07-07 09:25 | XMS_ITS | Clinical Summary ---
Author Organization [facility] [address] [facility] Address [address] [place] [address] Care Team Providers Care Trestle Builder Name Role Phone Miscellaneous, Not In File [...] is not due for a follow-up with death claim clerk until May. We will check pelvic and [...] on file Legal Sex Female 11:14 PM LEATHER PRODUCTION ARTISAN Gender Identity Not on file Sexual Orientation Not on file Occupation Industry Job Start Date Job End Date [employer] Not on file Not [...] Comments Blood Pressure 124/78 08/15/2023 10:20 AM LEATHER PRODUCTION ARTISAN Pulse 71 06/25/2023 12:48 PM CDT Temperature 36.6 C (97.9 F) 06/25/2023 12:48 PM CDT Respiratory Rate 16 06/25/2023 12:48 PM CDT Oxygen Saturation 100% 06/25/2023 12:48 PM CDT Inhaled Oxygen Concentration - - Weight 89.4 kg (197 lb) 08/15/2023 10:20 AM LEATHER PRODUCTION ARTISAN Height 162.6 cm (5' 4) 08/15/2023 10:20 AM LEATHER PRODUCTION ARTISAN Body Mass Index 33.81 08/15/2023 10:20 AM LEATHER PRODUCTION ARTISAN Plan of Treatment Health Maintenance Due Date [...] has been evaluated with computer assisted technology. Production Control Expert Juan Miguel Mcneill Comment: ABC, CT(ASCP) CT screening location: [facility] [place] [id number] Comment Tableau SoftwareKathOlga Lidia Mccabe Comment: EXPLANATORY NOTE: The Pap [...] ORDERABLES Final Re sult [facility]I [facility]ino[facility] Mccabe [address] [place] [address] from Last 3 Months or Most Recently Relevant to Health Maintenance Insurance [employer] OPEN ACCESS [facility] OPEN [facility] Care Teams Trestle Builder Relationship Specialty Start Date End Date Miscellaneous, Not In File PCP - General 06/25/23
[2025-07-07 09:31] LABS: Alanine Aminotransferase 17 U/L (6-35); Albumin Level 4.4 g/dL (3.5-5.1); Alkaline Phosphatase 55 U/L (38-126); Anion Gap 9 mmol/L (4-12); Aspartate Amino Transferase 26 U/L (14-36); Bilirubin,Total 0.6 mg/dL (0.2-1.3); Blood Urea Nitrogen 8 mg/dL (7-17); Calcium 9.2 mg/dL (8.4-10.2); Carbon Dioxide 24 mmol/L (22-30); Chloride 109 mmol/L (98-107); Estimated Glomerular Filt Rate > 60; Glucose 108 mg/dL (65-110); Osmolality Calculated 293 mOsm/kg (285-295); Potassium 4.6 mmol/L (3.4-5.0); Sodium 142 mmol/L (137-145); Total Protein 8.8 g/dL (6.3-8.2)
[2025-07-07 10:24] LABS: Toxigenic C. Diff NEGATIVE (NEGATIVE)
== END 2025-07-07 08:59 | disposition home or self-care (01) ==
LOC: CHSLAB 08:59
PROVIDERS: PCP Family Medicine; Visit Provider Family Medicine
DX: R19.7 Diarrhea, unspecified (principal)
CPT/HCPCS: 36415; 80053; 85025; 87493

== ENCOUNTER 2025-07-14 07:57 | Outpatient (CLI) | payer OTHER, SELFPAY ==
--- OUTSIDE RECORDS SUMMARY | 2025-07-14 08:05 | XMS_ITS | Clinical Summary ---
Author Organization [facility] Address [address] [place] [address] Phone Care Team Providers Care Plant Controls Specialist Name Role Phone Syed Santos Primary Care Provider [phone] Meredith Meng APRN, PATTERN DESIGNER Unavailable Allergies Active Allergy Reactions Criticality Noted [...] depression. Her fiance is deployed to the [employer] [place]. We increase the dose of Celexa [...] Priority Date/Time Associated Diagnosis Comments PATHOLOGY CYTOLOGY PER DIEM PHYSICAL THERAPIST ASSISTANT 07/28/2021 12:00 AM CDT from Last 3 Months or Most Recently Relevant to Health Maintenance Results * PATHOLOGY CYTOLOGY PER DIEM PHYSICAL THERAPIST ASSISTANT (07/28/2021 12:00 AM CDT) 07/28/2021 us Provider Scan PATHOLOGY/CYTOLOGY ORDERABLES Fi nal Result SCAN from Last 3 Months or Most Recently Relevant to Health Maintenance Care Teams Plant Controls Specialist Relationship Specialty Start Date End Date Syed Santos, PAC [address] [place] [address] PCP - General Physician Aquaculture Worker 11/20/23 Meredith Meng, LABORER ELECTROPLATING, PATTERN DESIGNER [address] [place] [address] Nurse Practitioner Advanced Practice Nurse 02/04/24
--- OUTSIDE RECORDS SUMMARY | 2025-07-14 08:05 | XMS_ITS | Clinical Summary ---
Author Organization [facility] [address] [facility] Address [address] [place] [address] Care Team Providers Care Oil Treater Name Role Phone Miscellaneous, Not In File [...] is not due for a follow-up with yeast fermentation attendant until May. We will check pelvic and [...] depression. Her fiance is deployed to the [facility]. We increase the dose of Celexa [...] dysphoria since her fiance was deployed to [facility] for a year. He is [...] on file Legal Sex Female 11:14 PM CREW LEADER/CONTROL ROOM OPERATOR Gender Identity Not on file Sexual Orientation Not on file Occupation Industry Job Start Date Job End Date [employer] Not on file Not on [...] Comments Blood Pressure 124/78 08/15/2023 10:20 AM CREW LEADER/CONTROL ROOM OPERATOR Pulse 71 06/25/2023 12:48 PM CDT Temperature 36.6 C (97.9 F) 06/25/2023 12:48 PM CDT Respiratory Rate 16 06/25/2023 12:48 PM CDT Oxygen Saturation 100% 06/25/2023 12:48 PM CDT Inhaled Oxygen Concentration - - Weight 89.4 kg (197 lb) 08/15/2023 10:20 AM CREW LEADER/CONTROL ROOM OPERATOR Height 162.6 cm (5' 4) 08/15/2023 10:20 AM CREW LEADER/CONTROL ROOM OPERATOR Body Mass Index 33.81 08/15/2023 10:20 AM CREW LEADER/CONTROL ROOM OPERATOR Plan of Treatment Health Maintenance Due [...] has been evaluated with computer assisted technology. Public Opinion Survey Taker Juan Miguel Mcneill Comment: ABC, CT(ASCP) CT screening [facility]: [facility] [place] [id number] Comment MyWealthKathOlga Lidia Mccabe Comment: EXPLANATORY NOTE: The Pap [...] ORDERABLES Final Re sult [facility]I [facility] [address] [place] [address] from Last 3 Months or Most Recently Relevant to Health Maintenance Insurance [employer] OPEN ACCESS [facility] OPEN ACCESS [facility] Care Teams Oil Treater Relationship Specialty Start Date End Date Miscellaneous, Not In File PCP - General 06/25/23
[2025-07-14 08:14] LABS: Hematocrit 39.4 % (35.0-49.0); Hemoglobin 12.3 g/dL (12.0-15.0); Immature Granulocyte Percent A 0.3 % (0.0-0.0); Lymphocytes Absolute Auto 1.72 K/mm3 (1.10-4.50); Mean Corpuscular HGB Conc 31.2 g/dL (32-36); Mean Corpuscular Hemoglobin 25.3 pg (27.0-31.0); Mean Corpuscular Volume 80.9 fL (78.0-102.0); Nucleated Red Blood Cells Absolute Auto 0.00 K/mm3 (0.00-0.00); Nucleated Red Blood Cells Perc 0.0 % (0-0.0); Platelet Count Result 321 K/mm3 (150-420); Red Blood Count 4.87 M/mm3 (4.20-5.40); White Blood Count 10.1 K/mm3 (4.8-10.8)
[2025-07-14 08:45] LABS: Alanine Aminotransferase 17 U/L (6-35); Albumin Level 4.3 g/dL (3.5-5.1); Alkaline Phosphatase 54 U/L (38-126); Anion Gap 11 mmol/L (4-12); Aspartate Amino Transferase 25 U/L (14-36); Bilirubin,Total 0.6 mg/dL (0.2-1.3); Blood Urea Nitrogen 9 mg/dL (7-17); Calcium 9.1 mg/dL (8.4-10.2); Carbon Dioxide 21 mmol/L (22-30); Chloride 109 mmol/L (98-107); Estimated Glomerular Filt Rate > 60; Glucose 107 mg/dL (65-110); Osmolality Calculated 290 mOsm/kg (285-295); Potassium 4.3 mmol/L (3.4-5.0); Sodium 141 mmol/L (137-145); Total Protein 8.3 g/dL (6.3-8.2)
[2025-07-14 08:53] LABS: Influenza A QL RT-PCR Negative (Negative); Influenza B QL RT-PCR Negative (Negative); RSV RNA, RT-PCR Negative (Negative); SARS-CoV-2 RNA PCR Negative (Negative)
== END 2025-07-14 07:58 | disposition home or self-care (01) ==
PROVIDERS: PCP Family Medicine; Visit Provider Family Medicine
DX: R11.0 Nausea (principal)
CPT/HCPCS: 36415; 80053; 85025; 87637

== ENCOUNTER 2025-07-23 08:49 | Outpatient (CLI) | payer OTHER, SELFPAY ==
[2025-07-23 09:04] LABS: Hematocrit 40.6 % (35.0-49.0); Hemoglobin 12.4 g/dL (12.0-15.0); Immature Granulocyte Percent A 0.5 % (0.0-0.0); Lymphocytes Absolute Auto 1.81 K/mm3 (1.10-4.50); Mean Corpuscular HGB Conc 30.5 g/dL (32-36); Mean Corpuscular Hemoglobin 24.9 pg (27.0-31.0); Mean Corpuscular Volume 81.7 fL (78.0-102.0); Nucleated Red Blood Cells Absolute Auto 0.00 K/mm3 (0.00-0.00); Nucleated Red Blood Cells Perc 0.0 % (0-0.0); Platelet Count Result 315 K/mm3 (150-420); Red Blood Count 4.97 M/mm3 (4.20-5.40); White Blood Count 8.8 K/mm3 (4.8-10.8)
[2025-07-23 09:18] LABS: INR 0.9; Prothrombin Time 10.0 Seconds (9.50-12.1)
--- OUTSIDE RECORDS SUMMARY | 2025-07-23 09:18 | XMS_ITS | Clinical Summary ---
Author Organization [facility] [address] [facility] Address [address] [place] [address] Care Team Providers Care Obstetrics Technician Name Role Phone Miscellaneous, Not In File [...] is not due for a follow-up with senior portfolio analyst until May. We will check pelvic and [...] depression. Her fiance is deployed to the [facility]. We increase the dose of Celexa [...] dysphoria since her fiance was deployed to [facility] [place] for a year. He is in the [...] on file Legal Sex Female 11:14 PM SELF RISING FLOUR MIXER Gender Identity Not on file Sexual Orientation Not on file Occupation Industry Job Start Date Job End Date [employer] Not on file Not on file Not [...] Comments Blood Pressure 124/78 08/15/2023 10:20 AM SELF RISING FLOUR MIXER Pulse 71 06/25/2023 12:48 PM CDT Temperature 36.6 C (97.9 F) 06/25/2023 12:48 PM CDT Respiratory Rate 16 06/25/2023 12:48 PM CDT Oxygen Saturation 100% 06/25/2023 12:48 PM CDT Inhaled Oxygen Concentration - - Weight 89.4 kg (197 lb) 08/15/2023 10:20 AM SELF RISING FLOUR MIXER Height 162.6 cm (5' 4) 08/15/2023 10:20 AM SELF RISING FLOUR MIXER Body Mass Index 33.81 08/15/2023 10:20 AM SELF RISING FLOUR MIXER Plan of Treatment Health Maintenance Due Date [...] has been evaluated with computer assisted technology. Anatomy And Physiology Instructor Juan Miguel Mcneill Comment: ABC, CT(ASCP) CT screening location: [facility] [place] [id number] Comment [email or web address] Lidia Mccabe Comment: EXPLANATORY NOTE: The Pap [...] ORDERABLES Final Re sult [facility]I [facility]ino[facility]abe [address] [place] [address] from Last 3 Months or Most Recently Relevant to Health Maintenance Insurance [employer] OPEN ACCESS [facility] OPEN ACCESS [facility] Care Teams Obstetrics Technician Relationship Specialty Start Date End Date Miscellaneous, Not In File PCP - General 06/25/23
--- OUTSIDE RECORDS SUMMARY | 2025-07-23 09:18 | XMS_ITS | Clinical Summary ---
Author Organization [facility] Address [address] [place] [address] Phone Care Team Providers Care Architectural Administrative Assistant Name Role Phone Syed Santos Primary Care Provider Meredith Meng APRN, COLD STORAGE WORKER Unavailable Allergies Active Allergy Reactions Criticality Noted [...] depression. Her fiance is deployed to the [employer] [place]. We increase the dose of Celexa [...] Priority Date/Time Associated Diagnosis Comments PATHOLOGY CYTOLOGY GLASS TECHNICIAN 07/28/2021 12:00 AM CDT from Last 3 Months or Most Recently Relevant to Health Maintenance Results * PATHOLOGY CYTOLOGY GLASS TECHNICIAN (07/28/2021 12:00 AM CDT) 07/28/2021 us Provider Scan PATHOLOGY/CYTOLOGY ORDERABLES Fi nal Result SCAN from Last 3 Months or Most Recently Relevant to Health Maintenance Care Teams Architectural Administrative Assistant Relationship Specialty Start Date End Date Syed Santos, PAC [address] [place] [address] PCP - General Physician Quality Assurance Assistant 11/20/23 Meredith Meng, BATTERY ASSEMBLER PLASTIC, COLD STORAGE WORKER [address] [place] [address] Nurse Practitioner Advanced Practice Nurse 02/04/24
[2025-07-23 09:44] LABS: Alanine Aminotransferase 60 U/L (6-35); Albumin Level 4.4 g/dL (3.5-5.1); Alkaline Phosphatase 51 U/L (38-126); Anion Gap 9 mmol/L (4-12); Aspartate Amino Transferase 73 U/L (14-36); Bilirubin,Total 0.6 mg/dL (0.2-1.3); Blood Urea Nitrogen 12 mg/dL (7-17); CRP < 0.5 mg/dL (<1.0); Calcium 9.5 mg/dL (8.4-10.2); Carbon Dioxide 23 mmol/L (22-30); Chloride 111 mmol/L (98-107); Estimated Glomerular Filt Rate > 60; Glucose 88 mg/dL (65-110); Osmolality Calculated 294 mOsm/kg (285-295); Potassium 4.7 mmol/L (3.4-5.0); Sodium 143 mmol/L (137-145); Total Protein 8.2 g/dL (6.3-8.2)
== END 2025-07-23 08:50 | disposition home or self-care (01) ==
LOC: CHSLAB 08:50
PROVIDERS: PCP Family Medicine; Visit Provider Family Medicine
DX: R10.9 Unspecified abdominal pain (principal); A04.71 Enterocolitis due to Clostridium difficile, recurrent
CPT/HCPCS: 36415; 80053; 85025; 85610; 86140

== ENCOUNTER 2025-07-27 09:19 | Emergency (ER) | payer OTHER, SELFPAY ==
[2025-07-27 09:20] VITALS: BP 134/95; PULSE 69; RESP 16; O2SAT 100
--- NOTE | 2025-07-27 09:28 | ED_ITS ---
HPI - General Adult General Chief complaint: Nausea/Vomiting/Diarrhea Stated complaint: abd pain/diarrhea Time Seen by Provider: 07/27/25 09:25 Source: patient Mode of arrival: ambulatory Limitations: no limitations History of Present Illness HPI narrative: The patient is a 30-year-old woman with a history of irritable bowel syndrome for the last 6 years, mostly with constipation initially. She has had multiple antibiotics for strep pharyngitis accommodating in a tonsillectomy 3 months ago. She was diagnosed with Clostridium difficile colitis approximately 1 month ago and was treated with oral vancomycin which she has completed. Repeat C diff toxin assay on 07/07/2025 was negative. She does have chronic diarrheal stools approximately 5 bowel movements per day on average since her C diff colitis episode, with diarrhea being the predominant feature from her irritable bowel syndrome rather than constipation at this time. She is on Protonix occasionally for her GI symptoms. Other comorbidities include obesity, PCOS. Last menstrual period February 2025, on Nexplanon control therapy. The patient went to the emergency room at [facility] on 07/23/2025 for hematochezia. She did not wait for the completion of the evaluation. Her blood work on that day, 07/23/2025 revealed a hemoglobin of 11.8 similar to previous values of 12.3 on 07/14/2025. Her CMP at that time was also unremarkable except for minimal chronic elevation of her liver function tests likely from obesity. Of note, a triple viral swab on 07/14/2025 for influenza RSV and COVID was negative. The patient presents to the emergency room now for increasing lower abdominal pain ongoing since 07/23/2025, equal intensity throughout the lower abdomen, waxing waning in intensity but present for the last 4 days. She does have chronic abdominal pain for the last several years from her irritable bowel syndrome but this pain is more intense in the lower abdomen. She developed vomiting yesterday, with 2 episodes yesterday evening, and 10 episodes over the course of the morning today. She does have chronic diarrheal stools from her irritable bowel syndrome: She had 3 watery bowel movements today, and approximately 5 loose stools yesterday. She has had cough and congestion for the last week. No fevers or chills. No sore throat. No urinary symptoms such as urgency frequency dysuria or hematuria. Does complain of occasional lower back pain. Related Data Home Medications ?Medication ?Instructions ?Recorded ?Confirmed ?Last Taken ?Type acetaminophen 500 mg capsule 1,000 mg PO Q6H PRN pain 05/04/25 07/14/25 Unknown History Allergies Allergy/AdvReac Type Severity Reaction Status Date / Time NSAIDS (Non-Steroidal Allergy Mild hives Verified 07/27/25 09:22 Anti-Inflamma Review of Systems 2 Review of Systems: All systems reviewed & are unremarkable except as noted in HPI and below Constitutional: Constitutional: Denies chills, Denies excessive sweating, Denies fatigue, Denies fever(s), Denies headache(s) and Denies weakness Eyes: Eyes: Denies change in vision and Denies photophobia ENT: Denies dysphagia, Denies dizziness, Denies headache(s), Denies lip swelling, Denies nasal congestion, Denies sore throat and Denies tongue swelling Cardiovascular: Cardiovascular: Denies chest pain, Denies syncope, Denies rapid heart rate and Denies dyspnea Respiratory: Respiratory: Denies cough, Denies dyspnea and Denies wheezing Gastrointestinal: Gastrointestinal: Reports as per HPI, Reports abdominal pain, Denies constipation, Denies dysphagia, Reports diarrhea, Reports nausea and Reports vomiting Genitourinary: Genitourinary: Denies hematuria, Denies urinary frequency, Denies dysuria and Denies urinary urgency Musculoskeletal: Musculoskeletal: Reports back pain (mild lower back pain R > L), Denies myalgias, Denies arthralgias, Denies joint swelling and Denies numbness Integumentary/Breasts: Skin/Breast: Denies pruritus, Denies erythema and Denies rash Neurologic: Denies confusion, Denies dizziness, Denies syncope, Denies headache(s), Denies focal weakness, Denies numbness and Denies weakness Psychiatric: Psychiatric: Denies anxiety and Denies confusion Endocrine: Endocrine: Denies excessive sweating and Denies fatigue Hematologic/Lymphatic: Hematologic/Lymphatic: Denies easy bleeding and Denies easy bruising Allergic/Immunologic: Allergic/Immunologic: Denies lip swelling, Denies tongue swelling and Denies wheezing PMFSH Past Medical History Medical History BRBPR (bright red blood per rectum) Rectal pain Nausea & vomiting Alternating constipation and diarrhea IBS (irritable bowel syndrome) Surgical History Surgical History [place] teeth extracted Family History Family History Grandparent Diabetes mellitus Other Cerebrovascular accident Coronary artery disease Social History Social History Smoking status: Never smoker Tobacco type: e-cigarettes/vaping Additional smoking assessment comments: VAPING DAILY FOR 2 YRS Alcohol intake: current Alcohol use details: 3 PER MONTH Substance use: never Living arrangements: with family Exam 2 Const: General: healthy appearing, no acute distress, alert and well nourished Nutritional Appearance: well nourished Orientation/consciousness: patient oriented x3 Limitations: no limitations HENMT: Head: normal to inspection Ears: external ears normal F bree/Nose/Sinus: normal facial exam Face and sinus: normal facial exam M outh: Yes moist mucous membranes Throat: posterior oropharynx normal Eyes: Conjunctivae: conjunctivae normal Pupils: Equal, round and reactive pupils present EOM: EOMs intact bilaterally Neck: Neck: normal visual inspection and no meningeal signs Chest: Chest palpation & inspection: normal inspection of the chest and no tenderness Resp: Effort & Inspection: normal respiratory effort and not labored A uscultation: clear to auscultation bilaterally, no crackles, no rhonchi and no wheezes Cardio: Rate: regular rate Rhythm: regular rhythm Heart sounds: no murmurs GI: Inspection: non-distended GI Palp: Yes Soft to palpation, Yes Tenderness to palpation present (GI) (Mild tenderness to palpation in the lower abdomen), No Guarding due to palpation present (GI) and No Rebound tenderness present Other: No rebound, no peritoneal signs, no guarding, no distention, no tympany, no CVA tenderness : General: Yes no CVA tenderness Back/Spine/Pelvis: Back: no CVA tenderness Cervical Spine: No Cervical spine tenderness Thoracic/Lumbar Spine: No thoracic spinal tenderness Skin: General skin exam: normal color Rashes: no rashes Wounds: no wounds Neuro: General: patient oriented x3, moves all extremities, no meningeal signs, no focal motor deficits and CN's II-XI intact bilaterally Cranial nerves: Yes Equal, round and reactive pupils present Speech: normal speech Motor exam (neuro): 5/5 motor strength present throughout Sensory Exam: n ormal sensation Extrem: General: normal to inspection and no clubbing, cyanosis or edema Psych: Mental Status: mental status grossly normal Affect: normal affect Course Course Emergency Course: 30-year-old woman with lower abdominal pain for the last 4 days, increased compared to her usual chronic abdominal pain, with increased nausea and vomiting since yesterday. She does have chronic diarrhea at approximately 5 bowel movements per day, and has had 3 watery stools since this morning already. Also with cough and congestion for the last week. Will treat with IV fluids, Zofran, and pursue a workup including CT imaging. 11:26 am: The blood work reveals a slightly elevated white blood cell count of 11.6, with hemoglobin of 12.6 and hematocrit of 40.6, platelet count acceptable 346 1000. The CMP is unremarkable except for minimal elevation of the AST to value of 36. HCG is negative. Amylase lipase is normal. Urinalysis shows no urinary tract infection. Influenza COVID-19 and RSV are negative. The next step would be CT imaging of the abdomen with contrast. Our CT scanner is broken currently. Morphine 2 mg IV for pain since she has an NSAID allergy. Her nausea and vomiting symptoms have improved after the Zofran. 11:37 am: The patient declines transfer to [facility] or or elsewhere for CT imaging. She would rather go home. Can be discharged on Zofran ODT p.r.n. with follow-up with PCP. 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 The symptoms have been ongoing for 4 days so doubt acute appendicitis or significant ovarian pathology. She is agreeable with the plan. All questions answered Vital Signs Vital signs: Vital Signs Pulse Rate 69 07/27/25 09:20 Respiratory Rate 16 07/27/25 09:20 Blood Pressure 134/95 H 07/27/25 09:20 Pulse Oximetry 100 07/27/25 09:20 Oxygen Delivery Room Air 07/27/25 09:20 Temperature 36.8 C 07/27/25 12:00 Pulse Rate 75 07/27/25 12:00 Respiratory Rate 18 07/27/25 12:00 Blood Pressure 131/79 07/27/25 12:00 Pulse Oximetry 100 07/27/25 12:00 Oxygen Delivery Room Air 10/20/25 12:00 Medical Decision Making Vital Signs Vital Signs: Vital Signs Pulse Rate 69 07/27/25 09:20 Respiratory Rate 16 07/27/25 09:20 Blood Pressure 134/95 H 07/27/25 09:20 Pulse Oximetry 100 07/27/25 09:20 Oxygen Delivery Room Air 07/27/25 09:20 Temperature 36.8 C 07/27/25 12:00 Pulse Rate 75 07/27/25 12:00 Respiratory Rate 18 07/27/25 12:00 Blood Pressure 131/79 07/27/25 12:00 Pulse Oximetry 100 07/27/25 12:00 Oxygen Delivery Room Air 07/27/25 12:00 Lab Data 07/27/25 09:57 07/27/25 09:57 Labs: Lab Results 07/27/25 Range/Units 09:57 WBC 11.6 H (4.8-10.8) K/mm3 RBC 5.05 (4.20-5.40) M/mm3 Hgb 12.6 (12.0-15.0) g/dL Hct 40.6 (35.0-49.0) % MCV 80.4 (78.0-102.0) fL MCH 25.0 L (27.0-31.0) pg MCHC 31.0 L (32-36) g/dL RDW 14.6 H (11.6-14.4) % Plt Count 346 (150-420) K/mm3 MPV 9.6 (9.2-11.8) fl Immature Gran % (Auto) 0.7 H (0.0-0.0) % Neut % (Auto) 85.3 H (50.0-70.0) % Lymph % (Auto) 9.8 L (18.0-42.0) % Ramsey % (Auto) 2.8 (2.0-11.0) % Eos % (Auto) 0.9 L (1.0-6.0) % Baso % (Auto) 0.5 (0.0-1.0) % Lymph # (Auto) 1.14 (1.10-4.50) K/mm3 Ramsey # (Auto) 0.33 (0.10-0.90) K/mm3 Eos # (Auto) 0.11 (0.02-0.50) K/mm3 Baso # (Auto) 0.06 (0.00-0.10) K/mm3 Abs Immat Gran (auto) 0.08 H (0.00-0.00) K/mm3 Absolute Neuts (auto) 9.86 H (1.70-7.20) K/mm3 Absolute Nucleated RBC 0.00 (0.00-0.00) K/mm3 Nucleated RBC % 0.0 (0-0.0) % Sodium 142 (137-145) mmol/L Potassium 4.2 (3.4-5.0) mmol/L Chloride 108 H (98-107) mmol/L Carbon Dioxide 24 (22-30) mmol/L Anion Gap 10 (4-12) mmol/L BUN 12 (7-17) mg/dL Creatinine 0.76 (0.7-1.0) mg/dL Estim Creat Clear Calc 102 ml/min Estimated GFR > 60 (59 - ) Glucose 112 H (65-110) mg/dL Calculated Osmolality 294 (285-295) mOsm/kg Lactic Acid 1.7 (0.4-2.0) mmol/L Calcium 8.8 (8.4-10.2) mg/dL Magnesium 2.2 (1.6-2.3) mg/dL Total Bilirubin 0.5 (0.2-1.3) mg/dL AST 31 (14-36) U/L ALT 36 H (6-35) U/L Alkaline Phosphatase 59 (38-126) U/L Total Protein 8.3 H (6.3-8.2) g/dL Albumin 4.5 (3.5-5.1) g/dL Amylase 102 (30-110) U/L Lipase 164 (23-300) U/L Serum HCG, Qual Negative Urine Color Light yellow (Yellow) Urine Appearance Clear (Clear) Urine pH 6.0 (5.0-8.0) Ur Specific Staley 1.020 (1.010-1.020) Urine Protein Negative (Negative) Urine Glucose (UA) Negative (Negative) Urine Ketones Negative (Negative) Ur Blood (Man) Negative (Negative) Urine Nitrate Negative (Negative) Urine Bilirubin Negative (Negative) Urine Urobilinogen 0.2 (0.2-1.0) mg/dL Leukocyte Esterase Rfl Negative (Negative) BRYAN/UL Influenza A (RT-PCR) Negative (Negative) Influenza B (RT-PCR) Negative (Negative) RSV (RT-PCR) Negative (Negative) SARS-CoV-2 RNA (RT-PCR) Negative (Negative) Discharge Plan Discharge Clinical Impression: Abdominal pain, Nausea vomiting and diarrhea Patient Disposition: Home Condition: Stable Instructions: Acute Nausea and Vomiting (ED), Abdominal Pain (ED) Additional Instructions: Your abdominal pain and nausea was treated with intravenous pain and nausea medications as well as intravenous fluids. Unfortunately, our CT scanner is not working at present for additional imaging of your abdomen. Follow-up with your primary care provider in the next 3 days for re-evaluation In the meantime, Zofran as needed under the tongue to help with the nausea symptoms Tylenol as much as 1000 mg per dose as often as 4 times a day as needed for pain or discomfort Drink fluids to stay hydrated Stanley diet if possible over the next few days Return if worse Patient Language: Vietnamese Prescriptions: New ondansetron 8 mg tablet,disintegrating 8 mg PO Q8H PRN (Reason: nausea and vomiting) 5 Days Qty: 20 0RF No Action ondansetron 4 mg tablet,disintegrating 4 mg PO Q6H PRN (Reason: nausea and vomiting) Qty: 20 0RF Nexplanon 68 mg implant 1 implant subdermal ONCE Qty: 1 0RF Rx Instructions: as a single dose Lot- [id number] 2027-03 [facility]- 96914-200-34 STEPH/AW alprazolam 0.5 mg tablet 0.5 mg PO BID PRN (Reason: anxiety) Qty: 20 0RF acetaminophen 500 mg capsule 1,000 mg PO Q6H PRN (Reason: pain) metoclopramide HCl 10 mg tablet 10 mg PO Q6H PRN (Reason: nausea and vomiting) Qty: 30 0RF citalopram 40 mg tablet See Rx Instructions .ROUTE .COMPLEX Qty: 90 2RF Dose Instruction: TAKE 1 TABLET BY MOUTH EVERY DAY Rx Instructions: TAKE 1 TABLET BY MOUTH EVERY DAY pantoprazole 40 mg tablet,delayed release (DR/EC) See Rx Instructions .ROUTE .COMPLEX Qty: 42 0RF Dose Instruction: TAKE 1 TABLET BY MOUTH EVERY MORNING Rx Instructions: TAKE 1 TABLET BY MOUTH EVERY MORNING Xifaxan 550 mg tablet See Rx Instructions .ROUTE .COMPLEX Qty: 30 3RF Dose Instruction: TAKE 1 TABLET BY MOUTH EVERY DAY Rx Instructions: TAKE 1 TABLET BY MOUTH EVERY DAY ondansetron HCl 4 mg tablet 4 mg PO Q8H PRN (Reason: nausea and vomiting) Qty: 30 3RF Follow-up/Referrals: Lavelle Chávez DO [Primary Care Provider, [facility]] - 3 Days Referral Note: Abdominal pain, nausea vomiting, and chronic diarrhea, treated with Zofran and morphine. Zofran as an outpatient was prescribed. CT imaging not available. Clinical Impression: Nausea vomiting and diarrhea; Abdominal pain Time of Disposition: 11:44
[2025-07-27] MEDS: ONDANSETRON INJ 4 MG/2 ML VIAL IV PUSH (09:51)
[2025-07-27] MEDS: SODIUM CHLORIDE 0.9% IV 1,000 ML 999 ML IV CONT (09:51)
[2025-07-27 10:00] VITALS: BP 117/84; PULSE 61; RESP 18; TEMP 36.8; O2SAT 100
[2025-07-27 10:01] LABS: Hematocrit 40.6 % (35.0-49.0); Hemoglobin 12.6 g/dL (12.0-15.0); Immature Granulocyte Percent A 0.7 % (0.0-0.0); Lymphocytes Absolute Auto 1.14 K/mm3 (1.10-4.50); Mean Corpuscular HGB Conc 31.0 g/dL (32-36); Mean Corpuscular Hemoglobin 25.0 pg (27.0-31.0); Mean Corpuscular Volume 80.4 fL (78.0-102.0); Nucleated Red Blood Cells Absolute Auto 0.00 K/mm3 (0.00-0.00); Nucleated Red Blood Cells Perc 0.0 % (0-0.0); Platelet Count Result 346 K/mm3 (150-420); Red Blood Count 5.05 M/mm3 (4.20-5.40); White Blood Count 11.6 K/mm3 (4.8-10.8)
[2025-07-27 10:04] LABS: Add Urine Microscopic? NO; Appearance Urine Clear (Clear); Glucose Urine UA Negative (Negative); Leukocyte Esterase Ur Negative LEU/UL (Negative); Nitrate Urine Negative (Negative); Specific Grav Ur 1.020 (1.010-1.020)
[2025-07-27 10:16] LABS: Alanine Aminotransferase 36 U/L (6-35); Albumin Level 4.5 g/dL (3.5-5.1); Alkaline Phosphatase 59 U/L (38-126); Amylase 102 U/L (30-110); Anion Gap 10 mmol/L (4-12); Aspartate Amino Transferase 31 U/L (14-36); Bilirubin,Total 0.5 mg/dL (0.2-1.3); Blood Urea Nitrogen 12 mg/dL (7-17); Calcium 8.8 mg/dL (8.4-10.2); Carbon Dioxide 24 mmol/L (22-30); Chloride 108 mmol/L (98-107); Estimated CRCL calculation 102 ml/min; Estimated Glomerular Filt Rate > 60; Glucose 112 mg/dL (65-110); Lipase 164 U/L (23-300); Magnesium 2.2 mg/dL (1.6-2.3); Osmolality Calculated 294 mOsm/kg (285-295); Potassium 4.2 mmol/L (3.4-5.0); Sodium 142 mmol/L (137-145); Total Protein 8.3 g/dL (6.3-8.2)
[2025-07-27 10:30] VITALS: BP 119/74; PULSE 58; RESP 17; O2SAT 100
[2025-07-27 10:37] LABS: Influenza A QL RT-PCR Negative (Negative); Influenza B QL RT-PCR Negative (Negative); RSV RNA, RT-PCR Negative (Negative); SARS-CoV-2 RNA PCR Negative (Negative)
[2025-07-27 10:53] LABS: SPREG INTERNAL CONTROL Positive; Serum Qual hCG Negative
[2025-07-27 11:00] VITALS: BP 121/70; PULSE 57; RESP 17; O2SAT 100
--- OUTSIDE RECORDS SUMMARY | 2025-07-27 11:05 | XMS_ITS | Clinical Summary ---
Author Organization [facility] [address] [facility] [address] [facility] [address] Address [address] [place] [address] Care Team Providers Care Wood Crew Supervisor Name Role Phone Miscellaneous, Not In [...] is not due for a follow-up with delivery and mail sorter until May. We will check pelvic and [...] on file Legal Sex Female 11:14 PM CARDIAC SPECIALIST Gender Identity Not on file Sexual Orientation [...] Comments Blood Pressure 124/78 08/15/2023 10:20 AM CARDIAC SPECIALIST Pulse 71 06/25/2023 12:48 PM CDT Temperature 36.6 C (97.9 F) 06/25/2023 12:48 PM CDT Respiratory Rate 16 06/25/2023 12:48 PM CDT Oxygen Saturation 100% 06/25/2023 12:48 PM CDT Inhaled Oxygen Concentration - - Weight 89.4 kg (197 lb) 08/15/2023 10:20 AM CARDIAC SPECIALIST Height 162.6 cm (5' 4) 08/15/2023 10:20 AM CARDIAC SPECIALIST Body Mass Index 33.81 08/15/2023 10:20 AM CARDIAC SPECIALIST Plan of Treatment Health Maintenance Due Date [...] has been evaluated with computer assisted technology. Bakery Clerk Juan Miguel Mcneill Comment: ABC, CT(ASCP) CT screening [facility] Administration DOU[place] [address] [id number] Comment GenymobileKathOlga Lidia Mccabe Comment: EXPLANATORY NOTE: The Pap [...] ORDERABLES Final Re sult [address] [address]ino[address] Mccabe [id number] [place] [address] from Last 3 Months or Most Recently Relevant to Health Maintenance Insurance [employer] OPEN ACCESS [facility] OPEN [facility]ESS [facility] Care Teams Wood Crew Supervisor Relationship Specialty Start Date End Date Miscellaneous, Not In File PCP - General 06/25/23
--- OUTSIDE RECORDS SUMMARY | 2025-07-27 11:05 | XMS_ITS | Clinical Summary ---
Author Organization [facility] Address [address] [place] [address] Phone Care Team Providers Care Hanger Off Name Role Phone Syed Santos Primary Care Provider Meredith Meng APRN, SLIPCOVER CUTTER Unavailable Allergies Active Allergy Reactions Criticality Noted [...] depression. Her fiance is deployed to the [employer]. We increase the dose of Celexa [...] Priority Date/Time Associated Diagnosis Comments PATHOLOGY CYTOLOGY IP ARCHITECT 07/28/2021 12:00 AM CDT from Last 3 Months or Most Recently Relevant to Health Maintenance Results * PATHOLOGY CYTOLOGY IP ARCHITECT (07/28/2021 12:00 AM CDT) 07/28/2021 us Provider Scan PATHOLOGY/CYTOLOGY ORDERABLES Fi nal Result SCAN from Last 3 Months or Most Recently Relevant to Health Maintenance Care Teams Hanger Off Relationship Specialty Start Date End Date Syed Santos, PAC [address] [place] [address] PCP - General Physician Collections Director 11/20/23 Meredith Meng, ENVIRONMENTAL HEALTH AND SAFETY LEADER, SLIPCOVER CUTTER [address] [place] [address] Nurse Practitioner Advanced Practice Nurse 02/04/24
[2025-07-27 11:30] VITALS: BP 120/67; PULSE 71; RESP 18; O2SAT 100
[2025-07-27] MEDS: MORPHINE SULFATE (*CRX) 2 MG/ML INJ IV PUSH (11:40)
--- NOTE | 2025-07-27 11:54 | PC.NURSE ---
ERP reports patient is safe to leave, significant other in room is driving.
[2025-07-27 12:00] VITALS: BP 131/79; PULSE 75; RESP 18; TEMP 36.8; O2SAT 100
== END 2025-07-27 12:00 | disposition home or self-care (01) ==
PROVIDERS: Emergency Provider Emergency Medicine; PCP Family Medicine
DX: R10.9 Unspecified abdominal pain (principal); R11.2 Nausea with vomiting, unspecified; R19.7 Diarrhea, unspecified; Z20.822 Contact with and (suspected) exposure to COVID-19
CPT/HCPCS: 36415; 80053; 81003; 82150; 83605; 83690; 83735; 84703; 85025; 87637; 96361; 96374; 96375; 99284; J2270; J2405; J7030

== ENCOUNTER 2025-07-29 06:01 | Emergency (ER) | payer OTHER, SELFPAY ==
--- NOTE | ~2025-07-29 | CT_ITS ---
CT abdomen pelvis w con Clinical History: abd pain . Comparison: 06/25/2025 Technique: Axial images lung bases to symphysis pubis IV contrast information not listed in PACS Coronal, sagittal reformats CT images acquired with automatic exposure control for dose reduction DLP: 944 mGy-cm Findings: Lung bases: Clear. Visualized heart and pericardium: Unremarkable. Liver: Unremarkable. Gallbladder: Unremarkable. Spleen: Unremarkable. Pancreas: Unremarkable. Adrenal glands: Unremarkable. Kidneys: Right kidney- No hydronephrosis. No renal stones. Left kidney- No hydronephrosis. No renal stones. Distal esophagus/stomach: Mild distal esophageal wall thickening/esophagitis. Small bowel loops: Areas of apparent minimal wall thickening but under distended. Colon: Diverticula. Apparent minimal wall thickening but under distended. Normal RLQ appendix. Nodes: No enlarged nodes. Peritoneum: No ascites. No free air. Urinary bladder: Unremarkable. Uterus: Unremarkable. Adnexa: No masses. Bones: No acute bony abnormality. Soft tissues: Unremarkable. Aorta: No aneurysm or dissection. IVC: Unremarkable. Main portal vein/SMV/splenic vein: Patent. IMPRESSION: 1. Minimal enterocolitis possible. 2. Otherwise no acute abnormality. Reviewed, dictated and finalized at location R.
--- OUTSIDE RECORDS SUMMARY | 2025-07-29 06:03 | XMS_ITS | Clinical Summary ---
Author Organization [facility] Address [address] [place] [address] Phone Care Team Providers Care Administration Dean Name Role Phone Syed Santos Primary Care Provider [phone] Meredith Meng APRN, RUBBER THREAD SPOOLER Unavailable Allergies Active Allergy Reactions Criticality Noted [...] depression. Her fiance is deployed to the [employer]. We increase the dose of Celexa [...] Priority Date/Time Associated Diagnosis Comments PATHOLOGY CYTOLOGY INTERNATIONAL OPERATIONS MANAGER 07/28/2021 12:00 AM CDT from Last 3 Months or Most Recently Relevant to Health Maintenance Results * PATHOLOGY CYTOLOGY INTERNATIONAL OPERATIONS MANAGER (07/28/2021 12:00 AM CDT) 07/28/2021 us Provider Scan PATHOLOGY/CYTOLOGY ORDERABLES Fi nal Result SCAN from Last 3 Months or Most Recently Relevant to Health Maintenance Care Teams Administration Dean Relationship Specialty Start Date End Date Syed Santos, PAC [address] [place] [address] PCP - General Physician Cattle Inspector 11/20/23 Meredith Meng, AUTO CRANE DRIVER, RUBBER THREAD SPOOLER [address] [place] [address] Nurse Practitioner Advanced Practice Nurse 02/04/24
[2025-07-29 06:05] VITALS: BP 143/85; PULSE 70; RESP 16; TEMP 37; O2SAT 100
--- NOTE | 2025-07-29 06:29 | ED.NAVMDI ---
HPI - Nausea/Vomiting/Diarrhea General Chief complaint: Nausea/Vomiting/Diarrhea <Markus Garay MD - Last Filed: 07/29/25 07:12> Stated complaint: vomiting and diarrhea <Markus Garay MD - Last Filed: 07/29/25 07:12> Time Seen by Provider: 07/29/25 06:11 <Markus Garay MD - Last Filed: 07/29/25 07:12> History of Present Illness HPI Narrative: 30-year-old female with a history of C difficile colitis recently about 1 month prior treated with oral vancomycin. She has a history of irritable bowel syndrome and GERD. Has been dealing with diarrhea, left lower quadrant abdominal pain radiating into her flank as well as nausea and vomiting. She went to another emergency department 2 days ago where they had lab work but no CT scan availability to complete her workup. Patient decided to go home instead of being transferred. She has been dealing with pain since Sunday. No relief despite her home medications including Tylenol, Zofran and PPI. 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 This encounter occurred about 3 weeks ago. Denies any other new symptoms. No traumatic injuries. No fever. No dysuria. Denies chance of . <Markus Garay MD - Last Filed: 07/29/25 07:12> Related Data Home medications: Home Medications ?Medication ?Instructions ?Recorded ?Confirmed ?Last Taken ?Type acetaminophen 500 mg capsule 1,000 mg PO Q6H PRN pain 05/04/25 07/14/25 Unknown History <Markus Garay MD - Last Filed: 07/29/25 07:12> Allergies/Adverse reactions: Allergies Allergy/AdvReac Type Severity Reaction Status Date / Time NSAIDS (Non-Steroidal Allergy Mild hives Verified 07/29/25 06:14 Anti-Inflamma <Markus Garay MD - Last Filed: 07/29/25 07:12> Review of Systems Review of Systems: As reviewed above in HPI <Markus Garay MD - Last Filed: 07/29/25 07:12> PMFSH Past Medical History Medical History: Medical History BRBPR (bright red blood per rectum) Rectal pain Nausea & vomiting Alternating constipation and diarrhea IBS (irritable bowel syndrome) <Markus Garay MD - Last Filed: 07/29/25 07:12> Surgical History Surgical History: Surgical History [place] teeth extracted <Markus Garay MD - Last Filed: 07/29/25 07:12> Family History Family History: Family History Grandparent Diabetes mellitus Other Cerebrovascular accident Coronary artery disease <Markus Garay MD - Last Filed: 07/29/25 07:12> Social History Social History: Social History Smoking status: Never smoker Tobacco type: e-cigarettes/vaping Additional smoking assessment comments: VAPING DAILY FOR 2 YRS Alcohol intake: current Alcohol use details: 3 PER MONTH Substance use: never Living arrangements: with family <Markus Garay MD - Last Filed: 07/29/25 07:12> Exam Narrative: GENERAL: Uncomfortable appearing but not any acute distress. HEAD: [Normocephalic, atraumatic.] EYES: [PERRLA and EOMI.] ENT: Nares clear, no rhinorrhea or epistaxis. Mucous membranes moist. NECK: Supple. CHEST: [Clear to auscultation. No respiratory distress.] HEART: [Regular rate and rhythm]. No murmur heard. [Normal peripheral pulses.] ABDOMEN: Soft, nondistended, nontender to light palpation but tender in left lower quadrant with deep palpation. No CVA tenderness. No rigidity or signs of peritonitis. EXTREMITIES: Normal range of motion. [No edema.] SKIN: Warm, dry, no rash. NEURO: [No focal deficits]. Alert and oriented [x3.] PSYCH: [Normal mood and affect.] <Markus Garay MD - Last Filed: 07/29/25 07:12> Course Course Emergency Course: Monica: This is a 30-year-old female who has recently been treated for C diff presenting left lower quadrant pain and diarrhea. Signed out to me pending CT abdomen pelvis. CT abdomen pelvis showed possible enterocolitis. On exam patient is tender in the left lower quadrant. The rest were laboratory studies and vital signs are stable. I discussed admission versus discharge she is still very uncomfortable. She has follow-up with GI tomorrow. She is comfortable going home provided we can control her pain and nausea. She was given Dilaudid and Compazine with some improvement. She feels okay to go home, but have stressed the importance of her coming back to the ED if her pain is getting worse or she is unable to control her symptoms at home. She has follow-up with [facility] Santizo -GI tomorrow morning. Patient discharged with return precautions. Patient has for Fidoxymycin at home which I recommend she take. <Yonis Anderson MD - Last Filed: 07/29/25 11:03> Vital Signs Vital signs: Vital Signs Temperature 98.6 F 07/29/25 06:05 Pulse Rate 70 07/29/25 06:05 Respiratory Rate 16 07/29/25 06:05 Blood Pressure 143/85 H 07/29/25 06:05 Pulse Oximetry 100 07/29/25 06:05 Oxygen Delivery Room Air 07/29/25 06:05 Temperature 98.6 F 07/29/25 06:05 Pulse Rate 70 07/29/25 09:55 Respiratory Rate 15 07/29/25 09:55 Blood Pressure 128/73 07/29/25 09:55 Pulse Oximetry 100 07/29/25 09:55 Oxygen Delivery Room Air 07/29/25 06:05 <Markus Garay MD - Last Filed: 07/29/25 07:12> Vital Signs Temperature 98.6 F 07/29/25 06:05 Pulse Rate 70 07/29/25 06:05 Respiratory Rate 16 07/29/25 06:05 Blood Pressure 143/85 H 07/29/25 06:05 Pulse Oximetry 100 07/29/25 06:05 Oxygen Delivery Room Air 07/29/25 06:05 Temperature 98.6 F 07/29/25 06:05 Pulse Rate 70 07/29/25 09:55 Respiratory Rate 15 07/29/25 09:55 Blood Pressure 128/73 07/29/25 09:55 Pulse Oximetry 100 07/29/25 09:55 Oxygen Delivery Room Air 07/29/25 06:05 <Yonis Anderson MD - Last Filed: 07/29/25 11:03> MDM - Nausea/Vomiting/Diarrhea MDM Narrative Medical decision making narrative: 30-year-old female with a history of C difficile colitis recently about 1 month prior treated with oral vancomycin. She has a history of irritable bowel syndrome and GERD. Has been dealing with diarrhea, left lower quadrant abdominal pain radiating into her flank as well as nausea and vomiting. She went to another emergency department 2 days ago where they had lab work but no CT scan availability to complete her workup. Patient decided to go home instead of being transferred. She has been dealing with pain since Sunday. No relief despite her home medications including Tylenol, Zofran and PPI. 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 This encounter occurred about 3 weeks ago. Denies any other new symptoms. No traumatic injuries. No fever. No dysuria. Denies chance of . Abdominal examination shows a soft, nondistended abdomen, nontender to light palpation but tender in left lower quadrant with deep palpation. No CVA tenderness. No rigidity or signs of peritonitis. Hemodynamically stable without any tachycardia, fever, hypoxia or blood pressure concerns. Suspect colitis, diverticulitis, toxic megacolon, obstruction, IBS, less likely abscess formation or perforation. She was given morphine and fluids as well as Zofran for symptom control. CT scan with contrast obtained as well as blood work. Patient care signed over to morning physician upon shift change for completion of workup and final disposition based on results. <Markus Garay MD - Last Filed: 07/29/25 07:12> Medical Records Attestation: I reviewed the patient's medical records. <Markus Garay MD - Last Filed: 07/29/25 07:12> Lab Data Result diagrams: 07/29/25 06:25 07/29/25 06:25 <Markus Garay MD - Last Filed: 07/29/25 07:12> Labs: Lab Results 07/29/25 07/29/25 Range/Units 06:25 06:29 WBC 7.1 (4.5-10.0) K/mm3 RBC 5.08 (4.2-5.4) M/mm3 Hgb 12.8 (12.0-15.0) g/dL Hct 40.9 (37.0-47.0) % MCV 80.5 (80-100) fl MCH 25.2 L (26-34) pg MCHC 31.3 L (32-36) g/dl RDW 14.6 H (11.5-14.5) % Plt Count 341 (150-375) k/mm3 MPV 9.8 (7.4-10.4) fl Immature Gran % (Auto) 0.3 (0-0.5) % Neut % (Auto) 61.8 (45.5-73.1) % Lymph % (Auto) 27.9 (18.3-44.2) % Armstrong % (Auto) 5.6 (2.6-8.5) % Eos % (Auto) 3.4 (0-4.4) % Baso % (Auto) 1.0 (0.2-1.2) % Lymph # (Auto) 1.99 (0.9-3.2) K/mm3 Armstrong # (Auto) 0.4 (0.1-0.6) K/mm3 Eos # (Auto) 0.2 (0-0.3) K/mm3 Baso # (Auto) 0.1 (0.0-0.1) K/mm3 Abs Immat Gran (auto) 0.02 (0.00-0.031) K/mm3 Absolute Neuts (auto) 4.4 (1.3-6.7) K/mm3 Absolute Nucleated RBC 0.000 (0.0-0.012) K/mm3 Nucleated RBC % 0.0 (0.0-0.2) % Sodium 139 (137-145) mmol/L Potassium 3.7 (3.4-5.0) mmol/L Chloride 106 (98-107) mmol/L Carbon Dioxide 23 (22-30) mmol/L Anion Gap 10 (4-12) mmol/L BUN 8 (7-17) mg/dL Creatinine 0.80 (0.7-1.0) mg/dL Estim Creat Clear Calc 95 ml/min Estimated GFR > 60 (59 - ) Glucose 105 (65-110) mg/dL Calcium 9.3 (8.4-10.2) mg/dL Total Bilirubin 1.0 (0.2-1.3) mg/dL AST 23 (14-36) U/L ALT 26 (6-35) U/L Alkaline Phosphatase 68 (38-126) U/L Total Protein 7.9 (6.3-8.2) g/dL Albumin 4.4 (3.5-5.1) g/dL Lipase 99 (23-300) U/L Urine Color Dark yellow (Yellow) Urine Appearance Turbid H (Clear) Urine pH 5.5 (5.0-9.0) Ur Specific Winthrop 1.026 (1.001-1.035) Urine Protein 1+ H (Negative) mg/dL Urine Glucose (UA) Negative (Negative) mg/dL Urine Ketones Trace H (Negative) mg/dL Ur Blood (Man) Negative (Negative) Urine Nitrate Negative (Negative) Urine Bilirubin Negative (Negative) Urine Urobilinogen 1.0 (<2.0) mg/dL Add Ur Microanalysis Reviewed Leukocyte Esterase Rfl Trace H (Negative) BRYAN/UL Urine RBC 6-10 H (0-2) /hpf Urine WBC 0-5 (0-3) /hpf Ur Squamous Epith Cells Many H (Few) /hpf Urine Bacteria 4+ H /hpf Urine Casts 0-2 POC Urine HCG, Qual Negative (Negative) <Markus Garay MD - Last Filed: 07/29/25 07:12> Lab Results 07/29/25 07/29/25 Range/Units 06:25 06:29 WBC 7.1 (4.5-10.0) K/mm3 RBC 5.08 (4.2-5.4) M/mm3 Hgb 12.8 (12.0-15.0) g/dL Hct 40.9 (37.0-47.0) % MCV 80.5 (80-100) fl MCH 25.2 L (26-34) pg MCHC 31.3 L (32-36) g/dl RDW 14.6 H (11.5-14.5) % Plt Count 341 (150-375) k/mm3 MPV 9.8 (7.4-10.4) fl Immature Gran % (Auto) 0.3 (0-0.5) % Neut % (Auto) 61.8 (45.5-73.1) % Lymph % (Auto) 27.9 (18.3-44.2) % Armstrong % (Auto) 5.6 (2.6-8.5) % Eos % (Auto) 3.4 (0-4.4) % Baso % (Auto) 1.0 (0.2-1.2) % Lymph # (Auto) 1.99 (0.9-3.2) K/mm3 Armstrong # (Auto) 0.4 (0.1-0.6) K/mm3 Eos # (Auto) 0.2 (0-0.3) K/mm3 Baso # (Auto) 0.1 (0.0-0.1) K/mm3 Abs Immat Gran (auto) 0.02 (0.00-0.031) K/mm3 Absolute Neuts (auto) 4.4 (1.3-6.7) K/mm3 Absolute Nucleated RBC 0.000 (0.0-0.012) K/mm3 Nucleated RBC % 0.0 (0.0-0.2) % Sodium 139 (137-145) mmol/L Potassium 3.7 (3.4-5.0) mmol/L Chloride 106 (98-107) mmol/L Carbon Dioxide 23 (22-30) mmol/L Anion Gap 10 (4-12) mmol/L BUN 8 (7-17) mg/dL Creatinine 0.80 (0.7-1.0) mg/dL Estim Creat Clear Calc 95 ml/min Estimated GFR > 60 (59 - ) Glucose 105 (65-110) mg/dL Calcium 9.3 (8.4-10.2) mg/dL Total Bilirubin 1.0 (0.2-1.3) mg/dL AST 23 (14-36) U/L ALT 26 (6-35) U/L Alkaline Phosphatase 68 (38-126) U/L Total Protein 7.9 (6.3-8.2) g/dL Albumin 4.4 (3.5-5.1) g/dL Lipase 99 (23-300) U/L Urine Color Dark yellow (Yellow) Urine Appearance Turbid H (Clear) Urine pH 5.5 (5.0-9.0) Ur Specific W[place] 1.026 (1.001-1.035) Urine Protein 1+ H (Negative) mg/dL Urine Glucose (UA) Negative (Negative) mg/dL Urine Ketones Trace H (Negative) mg/dL Ur Blood (Man) Negative (Negative) Urine Nitrate Negative (Negative) Urine Bilirubin Negative (Negative) Urine Urobilinogen 1.0 (<2.0) mg/dL Add Ur Microanalysis Reviewed Leukocyte Esterase Rfl Trace H (Negative) BRYAN/UL Urine RBC 6-10 H (0-2) /hpf Urine WBC 0-5 (0-3) /hpf Ur Squamous Epith Cells Many H (Few) /hpf Urine Bacteria 4+ H /hpf Urine Casts 0-2 POC Urine HCG, Qual Negative (Negative) <Yonis Anderson MD - Last Filed: 07/29/25 11:03> Discharge Plan Discharge Clinical Impression: Abdominal pain, History of Clostridioides difficile colitis <Markus Garay MD - Last Filed: 07/29/25 07:12> Patient Disposition: Still a Patient <Markus Garay MD - Last Filed: 07/29/25 07:12> Condition: Stable <Markus Garay MD - Last Filed: 07/29/25 07:12> Additional Instructions: You were seen emergency department for left lower quadrant abdominal pain. Your CT showed enterocolitis. Please use the prescribed medications for your symptoms. Use Tylenol and dicyclomine for abdominal pain. Use oxycodone for breakthrough pain. Use Compazine for nausea and vomiting. Please follow-up with your GI doctor tomorrow morning for further management. Please take the for fidoxymycin you have at home for possible C diff. As we discussed, iff your pain is becoming unbearable or you are unable to keep liquids down please return to the ED for re-evaluation. <Markus Garay MD - Last Filed: 07/29/25 07:12> Patient Language: Ukrainian <Markus Garay MD - Last Filed: 07/29/25 07:12> Prescriptions: New acetaminophen 500 mg tablet 1,000 mg PO TID PRN (Reason: cinda) 7 Days Qty: 42 0RF dicyclomine 20 mg tablet 20 mg PO BID Qty: 30 0RF oxycodone 5 mg tablet 5 mg PO Q4H PRN (Reason: pain) Qty: 10 0RF prochlorperazine maleate [Compazine] 10 mg tablet 10 mg PO Q8H PRN (Reason: nausea and vomiting) Qty: 30 0RF No Action ondansetron 4 mg tablet,disintegrating 4 mg PO Q6H PRN (Reason: nausea and vomiting) Qty: 20 0RF ondansetron 8 mg tablet,disintegrating 8 mg PO Q8H PRN (Reason: nausea and vomiting) 5 Days Qty: 20 0RF Nexplanon 68 mg implant 1 implant subdermal ONCE Qty: 1 0RF Rx Instructions: as a single dose Lot- [id number] 2027-[address] [facility]- 60521-271-16 STEPH/AW alprazolam 0.5 mg tablet 0.5 mg PO BID PRN (Reason: anxiety) Qty: 20 0RF acetaminophen 500 mg capsule 1,000 mg PO Q6H PRN (Reason: pain) metoclopramide HCl 10 mg tablet 10 mg PO Q6H PRN (Reason: nausea and vomiting) Qty: 30 0RF citalopram 40 mg tablet See Rx Instructions .ROUTE .COMPLEX Qty: 90 2RF Dose Instruction: TAKE 1 TABLET BY MOUTH EVERY DAY Rx Instructions: TAKE 1 TABLET BY MOUTH EVERY DAY pantoprazole 40 mg tablet,delayed release (DR/EC) See Rx Instructions .ROUTE .COMPLEX Qty: 42 0RF Dose Instruction: TAKE 1 TABLET BY MOUTH EVERY MORNING Rx Instructions: TAKE 1 TABLET BY MOUTH EVERY MORNING Xifaxan 550 mg tablet See Rx Instructions .ROUTE .COMPLEX Qty: 30 3RF Dose Instruction: TAKE 1 TABLET BY MOUTH EVERY DAY Rx Instructions: TAKE 1 TABLET BY MOUTH EVERY DAY ondansetron HCl 4 mg tablet 4 mg PO Q8H PRN (Reason: nausea and vomiting) Qty: 30 3RF <Markus Garay MD - Last Filed: 07/29/25 07:12> Follow-up/Referrals: Buschling,Lavelle P., DO [Primary Care Provider, Family Practice] <Markus Garay MD - Last Filed: 07/29/25 07:12>
[2025-07-29 06:32] LABS: BEDSIDEPREGUCG Negative (Negative)
[2025-07-29 06:33] LABS: Hematocrit 40.9 % (37.0-47.0); Hemoglobin 12.8 g/dL (12.0-15.0); Immature Granulocyte Percent A 0.3 % (0-0.5); Lymphocytes Absolute Auto 1.99 K/mm3 (0.9-3.2); Mean Corpuscular HGB Conc 31.3 g/dl (32-36); Mean Corpuscular Hemoglobin 25.2 pg (26-34); Mean Corpuscular Volume 80.5 fl (80-100); Nucleated Red Blood Cells Absolute Auto 0.000 K/mm3 (0.0-0.012); Nucleated Red Blood Cells Perc 0.0 % (0.0-0.2); Platelet Count Result 341 k/mm3 (150-375); Red Blood Count 5.08 M/mm3 (4.2-5.4); White Blood Count 7.1 K/mm3 (4.5-10.0)
[2025-07-29] MEDS: ONDANSETRON INJ 4 MG/2 ML VIAL IV PUSH (06:34)
[2025-07-29] MEDS: LACTATED RINGERS 1,000 ML 999 ML IV CONT (06:34)
[2025-07-29] MEDS: MORPHINE SULFATE (*CRX) 4 MG/ML INJ IV PUSH (06:34)
[2025-07-29 06:46] LABS: Add Urine Microscopic? YES; Appearance Urine Turbid (Clear); Glucose Urine UA Negative (Negative); Leukocyte Esterase Ur Trace LEU/UL (Negative); Need Manual Microscopic Reviewed; Nitrate Urine Negative (Negative); Non Pathogenic Casts 0-2; Specific Grav Ur 1.026 (1.001-1.035)
[2025-07-29 06:56] LABS: Alanine Aminotransferase 26 U/L (6-35); Albumin Level 4.4 g/dL (3.5-5.1); Alkaline Phosphatase 68 U/L (38-126); Anion Gap 10 mmol/L (4-12); Aspartate Amino Transferase 23 U/L (14-36); Bilirubin,Total 1.0 mg/dL (0.2-1.3); Blood Urea Nitrogen 8 mg/dL (7-17); Calcium 9.3 mg/dL (8.4-10.2); Carbon Dioxide 23 mmol/L (22-30); Chloride 106 mmol/L (98-107); Estimated CRCL calculation 95 ml/min; Estimated Glomerular Filt Rate > 60; Glucose 105 mg/dL (65-110); Lipase 99 U/L (23-300); Potassium 3.7 mmol/L (3.4-5.0); Sodium 139 mmol/L (137-145); Total Protein 7.9 g/dL (6.3-8.2)
[2025-07-29 07:05] VITALS: BP 118/77; PULSE 61; RESP 16; O2SAT 99
--- OUTSIDE RECORDS SUMMARY | 2025-07-29 07:26 | XMS_ITS | Clinical Summary ---
Author Organization [facility] [address] [facility] Address [address] [place] [address] Care Team Providers Care Electro Mechanical Solar Technician Name Role Phone Miscellaneous, Not In [...] is not due for a follow-up with disaster recovery manager until May. We will check pelvic and [...] dysphoria since her fiance was deployed to [facility] for a year. He [...] on file Legal Sex Female 11:14 PM NETWORK PROGRAM MANAGER Gender Identity Not on file Sexual Orientation Not on file Occupation Industry Job Start Date Job End Date [employer] Not on file Not on [...] Comments Blood Pressure 124/78 08/15/2023 10:20 AM NETWORK PROGRAM MANAGER Pulse 71 06/25/2023 12:48 PM CDT Temperature 36.6 C (97.9 F) 06/25/2023 12:48 PM CDT Respiratory Rate 16 06/25/2023 12:48 PM CDT Oxygen Saturation 100% 06/25/2023 12:48 PM CDT Inhaled Oxygen Concentration - - Weight 89.4 kg (197 lb) 08/15/2023 10:20 AM NETWORK PROGRAM MANAGER Height 162.6 cm (5' 4) 08/15/2023 10:20 AM NETWORK PROGRAM MANAGER Body Mass Index 33.81 08/15/2023 10:20 AM NETWORK PROGRAM MANAGER Plan of Treatment Health Maintenance Due Date [...] has been evaluated with computer assisted technology. Application Internship Juan Miguel Mcneill Comment: ABC, CT(ASCP) CT [place] [facility] [address] [id number] Comment AppwappKathOlga Lidia Mccabe Comment: EXPLANATORY NOTE: The Pap [...] NP LAB CYTOLOGY ORDERABLES Final Re sult [facility] Mccabe [id number] [place] [address] from Last 3 Months or Most Recently Relevant to Health Maintenance Insurance [employer] OPEN ACCESS [facility] OPEN ACCESS [facility] Care Teams Electro Mechanical Solar Technician Relationship Specialty Start Date End Date Miscellaneous, Not In File PCP - General 06/25/23
--- OUTSIDE RECORDS SUMMARY | 2025-07-29 07:26 | XMS_ITS | Clinical Summary ---
Author Organization [facility] Address [address] [place] [address] Phone Care Team Providers Care Orthoptist Name Role Phone Syed Santos Primary Care Provider Meredith Meng APRN, SCREENING UNIT REGISTERED NURSE Unavailable Allergies Active Allergy Reactions Criticality Noted [...] depression. Her fiance is deployed to the [employer] [place]. We increase the dose of Celexa [...] Priority Date/Time Associated Diagnosis Comments PATHOLOGY CYTOLOGY BRUSH FABRICATION SUPERVISOR 07/28/2021 12:00 AM CDT from Last 3 Months or Most Recently Relevant to Health Maintenance Results * PATHOLOGY CYTOLOGY BRUSH FABRICATION SUPERVISOR (07/28/2021 12:00 AM CDT) 07/28/2021 us Provider Scan PATHOLOGY/CYTOLOGY ORDERABLES Fi nal Result SCAN from Last 3 Months or Most Recently Relevant to Health Maintenance Care Teams Orthoptist Relationship Specialty Start Date End Date Syed Santos, PAC [address] [place] [address] PCP - General Physician Vacuum Extractor Operator 11/20/23 Meredith Meng, CARD SORTER, SCREENING UNIT REGISTERED NURSE [address] [place] [address] Nurse Practitioner Advanced Practice Nurse 02/04/24
[2025-07-29 08:03] VITALS: BP 122/98; PULSE 63; RESP 15; O2SAT 100
[2025-07-29] MEDS: HYDROmorphone HCL INJ (*CRX) 1 MG/ML SYR 0.5 MG IV PUSH ×2 (09:02→11:16)
[2025-07-29] MEDS: PROCHLORPERAZINE EDISYLATE 10 MG/2 ML VIAL IM (09:54)
[2025-07-29 09:55] VITALS: BP 128/73; PULSE 70; RESP 15; O2SAT 100
[2025-07-29 11:30] VITALS: BP 120/73; PULSE 75; RESP 15; TEMP 36.6; O2SAT 99
== END 2025-07-29 11:31 | disposition home or self-care (01) ==
LOC: ANHED 07:24
PROVIDERS: Emergency Provider Student in an Organized Health Care Education/Training Program; PCP Family Medicine
DX: R10.32 Left lower quadrant pain (principal); K58.9 Irritable bowel syndrome, unspecified; K21.9 Gastro-esophageal reflux disease without esophagitis
CPT/HCPCS: 36415; 74177; 80053; 81001; 81025; 83690; 85025; 96361; 96372; 96374; 96375; 96376; 99284; J0780; J1171; J2270; J2405; J7120; Q9967

== ENCOUNTER 2025-07-30 15:33 | Outpatient (CLI) | payer OTHER, SELFPAY ==
--- OUTSIDE RECORDS SUMMARY | 2025-07-30 16:31 | XMS_ITS | Clinical Summary ---
Author Organization [facility] Address [address] [place] [address] Phone Care Team Providers Care Guest History Clerk Name Role Phone Syde Santos Primary Care Provider [phone] Meredith Meng APRN, CUFFING MACHINE OPERATOR Unavailable Allergies Active Allergy Reactions [...] depression. Her fiance is deployed to the [employer] [place]. We increase the dose of Celexa [...] Priority Date/Time Associated Diagnosis Comments PATHOLOGY CYTOLOGY MACHINE SETUP OPERATOR 07/28/2021 12:00 AM CDT from Last 3 Months or Most Recently Relevant to Health Maintenance Results * PATHOLOGY CYTOLOGY MACHINE SETUP OPERATOR (07/28/2021 12:00 AM CDT) 07/28/2021 us Provider Scan PATHOLOGY/CYTOLOGY ORDERABLES Fi nal Result SCAN from Last 3 Months or Most Recently Relevant to Health Maintenance Care Teams Guest History Clerk Relationship Specialty Start Date End Date Syed Santos, PAC [address] [place] [address] PCP - General Physician Fuel Oil Truck Driver 11/20/23 Meredith Meng, RADIOLOGY NURSE, CUFFING MACHINE OPERATOR [address] [place] [address] Nurse Practitioner Advanced Practice Nurse 02/04/24
--- OUTSIDE RECORDS SUMMARY | 2025-07-30 16:31 | XMS_ITS | Clinical Summary ---
Author Organization [facility] [address] [facility] Address [address] [place] [address] Care Team Providers Care Cafe Aide Name Role Phone Miscellaneous, Not In [...] is not due for a follow-up with obstetrician and gynaecologist until May. We will check pelvic and [...] depression. Her fiance is deployed to the [facility]. We increase the dose of Celexa [...] dysphoria since her fiance was deployed to [facility] for a year. He is [...] on file Legal Sex Female 11:14 PM CLAIM REP Gender Identity Not on file Sexual Orientation Not on file Occupation Industry Job Start Date Job End Date [employer] Not on file Not on [...] Comments Blood Pressure 124/78 08/15/2023 10:20 AM CLAIM REP Pulse 71 06/25/2023 12:48 PM CDT Temperature 36.6 C (97.9 F) 06/25/2023 12:48 PM CDT Respiratory Rate 16 06/25/2023 12:48 PM CDT Oxygen Saturation 100% 06/25/2023 12:48 PM CDT Inhaled Oxygen Concentration - - Weight 89.4 kg (197 lb) 08/15/2023 10:20 AM CLAIM REP Height 162.6 cm (5' 4) 08/15/2023 10:20 AM CLAIM REP Body Mass Index 33.81 08/15/2023 10:20 AM CLAIM REP Plan of Treatment Health Maintenance Due Date [...] has been evaluated with computer assisted technology. Count Team Clerk Juan Miguel Mcneill Comment: ABC, CT(ASCP) [facility] [address] [place] [id number] Comment JellynoteKathOlga Lidia Mccabe Comment: EXPLANATORY NOTE: The Pap [...] ORDERABLES Final Re sult [facility]abe [address] [place] [address] from Last 3 Months or Most Recently Relevant to Health Maintenance Insurance [employer] OPEN ACCESS [employer] OPEN ACCESS [facility] Care Teams Cafe Aide Relationship Specialty Start Date End Date Miscellaneous, Not In File PCP - General 06/25/23
[2025-07-30 17:35] LABS: CRP < 0.5 mg/dL (<1.0)
== END 2025-07-30 15:34 | disposition home or self-care (01) ==
PROVIDERS: PCP Family Medicine; Visit Provider Nurse Practitioner
DX: K21.9 Gastro-esophageal reflux disease without esophagitis (principal); A04.72 Enterocolitis due to Clostridium difficile, not specified as recurrent
CPT/HCPCS: 36415; 85652; 86140

== ENCOUNTER 2025-07-31 08:56 | Outpatient (NON) | payer OTHER, SELFPAY ==
--- OUTSIDE RECORDS SUMMARY | 2025-07-31 09:07 | XMS_ITS | Clinical Summary ---
Author Organization [facility] Address [address] [place] [address] Phone Care Team Providers Care Real Estate Investor Name Role Phone Syed Santos Primary Care Provider Meredith Meng APRN, CARTOGRAPHIC DESIGNER Unavailable Allergies Active Allergy Reactions Criticality [...] depression. Her fiance is deployed to the [employer] [place]. We increase the dose of Celexa [...] Priority Date/Time Associated Diagnosis Comments PATHOLOGY CYTOLOGY ICT DEVELOPMENT MANAGER 07/28/2021 12:00 AM CDT from Last 3 Months or Most Recently Relevant to Health Maintenance Results * PATHOLOGY CYTOLOGY ICT DEVELOPMENT MANAGER (07/28/2021 12:00 AM CDT) 07/28/2021 us Provider Scan PATHOLOGY/CYTOLOGY ORDERABLES Fi nal Result SCAN from Last 3 Months or Most Recently Relevant to Health Maintenance Care Teams Real Estate Investor Relationship Specialty Start Date End Date Syed Santos, PAC [address] [place] [address] PCP - General Physician Quality Checker 11/20/23 Meredith Meng, QUALITY CONTROL TECH RAW MATERIALS, CARTOGRAPHIC DESIGNER [address] [place] [address] Nurse Practitioner Advanced Practice Nurse 02/04/24
--- OUTSIDE RECORDS SUMMARY | 2025-07-31 09:07 | XMS_ITS | Clinical Summary ---
Author Organization [facility] [place] [facility] Address [address] [place] [address] Care Team Providers Care Duplicate Maker Name Role Phone Miscellaneous, Not In File [...] is not due for a follow-up with cotton buyer until May. We will check pelvic and [...] Her fiance is deployed to the [facility]. We increase the dose of [...] dysphoria since her fiance was deployed to [facility] [place] for a year. [...] on file Legal Sex Female 11:14 PM CUSTOM WOOD STAIR BUILDER Gender Identity Not on file Sexual Orientation Not on file Occupation Industry Job Start Date Job End Date [employer] Not on file Not on file Not [...] Comments Blood Pressure 124/78 08/15/2023 10:20 AM CUSTOM WOOD STAIR BUILDER Pulse 71 06/25/2023 12:48 PM CDT Temperature 36.6 C (97.9 F) 06/25/2023 12:48 PM CDT Respiratory Rate 16 06/25/2023 12:48 PM CDT Oxygen Saturation 100% 06/25/2023 12:48 PM CDT Inhaled Oxygen Concentration - - Weight 89.4 kg (197 lb) 08/15/2023 10:20 AM CUSTOM WOOD STAIR BUILDER Height 162.6 cm (5' 4) 08/15/2023 10:20 AM CUSTOM WOOD STAIR BUILDER Body Mass Index 33.81 08/15/2023 10:20 AM CUSTOM WOOD STAIR BUILDER Plan of Treatment Health Maintenance Due Date [...] has been evaluated with computer assisted technology. Oracle R12 Developer Juan Miguel Mcneill Comment: ABC, CT(ASCP) CT screening location: Naomi [facility]ador[facility] Administration [place]oles [address] Comment ConfovisKathOlga Lidia Mccabe Comment: EXPLANATORY NOTE: The Pap [...] ORDERABLES Final Re sult NAOMI PinoSt Mccabe [id number] [place] [address] from Last 3 Months or Most Recently Relevant to Health Maintenance Insurance 5 CUPS and some sugar OPEN ACCESS [employer] OPEN ACCESS [facility] Care Teams Duplicate Maker Relationship Specialty Start Date End Date Miscellaneous, Not In File PCP - General 06/25/23
[2025-07-31 10:44] LABS: Toxigenic C. Diff POSITIVE (NEGATIVE)
[2025-07-31 12:00] LABS: CDiff Toxin A&B Ag Negative (Negative); Clostridium Difficile GDH Ag Positive (Negative)
== END 2025-07-31 08:57 | disposition home or self-care (01) ==
PROVIDERS: Visit Provider Nurse Practitioner
DX: K21.9 Gastro-esophageal reflux disease without esophagitis (principal); A04.72 Enterocolitis due to Clostridium difficile, not specified as recurrent
CPT/HCPCS: 87324; 87449; 87493

== ENCOUNTER 2025-08-18 08:43 | Outpatient (CLI) | payer OTHER, SELFPAY ==
--- OUTSIDE RECORDS SUMMARY | 2025-08-18 08:55 | XMS_ITS | Clinical Summary ---
Author Organization [facility] Address [address] [place] [address] Phone Care Team Providers Care Mail Clerks Supervisor Name Role Phone Syed Santos Primary Care Provider [phone] Meredith Meng APRN, RED HAT LINUX ENGINEER Unavailable Allergies Active Allergy Reactions Criticality Noted [...] depression. Her fiance is deployed to the [employer] [place]. We increase the dose of Celexa [...] Encounters Date Type Department Care Team Description 08/05/2025 [facility] - [address] [place] [address] Syed Santos, OLINDA from Last 3 Months Immunizations Immunization Administration [...] Priority Date/Time Associated Diagnosis Comments PATHOLOGY CYTOLOGY MANNEQUIN WIG MAKER 07/28/2021 12:00 AM CDT from Last 3 Months or Most Recently Relevant to Health Maintenance Results * PATHOLOGY CYTOLOGY MANNEQUIN WIG MAKER (07/28/2021 12:00 AM CDT) 07/28/2021 us Provider Scan PATHOLOGY/CYTOLOGY ORDERABLES Fi nal Result SCAN from Last 3 Months or Most Recently Relevant to Health Maintenance Care Teams Mail Clerks Supervisor Relationship Specialty Start Date End Date Syed Santos, PAC [address] [place] [id number] PCP - General Physician Employment Attorney 11/20/23 Meredith Meng, BLANKBOOK FORWARDER, RED HAT LINUX ENGINEER [address] [place] [address] Nurse Practitioner Advanced Practice Nurse 02/04/24
--- OUTSIDE RECORDS SUMMARY | 2025-08-18 08:55 | XMS_ITS | Clinical Summary ---
Author Organization [facility] [place] 163 [facility] Address [address] [place] [address] Care Team Providers Care Amusement Or Recreation Card Checker Name Role Phone Miscellaneous, Not In File [...] is not due for a follow-up with warehouse selector until May. We will check pelvic and [...] depression. Her fiance is deployed to the [facility]. We increase the dose of Celexa [...] dysphoria since her fiance was deployed to [facility] [place] for a year. He is in the [...] on file Legal Sex Female 11:14 PM CRISIS THERAPIST Gender Identity Not on file Sexual Orientation Not on file Occupation Industry Job Start Date Job End Date [employer] Not on file Not on file [...] Comments Blood Pressure 124/78 08/15/2023 10:20 AM CRISIS THERAPIST Pulse 71 06/25/2023 12:48 PM CDT Temperature 36.6 C (97.9 F) 06/25/2023 12:48 PM CDT Respiratory Rate 16 06/25/2023 12:48 PM CDT Oxygen Saturation 100% 06/25/2023 12:48 PM CDT Inhaled Oxygen Concentration - - Weight 89.4 kg (197 lb) 08/15/2023 10:20 AM CRISIS THERAPIST Height 162.6 cm (5' 4) 08/15/2023 10:20 AM CRISIS THERAPIST Body Mass Index 33.81 08/15/2023 10:20 AM CRISIS THERAPIST Plan of Treatment Health Maintenance Due Date [...] has been evaluated with computer assisted technology. Banquet Prep Cook Juan Miguel Mcneill Comment: ABC, CT(ASCP) [facility] Administration [place] [address] Comment Atrua TechnologiesKathOlga Lidia Mccabe Comment: EXPLANATORY NOTE: The [...] ORDERABLES Final Re sult NAOMI PinoSt Mccabe [address] [place] [address] from Last 3 Months or Most Recently Relevant to Health Maintenance Insurance [employer] OPEN ACCESS HEALTHLINK OPEN ACCESS [facility] Care Teams Amusement Or Recreation Card Checker Relationship Specialty Start Date End Date Miscellaneous, Not In File PCP - General 06/25/23
[2025-08-18 09:01] LABS: Hematocrit 41.3 % (35.0-49.0); Hemoglobin 12.8 g/dL (12.0-15.0); Immature Granulocyte Percent A 0.1 % (0.0-0.0); Lymphocytes Absolute Auto 1.60 K/mm3 (1.10-4.50); Mean Corpuscular HGB Conc 31.0 g/dL (32-36); Mean Corpuscular Hemoglobin 25.2 pg (27.0-31.0); Mean Corpuscular Volume 81.5 fL (78.0-102.0); Nucleated Red Blood Cells Absolute Auto 0.00 K/mm3 (0.00-0.00); Nucleated Red Blood Cells Perc 0.0 % (0-0.0); Platelet Count Result 342 K/mm3 (150-420); Red Blood Count 5.07 M/mm3 (4.20-5.40); White Blood Count 6.7 K/mm3 (4.8-10.8)
[2025-08-18 09:18] LABS: Alanine Aminotransferase 17 U/L (6-35); Albumin Level 4.7 g/dL (3.5-5.1); Alkaline Phosphatase 58 U/L (38-126); Anion Gap 8 mmol/L (4-12); Aspartate Amino Transferase 23 U/L (14-36); Bilirubin,Total 1.6 mg/dL (0.2-1.3); Blood Urea Nitrogen 10 mg/dL (7-17); CRP < 0.5 mg/dL (<1.0); Calcium 9.0 mg/dL (8.4-10.2); Carbon Dioxide 26 mmol/L (22-30); Chloride 109 mmol/L (98-107); Estimated Glomerular Filt Rate > 60; Glucose 98 mg/dL (65-110); Lipase 85 U/L (23-300); Osmolality Calculated 295 mOsm/kg (285-295); Potassium 3.8 mmol/L (3.4-5.0); Sodium 143 mmol/L (137-145); Total Protein 7.7 g/dL (6.3-8.2)
== END 2025-08-18 08:44 | disposition home or self-care (01) ==
PROVIDERS: PCP Family Medicine; Visit Provider Family Medicine
DX: K52.9 Noninfective gastroenteritis and colitis, unspecified (principal); R10.9 Unspecified abdominal pain
CPT/HCPCS: 36415; 80053; 83690; 85025; 86140

== ENCOUNTER 2025-08-28 01:31 | Day surgery (SDC) | payer OTHER, SELFPAY ==
[2025-08-07 11:12] VITALS: BMI 33.5
--- NOTE | 2025-08-11 14:10 | PC.NURSE ---
Patient states no changes in medications or medical history since last PAT call on 08-07-25. Reviewed new arrival and procedure times. Patient verbalizes understanding. Informed patient to call endoscopy unit if she has trouble with her prep instructions. Patient verbalizes understanding and no new questions at this time.
--- OUTSIDE RECORDS SUMMARY | 2025-08-28 01:41 | XMS_ITS | Clinical Summary ---
Author Organization [facility] Address [address] [place] [address] Phone Care Team Providers Care Relays Draftsperson Name Role Phone Syed Santos Primary Care Provider Meredith Meng APRN, ACUTE CARE CLINICAL NURSE SPECIALIST Unavailable Allergies Active Allergy Reactions Criticality [...] depression. Her fiance is deployed to the [employer] [place]. We increase the dose of Celexa [...] Department Care Team Description 08/05/2025 [facility] - [address] [place] [address] Syed Santos, OLINDA from Last 3 [...] Comments Hepatitis C Virus (HCV) Screening 1997 Varicella Immunization (1 of 2 - 13+ 2-dose series) 2010 Human Papillomavirus (HPV) Immunization (3 - 3-dose [...] Date/Time Associated Diagnosis Comments PATHOLOGY CYTOLOGY MACHINE BRUSH MAKER 07/28/2021 12:00 AM CDT from Last 3 Months or Most Recently Relevant to Health Maintenance Results * PATHOLOGY CYTOLOGY MACHINE BRUSH MAKER (07/28/2021 12:00 AM CDT) 07/28/2021 us Provider Scan PATHOLOGY/CYTOLOGY ORDERABLES Fi nal Result SCAN from Last 3 Months or Most Recently Relevant to Health Maintenance Care Teams Relays Draftsperson Relationship Specialty Start Date End Date Syed Santos, PAC [address] [place] [address] PCP - General Physician Orthopedically Impaired Teacher 11/20/23 Meredith Meng, TOY DESIGNER, ACUTE CARE CLINICAL NURSE SPECIALIST [address] [place] [address] Nurse Practitioner Advanced Practice Nurse 02/04/24
[2025-08-28 12:59] VITALS: BP 147/84; PULSE 79; RESP 16; TEMP 36.7; O2SAT 100
[2025-08-28 13:00] VITALS: BMI 34.0
[2025-08-28] MEDS: LACTATED RINGERS 1,000 ML 150 ML IV CONT (13:11)
--- NOTE | 2025-08-28 13:42 | P.HP_ITS ---
H&P: HPI History of Present Illness Date/Time: 08/28/25 13:42 Chief Complaint: GERD-recurrent C diff infection Narrative: Patient referred for EGD and colonoscopy. She has a longstanding history of GERD, which is controlled with pantoprazole. However, she complains of frequent nausea and occasional vomiting. She was seen by me in January this year, diagnosed with IBS-D, responded to a course of Xifaxan. Subsequently, shoe and after her tonsillectomy she developed diarrhea which was C diff positive. She was treated with vancomycin a recurrence and now she is in a taper regimen of fidaxomicin. A colonoscopy is requested to rule out underlying pathology, mainly inflammatory bowel disease explaining recurrent C diff. Review of Systems Review of Systems: All systems reviewed & are unremarkable except as noted in HPI and below PMFSH Past Medical History Medical History BRBPR (bright red blood per rectum) Rectal pain Nausea & vomiting Alternating constipation and diarrhea IBS (irritable bowel syndrome) Surgical History Surgical History [place] teeth extracted Family History Family History Grandparent Diabetes mellitus Other Cerebrovascular accident Coronary artery disease Social History Social History Smoking status: Never smoker Tobacco type: e-cigarettes/vaping Additional smoking assessment comments: VAPING DAILY FOR 2 YRS Alcohol intake: current Drinks per week: 1 Alcohol use details: 3 PER MONTH Substance use: never Living arrangements: with family Spiritual care concerns: No Meds Home Medications and Allergies Home Medications ?Medication ?Instructions ?Recorded ?Confirmed ?Type metoclopramide HCl 10 mg tablet 10 mg PO Q6H PRN nause a and 12/19/24 08/28/25 Rx vomiting #30 tabs etonogestrel 68 mg subdermal 1 implant subdermal ONCE #1 ea 02/10/25 08/07/25 Rx implant (Nexplanon) citalopram 40 mg tablet See Rx Instructions .Route 0 02/11/25 08/28/25 Rx .COMPLEX #90 tabs acetaminophen 500 mg capsule 1,000 mg PO Q6H PRN pain 05/04/25 08/28/25 History ondansetron 4 mg disintegrating 4 mg PO Q6H PRN nausea and 05/15/25 08/07/25 Rx tablet vomiting #20 tabs ondansetron HCl 4 mg tablet 4 mg PO Q8H PRN nausea and 07/01/25 08/07/25 Rx vomiting #30 tabs ondansetron 8 mg disintegrating 8 mg PO Q8H PRN nausea and 07/27/25 08/07/25 Rx tablet vomiting 5 days #20 tabs acetaminophen 500 mg tablet 1,000 mg (2 x 500 mg) PO T ID PRN 07/29/25 08/28/25 Rx cinda 7 days #42 tabs oxycodone 5 mg tablet 5 mg PO Q4H PRN pain #10 tab s 07/29/25 08/07/25 Rx prochlorperazine maleate 10 mg 10 mg PO Q8H PRN nausea and 07/29/25 08/07/25 Rx tablet (Compazine) vomiting #30 tabs hydrocodone 5 mg-acetaminophen 325 1 tablet PO Q8H PRN pain #10 tabs 07/30/25 08/07/25 Rx mg tablet hydrocortisone 2.5 % topical cream 1 applic RECTAL BID #30 grams 07/30/25 08/07/25 Rx with perineal applicator (Anusol-HC) rifaximin 550 mg tablet (Xifaxan) See Rx Instructions .Route 07/30/25 08/28/25 Rx .COMPLEX #30 tabs alprazolam 0.5 mg tablet 0.5 mg PO BID PRN anxiety #2 0 tabs 08/07/25 08/28/25 Rx hyoscyamine sulfate 0.125 mg See Rx Instructions .Rout e 08/20/25 08/28/25 Rx sublingual tablet .COMPLEX #360 tabs Allergies Allergy/AdvReac Type Severity Reaction Status Date / Time NSAIDS (Non-Steroidal Allergy Mild hives Verified 08/28/25 12:56 Anti-Inflamma Vital Signs Vital Signs - 24 hr 08/28/25 12:59 Temperature 98.1 F Pulse Rate 79 Respiratory Rate 16 Blood Pressure 147/84 H Pulse Oximetry 100 Oxygen Delivery Room Air Exam Const: General: cooperative and healthy appearing Resp: Effort & Inspection: normal respiratory effort and able to speak in complete sentences Auscultation: clear to auscultation bilaterally Cardio: Rate: regular rate Rhythm: regular rhythm GI: Inspection: normal to inspection GI Palp: No No hepatosplenomegaly present Auscultation: normal bowel sounds Rectal Exam: deferred Skin: General skin exam: normal color Psych: Appearance: grossly normal Mental Status: mental status grossly normal Assessment and Plan Assessment and plan (1) GERD (gastroesophageal reflux disease): Code(s): K21.9 - Gastro-esophageal reflux disease without esophagitis Status: Acute Assessment and Plan: The patient is deemed a good candidate for the procedures. Consent signed. Will proceed. (2) Diarrhea: Code(s): R19.7 - Diarrhea, unspecified Status: Acute
--- NOTE | 2025-08-28 14:11 | P.PNAN_ITS ---
Anes - Initial Pre Proc Eval Procedure: Operation Date: 08/28/25 14:30 Proposed Procedures p EGD & Diagnostic Colonoscopy - Mariusz Hair MD Date/Time: 08/28/25 14:11 Surgeon: Mariusz Hair MD Pre Op Diagnosis: GERD,entercolitis,abdominal pain Patient Data Age: 30 Gender: F Height: 1.6 m Weight: 87.3 kg Last Vital Signs Temp 36.7 C 08/28/25 12:59 Pulse 79 08/28/25 12:59 Resp 16 08/28/25 12:59 BP 147/84 H 08/28/25 12:59 Pulse Ox 100 08/28/25 12:59 O2 Del Method Room Air 08/28/25 12:59 Allergies Allergy/AdvReac Type Severity Reaction Status Date / Time NSAIDS (Non-Steroidal Allergy Mild hives Verified 08/28/25 12:56 Anti-Inflamma Home Medications ?Medication ?Instructions ?Recorded ?Confirmed ?Type metoclopramide HCl 10 mg tablet 10 mg PO Q6H PRN nause a and 12/19/24 08/28/25 Rx vomiting #30 tabs etonogestrel 68 mg subdermal 1 implant subdermal ONCE #1 ea 02/10/25 08/07/25 Rx implant (Nexplanon) citalopram 40 mg tablet See Rx Instructions .Route 0 02/11/25 08/28/25 Rx .COMPLEX #90 tabs acetaminophen 500 mg capsule 1,000 mg PO Q6H PRN pain 05/04/25 08/28/25 History ondansetron 4 mg disintegrating 4 mg PO Q6H PRN nausea and 05/15/25 08/07/25 Rx tablet vomiting #20 tabs ondansetron HCl 4 mg tablet 4 mg PO Q8H PRN nausea and 07/01/25 08/07/25 Rx vomiting #30 tabs ondansetron 8 mg disintegrating 8 mg PO Q8H PRN nausea and 07/27/25 08/07/25 Rx tablet vomiting 5 days #20 tabs acetaminophen 500 mg tablet 1,000 mg (2 x 500 mg) PO T ID PRN 07/29/25 08/28/25 Rx cinda 7 days #42 tabs oxycodone 5 mg tablet 5 mg PO Q4H PRN pain #10 tab s 07/29/25 08/07/25 Rx prochlorperazine maleate 10 mg 10 mg PO Q8H PRN nausea and 07/29/25 08/07/25 Rx tablet (Compazine) vomiting #30 tabs hydrocodone 5 mg-acetaminophen 325 1 tablet PO Q8H PRN pain #10 tabs 07/30/25 08/07/25 Rx mg tablet hydrocortisone 2.5 % topical cream 1 applic RECTAL BID #30 grams 07/30/25 08/07/25 Rx with perineal applicator (Anusol-HC) rifaximin 550 mg tablet (Xifaxan) See Rx Instructions .Route 07/30/25 08/28/25 Rx .COMPLEX #30 tabs alprazolam 0.5 mg tablet 0.5 mg PO BID PRN anxiety #2 0 tabs 08/07/25 08/28/25 Rx hyoscyamine sulfate 0.125 mg See Rx Instructions .Rout e 08/20/25 08/28/25 Rx sublingual tablet .COMPLEX #360 tabs Patient hx anesthesia problems: none Family hx anesthesia problems: none Results Review: All pre-operative results and documents have been reviewed as part of the pre- operative evaluation. [facility] Past Medical History Medical History BRBPR (bright red blood per rectum) Rectal pain Nausea & vomiting Alternating constipation and diarrhea IBS (irritable bowel syndrome) Surgical History Surgical History [place] teeth extracted Family History Family History Grandparent Diabetes mellitus Other Cerebrovascular accident Coronary artery disease Social History Social History Smoking status: Never smoker Tobacco type: e-cigarettes/vaping Additional smoking assessment comments: VAPING DAILY FOR 2 YRS Alcohol intake: current Drinks per week: 1 Alcohol use details: 3 PER MONTH Substance use: never Living arrangements: with family Spiritual care concerns: No Anes - Eval Final PreProcedure Day of Procedure 08/28/25 14:11 Patient weight: obese Heart: regular rate and rhythm Lungs: clear to auscultation Airway: Mallampati scale class 1 Neurological: alert and oriented Last oral intake: >/= 8 hours ASA classification: II Emergent: no Anesthetic plan: proceed Anesthesia type and monitoring: general GIVS and standard monitoring Results Review: All pre-operative results and documents have been reviewed as part of the pre- operative evaluation. Informed Consent: The patient's anesthetic plan and its attendant risks and benefits were discussed with the patient/family/POA. Questions were solicited and answers provided to the satisfaction of the patient/family/POA.
--- NOTE | 2025-08-28 14:27 | S_PTH ---
PATIENT: Kathy Mallory LOC: [facility] U#:[id number] AGE/SX: 30/F ROOM: RE08/28/[address]: Mariusz Hair MD : 1995 BED: DIS: 08/28/2025 SPEC #: [id number] RECD: 08/31/25 07:28 STATUS: KWABENA REGreer #: [id number] FITO: 08/28/25 14:[address]: Mariusz Hair DEPT: [facility] Surgical RECD BY: Lauren Lantigua ENTERED: 08/31/25 07:29 SP TYPE: Surgical OTHR DR: Lavelle Chávez DO Tissues: A - Gastric Biopsy B - Gastric Biopsy C - Colon Biopsy D - Colon Biopsy E - Colon Biopsy Procedures: Hematoxylin and Eosin Stain Gross and Microscopic Level 4
--- NOTE | 2025-08-28 14:35 | SUR.OPER ---
EGD END TIME 142 COLONOSCOPY START TIME 143
[2025-08-28 14:45] VITALS: BP 103/57; PULSE 71; RESP 18; O2SAT 100
[2025-08-28 14:55] VITALS: BP 100/58; PULSE 66; RESP 16; O2SAT 100
[2025-08-28 15:05] VITALS: BP 146/74; PULSE 86; RESP 19; O2SAT 100
[2025-08-31 11:46] LABS: BEDSIDEPREGUCG Negative (Negative)
== END 2025-08-28 15:20 | disposition home or self-care (01) ==
PROVIDERS: PCP Family Medicine; Referring Provider Nurse Practitioner; Visit Provider Internal Medicine Gastroenterology
PROC: 0DJ08ZZ Inspection of Upper Intestinal Tract, Via Natural or Artificial Opening Endoscopic (ICD-10-PCS; CPT 45378; principal; 2025-08-28 14:30)
DX: R19.7 Diarrhea, unspecified (principal); K29.50 Unspecified chronic gastritis without bleeding; K21.9 Gastro-esophageal reflux disease without esophagitis; F17.290 Nicotine dependence, other tobacco product, uncomplicated; E66.9 Obesity, unspecified; Z68.34 Body mass index [BMI] 34.0-34.9, adult
CPT/HCPCS: 45380; 43239; 88305; J2003; J2704; J7120

== ENCOUNTER 2025-09-25 05:55 | Emergency (ER) | payer OTHER, SELFPAY ==
[2025-09-25 05:57] VITALS: BP 131/75; PULSE 77; RESP 16; TEMP 36.1; O2SAT 100
--- OUTSIDE RECORDS SUMMARY | 2025-09-25 06:20 | XMS_ITS | Clinical Summary ---
Author Organization [facility] Address [address] [place] [address] Phone Care Team Providers Care Cut Out Operator Name Role Phone Syed Santos Primary Care Provider Meredith Meng APRN, HOUSE FATHER Unavailable Allergies Active Allergy Reactions Criticality Noted [...] depression. Her fiance is deployed to the [employer]. We increase the dose of Celexa [...] Department Care Team Description 08/05/2025 [facility] - [address] [place] [address] Syed Santos, OLINDA from Last 3 [...] Priority Date/Time Associated Diagnosis Comments PATHOLOGY CYTOLOGY MEAT MARKET MANAGER 07/28/2021 12:00 AM CDT from Last 3 Months or Most Recently Relevant to Health Maintenance Results * PATHOLOGY CYTOLOGY MEAT MARKET MANAGER (07/28/2021 12:00 AM CDT) 07/28/2021 us Provider Scan PATHOLOGY/CYTOLOGY ORDERABLES Fi nal Result SCAN from Last 3 Months or Most Recently Relevant to Health Maintenance Care Teams Cut Out Operator Relationship Specialty Start Date End Date Syed Santos, PAC [address] [place] [address] PCP - General Physician Crusher 11/20/23 Meredith Meng, SECURITY SYSTEMS MANAGER, HOUSE FATHER [address] [place] [address] Nurse Practitioner Advanced Practice Nurse 02/04/24
[2025-09-25] MEDS: SODIUM CHLORIDE 0.9% IV 1,000 ML 999 ML IV CONT (06:21)
[2025-09-25] MEDS: ONDANSETRON INJ 4 MG/2 ML VIAL IV PUSH (06:22)
[2025-09-25 06:29] LABS: Hematocrit 38.5 % (35.0-49.0); Hemoglobin 12.0 g/dL (12.0-15.0); Immature Granulocyte Percent A 0.3 % (0.0-0.0); Lymphocytes Absolute Auto 1.44 K/mm3 (1.10-4.50); Mean Corpuscular HGB Conc 31.2 g/dL (32-36); Mean Corpuscular Hemoglobin 25.1 pg (27.0-31.0); Mean Corpuscular Volume 80.4 fL (78.0-102.0); Nucleated Red Blood Cells Absolute Auto 0.00 K/mm3 (0.00-0.00); Nucleated Red Blood Cells Perc 0.0 % (0-0.0); Platelet Count Result 368 K/mm3 (150-420); Red Blood Count 4.79 M/mm3 (4.20-5.40); White Blood Count 7.0 K/mm3 (4.8-10.8)
[2025-09-25 06:31] LABS: Add Urine Microscopic? NO; Appearance Urine Clear (Clear); Glucose Urine UA Negative (Negative); Leukocyte Esterase Ur Negative LEU/UL (Negative); Nitrate Urine Negative (Negative); Specific Grav Ur 1.025 (1.010-1.020)
--- NOTE | 2025-09-25 06:33 | ED_ITS ---
HPI - Nausea/Vomiting/Diarrhea General Chief complaint: Abdominal Pain Stated complaint: abdominal pain Time Seen by Provider: 09/25/25 06:12 Source: patient Mode of arrival: ambulatory Limitations: no limitations History of Present Illness HPI Narrative: This is a 22-year-old female with no significant past medical history presents with nausea vomiting with cough congestion with nasal congestion no shortness of breath no audible wheezing has some episodes of diarrhea with some abdominal pain does have some suprapubic discomfort with no flank pain no fever chills no hematuria no blood in her stool. MD elicited complaint: nausea, vomiting and diarrhea Onset (ago): day(s) Related Data Home Medications ?Medication ?Instructions ?Recorded ?Confirmed ?Last Taken ?Type acetaminophen 500 mg capsule 1,000 mg PO Q6H PRN pain 05/04/25 08/28/25 08/27/25 History Allergies Allergy/AdvReac Type Severity Reaction Status Date / Time NSAIDS (Non-Steroidal Allergy Mild hives Verified 09/25/25 05:58 Anti-Inflamma Review of Systems 2 Review of Systems: All systems reviewed & are unremarkable except as noted in HPI and below PMFSH Past Medical History Medical History BRBPR (bright red blood per rectum) Rectal pain Nausea & vomiting Alternating constipation and diarrhea IBS (irritable bowel syndrome) Surgical History Surgical History [place] teeth extracted Family History Family History Grandparent Diabetes mellitus Other Cerebrovascular accident Coronary artery disease Social History Social History Smoking status: Never smoker Tobacco type: e-cigarettes/vaping Additional smoking assessment comments: VAPING DAILY FOR 2 YRS Alcohol intake: current Drinks per week: 1 Alcohol use details: 3 PER MONTH Substance use: never Living arrangements: with family Spiritual care concerns: No Exam 2 Const: General: healthy appearing and no acute distress Nutritional Appearance: well nourished Orientation/consciousness: patient oriented x3 Limitations: no limitations HENMT: Head: normal to inspection Face and sinus: normal facial exam M outh: Yes Normal oral and palatal mucosa present Eyes: Conjunctivae: conjunctivae normal Neck: Neck: normal visual inspection and no lymphadenopathy Chest: Chest palpation & inspection: normal inspection of the chest Resp: Effort & Inspection: normal respiratory effort Auscultation: clear to auscultation bilaterally Cardio: Rate: regular rate Rhythm: regular rhythm GI: GI Palp: Yes Soft to palpation Auscultation: normal bowel sounds : General: Yes bladder normal to palpation Back/Spine/Pelvis: Back: no CVA tenderness Skin: General skin exam: normal color Rashes: no rashes Course Course Emergency Course: Decision making narrative: The patient was evaluated by myself in the emergency department. History obtained from the patient who is an independent historian physical exam performed a witnessed by nurse. Patient received IV fluids with normal saline and for nausea and vomiting received a dose of Zofran IV. Vital Signs Vital signs: Vital Signs Temperature 36.1 C L 09/25/25 05:57 Pulse Rate 77 09/25/25 05:57 Respiratory Rate 16 09/25/25 05:57 Blood Pressure 131/75 09/25/25 05:57 Pulse Oximetry 100 09/25/25 05:57 Oxygen Delivery Room Air 09/25/25 05:57 Temperature 36.1 C L 09/25/25 05:57 Pulse Rate 77 09/25/25 05:57 Respiratory Rate 16 09/25/25 05:57 Blood Pressure 131/75 09/25/25 05:57 Pulse Oximetry 100 09/25/25 05:57 Oxygen Delivery Room Air 09/25/25 05:57 MDM Differential Diagnosis Differential Diagnosis: Gastroenteritis Lab Data 09/25/25 06:25 09/25/25 06:25 Labs: Lab Results 09/25/25 09/25/25 Range/Units 06:22 06:25 WBC 7.0 (4.8-10.8) K/mm3 RBC 4.79 (4.20-5.40) M/mm3 Hgb 12.0 (12.0-15.0) g/dL Hct 38.5 (35.0-49.0) % MCV 80.4 (78.0-102.0) fL MCH 25.1 L (27.0-31.0) pg MCHC 31.2 L (32-36) g/dL RDW 12.9 (11.6-14.4) % Plt Count 368 (150-420) K/mm3 MPV 9.5 (9.2-11.8) fl Immature Gran % (Auto) 0.3 H (0.0-0.0) % Neut % (Auto) 71.3 H (50.0-70.0) % Lymph % (Auto) 20.7 (18.0-42.0) % [place] % (Auto) 4.7 (2.0-11.0) % Eos % (Auto) 2.3 (1.0-6.0) % Baso % (Auto) 0.7 (0.0-1.0) % Lymph # (Auto) 1.44 (1.10-4.50) K/mm3 [place] # (Auto) 0.33 (0.10-0.90) K/mm3 Eos # (Auto) 0.16 (0.02-0.50) K/mm3 Baso # (Auto) 0.05 (0.00-0.10) K/mm3 Abs Immat Gran (auto) 0.02 H (0.00-0.00) K/mm3 Absolute Neuts (auto) 4.96 (1.70-7.20) K/mm3 Absolute Nucleated RBC 0.00 (0.00-0.00) K/mm3 Nucleated RBC % 0.0 (0-0.0) % Sodium Pending Potassium Pending Chloride Pending Carbon Dioxide Pending Anion Gap Pending BUN Pending Creatinine Pending Estim Creat Clear Calc Pending Estimated GFR Pending Glucose Pending Calculated Osmolality Pending Calcium Pending Total Bilirubin Pending AST Pending ALT Pending Alkaline Phosphatase Pending Total Protein Pending Albumin Pending Urine Color Pending Urine Appearance Pending Urine pH Pending Ur Specific [place] Pending Urine Protein Pending Urine Glucose (UA) Pending Urine Ketones Pending Ur Blood (Man) Pending Urine Nitrate Pending Urine Bilirubin Pending Urine Urobilinogen Pending Leukocyte Esterase Rfl Pending Influenza A (RT-PCR) Pending Influenza B (RT-PCR) Pending RSV (RT-PCR) Pending SARS-CoV-2 RNA (RT-PCR) Pending Critical Care Time Critical Care Time Critical Care Time: No Discharge Plan Discharge Clinical Impression: Gastroenteritis Patient Disposition: Home Condition: Stable Instructions: Antibiotic Form, Gastroenteritis (ED), Acute Nausea and Vomiting (ED) Additional Instructions: Advised follow-up with primary care physician and take medicine as prescribed Patient Language: Mexican Prescriptions: New ondansetron 4 mg tablet,disintegrating 4 mg PO Q6H PRN (Reason: nausea and vomiting) Qty: 14 0RF No Action ondansetron 4 mg tablet,disintegrating 4 mg PO Q6H PRN (Reason: nausea and vomiting) Qty: 20 0RF ondansetron 8 mg tablet,disintegrating 8 mg PO Q8H PRN (Reason: nausea and vomiting) 5 Days Qty: 20 0RF Xifaxan 550 mg tablet See Rx Instructions .ROUTE .COMPLEX Qty: 30 3RF Dose Instruction: TAKE 1 TABLET BY MOUTH EVERY DAY Rx Instructions: TAKE 1 TABLET BY MOUTH EVERY DAY hydrocortisone [Anusol-HC] 2.5 % cream with perineal applicator 1 applic RECTAL BID Qty: 30 1RF Nexplanon 68 mg implant 1 implant subdermal ONCE Qty: 1 0RF Rx Instructions: as a single dose Lot- [id number] 2027-03 [facility]- [id number] [place] acetaminophen 500 mg tablet 1,000 mg PO TID PRN (Reason: cinda) 7 Days Qty: 42 0RF oxycodone 5 mg tablet 5 mg PO Q4H PRN (Reason: pain) Qty: 10 0RF Patient Comments: not taking prochlorperazine maleate [Compazine] 10 mg tablet 10 mg PO Q8H PRN (Reason: nausea and vomiting) Qty: 30 0RF acetaminophen 500 mg capsule 1,000 mg PO Q6H PRN (Reason: pain) metoclopramide HCl 10 mg tablet 10 mg PO Q6H PRN (Reason: nausea and vomiting) Qty: 30 0RF citalopram 40 mg tablet See Rx Instructions .ROUTE .COMPLEX Qty: 90 2RF Dose Instruction: TAKE 1 TABLET BY MOUTH EVERY DAY Rx Instructions: TAKE 1 TABLET BY MOUTH EVERY DAY ondansetron HCl 4 mg tablet 4 mg PO Q8H PRN (Reason: nausea and vomiting) Qty: 30 3RF hydrocodone-acetaminophen 5-325 mg tablet 1 tablet PO Q8H PRN (Reason: pain) Qty: 10 0RF alprazolam 0.5 mg tablet 0.5 mg PO BID PRN (Reason: anxiety) Qty: 20 0RF hyoscyamine sulfate 0.125 mg tablet, sublingual See Rx Instructions .ROUTE .COMPLEX Qty: 360 1RF Dose Instruction: DISSOLVE 1 TABLET 4 TIMES DAILY Rx Instructions: DISSOLVE 1 TABLET 4 TIMES DAILY Follow-up/Referrals: Lavelle Chávez DO [Primary Care Provider, Family Practice] Stand Alone Forms: Work/School Release IP Time of Disposition: 07:19
[2025-09-25 06:41] LABS: Alanine Aminotransferase 14 U/L (6-35); Albumin Level 4.3 g/dL (3.5-5.1); Alkaline Phosphatase 53 U/L (38-126); Anion Gap 8 mmol/L (4-12); Aspartate Amino Transferase 24 U/L (14-36); Bilirubin,Total 0.5 mg/dL (0.2-1.3); Blood Urea Nitrogen 10 mg/dL (7-17); Calcium 8.9 mg/dL (8.4-10.2); Carbon Dioxide 23 mmol/L (22-30); Chloride 108 mmol/L (98-107); Estimated CRCL calculation 107 ml/min; Estimated Glomerular Filt Rate > 60; Glucose 101 mg/dL (65-110); Osmolality Calculated 287 mOsm/kg (285-295); Potassium 4.0 mmol/L (3.4-5.0); Sodium 139 mmol/L (137-145); Total Protein 7.3 g/dL (6.3-8.2)
[2025-09-25 07:15] LABS: Influenza A QL RT-PCR Negative (Negative); Influenza B QL RT-PCR Negative (Negative); RSV RNA, RT-PCR Negative (Negative); SARS-CoV-2 RNA PCR Negative (Negative)
[2025-09-25 07:30] VITALS: BP 117/74; PULSE 70; RESP 20; TEMP 36.9; O2SAT 100
== END 2025-09-25 07:32 | disposition home or self-care (01) ==
PROVIDERS: Emergency Provider Emergency Medicine; PCP Family Medicine
DX: K52.9 Noninfective gastroenteritis and colitis, unspecified (principal); Z20.822 Contact with and (suspected) exposure to COVID-19
CPT/HCPCS: 36415; 80053; 81003; 85025; 87637; 96361; 96374; 99284; J2405; J7030